=== PATIENT | male | born 1965 | race Caucasian/White ===

== ENCOUNTER 2023-04-21 20:45 | Inpatient (IN) ==
[2023-04-21] MEDS ORDERED: SODIUM CHLORIDE 0.9% 1,000 ML IV ONE (21:07)
[2023-04-21] MEDS ORDERED: ACETAMINOPHEN 1,000 MG/100 ML VIAL IV STA (21:07)
[2023-04-21 21:40] LABS: Alanine Aminotransferase 39 U/L (7-52); Albumin Globulin Ratio 1.1 (0.9-2); Albumin Level 4.4 gm/dl (3.4-5.0); Alkaline Phosphatase 62 U/L (34-104); Anion Gap 8 (3-11); Aspartate Aminotransferase 40 U/L (13-39); BUN Creatinine Ratio 10.7 (10-20); Bilirubin,Total 0.5 mg/dl (0.2-1.0); Blood Urea Nitrogen 16 mg/dl (6-23); Calcium 9.8 mg/dl (8.6-10.3); Carbon Dioxide 30 mmol/L (21-32); Chloride 95 mmol/L (98-107); Est GFR (African American) 59.5 ml/min; Est GFR (Non-African American) 51.4 ml/min; Globulin 3.9 gm/dl (2.5-4.0); Glucose 193 mg/dl (70-99(Fasting)); Magnesium 1.1 mg/dl (1.7-2.4); Potassium 4.2 mmol/L (3.5-5.1); Sodium 133 mmol/L (136-145); Total Protein 8.3 gm/dl (6.0-8.3)
[2023-04-21 21:41] LABS: Basophils # (auto) 0.07 K/uL (0.00-0.20); Basophils % (auto) 0.7 %; Eosinophils # (auto) 0.06 K/uL (0.00-0.50); Eosinophils % (auto) 0.6 %; Hematocrit (blood only) 42.5 % (42.0-52.0); Hemoglobin 14.5 g/dl (14.0-18.0); Immature Granulocytes # (auto) 0.05 K/uL (0.01-0.20); Immature Granulocytes % (auto) 0.5 %; Lymphocytes # (auto) 1.04 K/uL (1.20-3.40); Lymphocytes % (auto) 10.7 %; Mean Corpuscular Hemoglobin 30.1 pg (25.0-34.0); Mean Corpuscular Hgb Conc 34.1 g/dL (32.0-36.0); Mean Corpuscular Volume 88.2 fL (80.0-100.0); Mean Platelet Volume 9.4 fL (9.4-12.4); Monocytes # (auto) 0.92 K/uL (0.11-0.59); Monocytes % (auto) 9.4 %; Neutrophils # (auto) 7.61 K/uL (1.40-6.50); Neutrophils % (auto) 78.1 %; Platelet Count 148 K/uL (130-400); RDW Coefficient of Variation 12.7 % (11.5-14.5); RDW Standard Deviation 41.1 fL (36.4-46.3); Red Blood Count 4.82 M/uL (4.70-6.10); White Blood Count 9.75 K/ul (4.8-10.8)
[2023-04-21 21:46] LABS: Troponin I High Sensitivity 11.1 pg/ml (0-20)
--- NOTE | 2023-04-21 21:48 | Emergency Department Note ---
History of Present Illness General Chief complaint: Fever Stated complaint: Fever Time Seen by Provider: 04/21/23 21:04 History of Present Illness Provider complaint: Fever Onset (ago): day(s) 1 Associated symptoms: + fever/chills 57-year-old male presents emergency department for fever. Patient is here with his . states she is very concerned because patient has a high fever and she thinks he is shaking. Patient states he feels fine with the exception of fever and some mild body aches. He reports no cough. No headache. No chest pain. No difficulty breathing. No neck pain. No nausea vomiting or diarrhea. No hematuria or dysuria. states that she thinks that the patient's fever started because he started taking a statin medication that was recently prescribed to him. Home Medications Medication Instructions Recorded Confirmed Type metformin 1,000 mg tablet 1,000 mg PO BID 10/01/20 04/21/23 History fexofenadine 60 mg tablet 60 mg PO QAM PRN seasonal allergies 12/28/20 04/21/23 History montelukast 10 mg tablet 10 mg PO QAM 04/21/23 04/21/23 History rosuvastatin 20 mg tablet 20 mg PO DAILY 04/21/23 04/21/23 History Allergies Allergy/AdvReac Type Severity Reaction Status Date / Time No Known Allergies Allergy Unverified 04/21/23 21:41 Past Med/Surg History Medical History No pertinent family history HLD (hyperlipidemia) Surgical History No pertinent past surgical history Social History Smoking Status: Never smoker Feels Safe at Home: Yes Physical Exam Vital Signs Vital Signs - 24 hr 04/21/23 20:49 04/21/23 21:06 04/21/23 21:11 Temperature 40.3 C H Temperature Source Temporal Artery Scan Pulse Rate 123 H 105 H Pulse Rate [Apical] 103 H Respiratory Rate 18 20 Respiratory Effort / Characteristics Non-Labored Spontaneous Respiratory Depth Normal Blood Pressure 157/94 H Blood Pressure [Right Arm] 154/91 H Blood Pressure Mean 115 Blood Pressure Mean [Right Arm] 112 Blood Pressure Position Sitting Blood Pressure Position [Right Arm] Lying Pulse Oximetry 95 94 Oxygen Delivery Method Room Air Room Air Sepsis Recent Fever Within 48 Hours Yes Sepsis New/Unexplained Change in Mental Status N/A Sepsis Action Taken by Nursing Physician Notified 04/21/23 21:11 04/21/23 21:11 04/21/23 22:00 Temperature 39.4 C H Temperature Source Oral Pulse Rate Pulse Rate [Apical] 90 Respiratory Rate 20 Respiratory Effort / Characteristics Respiratory Depth Blood Pressure Blood Pressure [Right Arm] 154/91 H Blood Pressure Mean Blood Pressure Mean [Right Arm] 112 Blood Pressure Position Blood Pressure Position [Right Arm] Lying Pulse Oximetry 94 95 Oxygen Delivery Method Room Air Room Air Sepsis Recent Fever Within 48 Hours Sepsis New/Unexplained Change in Mental Status Sepsis Action Taken by Nursing 04/21/23 23:22 04/22/23 01:00 Temperature Temperature Source Pulse Rate 119 H Pulse Rate [Apical] 116 H Respiratory Rate 22 Respiratory Effort / Characteristics Respiratory Depth Blood Pressure Blood Pressure [Right Arm] 144/99 H Blood Pressure Mean Blood Pressure Mean [Right Arm] 114 Blood Pressure Position Blood Pressure Position [Right Arm] Pulse Oximetry 94 Oxygen Delivery Method Room Air Sepsis Recent Fever Within 48 Hours Sepsis New/Unexplained Change in Mental Status Sepsis Action Taken by Nursing Physical Exam GENERAL: He is oriented to person, place, and time. He appears well-developed and well-nourished. He does not appear distressed. HENT: Exam performed. - Head: Normocephalic and atraumatic. - Right Ear: External ear normal. No mastoid erythema - Left Ear: External ear normal. No mastoid erythema - Mouth/Throat: The oropharynx is clear and moist. No trismus in the jaw. No dental abscesses or uvula swelling. No oropharyngeal exudate or tonsillar abscesses. EYES: Conjunctivae and EOM are normal. Pupils are equal, round, and reactive to light. Right eye exhibits no discharge. Left eye exhibits no discharge. No scleral icterus. NECK: Normal range of motion. Neck supple. No JVD present. No spinous process tenderness present. No carotid bruit present. No rigidity. No tracheal deviation and normal range of motion present. No Brudzinski's sign and no Kernig's sign noted. CV: Tachycardic rate, regular rhythm, normal heart sounds and intact distal pulses. There is no peripheral edema. Palpable radial pulses bue. PULM/CHEST: Effort normal and breath sounds normal. No respiratory distress. No stridor. He has no wheezes. He has no rales. - Chest Wall: He exhibits no tenderness. ABD: The abdomen is soft. Bowel sounds are normal. He has no distension. No mass is present. There is no tenderness. There is no rebound, no guarding, no Hoffman's sign and no tenderness at McBurney's point. Rovsig negative. MUSC/SKEL: Normal range of motion. There is no peripheral edema, tenderness or deformity. LYMPH: No cervical adenopathy. NEURO: He is alert and oriented to person, place, and time. He has normal strength. No cranial nerve deficit or sensory deficit. Coordination and gait normal. GCS eye subscore is 4. GCS verbal subscore is 5. GCS motor subscore is 6. Cerebellar tests wnl. SKIN: Skin is warm and dry. He is not diaphoretic. PSYCH: He has a normal mood and affect. Behavior is normal. Judgment and thought content normal. Procedures Lumbar Puncture Time Out Performed: Yes Patient Position: upright Skin Prep: Povidone-Iodine 1% Local Anesthetic: lidocaine 1% Amount of anesthesia used (mL): 7 Spinal Needle Gauge: 22G Interspace Used: L3-L4 Complications: unable to obtain CSF Course Course 2104: The patient was evaluated in room A12. A complete history and physical exam was performed Cardiac monitoring: An order was placed for continuous cardiac monitoring. The monitor shows a rate of 100 with sinus rhythm interpreted by tx 2245: Vital signs stable. Patient alert and oriented x3. On reassessment patient has no nuchal rigidity. No meningeal signs. No pain on palpation of the abdomen. Patient states he feels a little bit cold but otherwise having no pain. No headache neck pain chest pain abdominal pain difficulty breathing. Labs show normal white blood cell count. Normal lactic acid level. Magnesium 1.1. Procalcitonin minimally elevated 0.51. BioFire negative. Given the patient's low magnesium, patient be admitted for magnesium repletion. Rocephin will be ordered for the patient empirically until blood cultures come back given the fever and elevated procalcitonin level. 2335: Patient was evaluated by the hospitalist Dr. Musa. When Dr. Musa evaluated the patient he was more confused. Patient be sent for stat CT scan of the head. 0020: CT scan of the head negative. Urinalysis does not appear infected based off of urine dip. Discussed the case with Dr. Musa and there is concern for MEDICATION AIDE infection encephalitis versus meningitis. Dr. Musa ordered additional acyclovir and vancomycin for the patient. Discussed with the who is at bedside the risks and benefits of treating and evaluating for meningitis versus encephalitis. We did discuss the possibility of having IR connect the LP tomorrow morning versus doing it down here. After discussion with the risks and benefits were discussed and we decided we would attempt LP down here. Written consent was signed by . 0111: Vital signs stable. Unfortunately LP was unsuccessful at obtaining CSF sample. Patient tolerated procedure well. See procedure note. [facility] will continue with plan to treat empirically for encephalitis/meningitis with ceftriaxone vancomycin and acyclovir until LP can be performed tomorrow morning by radiology. Dr. Musa updated and made aware and thanked me for attempting LP in ED. Administered Medications Discontinued Medications Acetaminophen (Ofirmev) 1,000 mg in 100 mls @ 400 mls/hr IV NOW STA Stop: 04/21/23 21:21 Last Infusion: 04/21/23 21:38 Dose: Infused Documented By: Admin: 04/21/23 21:12 Dose: 400 mls/hr Documented By: QGV Sodium Chloride (Nss) 1,000 mls @ 999 mls/hr IV .Q1H1M ONE Stop: 04/21/23 22:07 Last Infusion: 04/21/23 22:51 Dose: Infused Documented By: Admin: 04/21/23 21:12 Dose: 999 mls/hr Documented By: QGV Ceftriaxone Sodium (Rocephin) 1,000 mg in 50 mls @ 100 mls/hr IV NOW STA Stop: 04/21/23 23:13 Last Infusion: 04/21/23 23:25 Dose: Infused Documented By: Admin: 04/21/23 22:57 Dose: 100 mls/hr Documented By: QGV Magnesium Sulfate/Dextrose (Magnesium Sulfate / D5w) 1 gm in 100 mls @ 100 mls/hr IV Q1H MARK Stop: 04/22/23 00:44 Last Infusion: 04/22/23 00:19 Dose: Infused Documented By: Admin: 04/21/23 22:57 Dose: 100 mls/hr Documented By: QGV Lorazepam (Lorazepam 1 Mg/1 Ml Syr Ed Inj Use) 1 mg IV ONE STA Stop: 04/22/23 00:13 Last Admin: 04/22/23 00:28 Dose: 1 mg Documented By: ASW Morphine Sulfate (Morphine Sulfate 2 Mg/Ml Carp) 2 mg IV NOW STA Stop: 04/22/23 00:13 Last Admin: 04/22/23 00:28 Dose: 2 mg Documented By: KITW Medical Decision Making Laboratory Data Attestation: I reviewed the patient's lab results. 04/21/23 21:00 04/21/23 21:00 Lab Results 04/21/23 04/21/23 04/21/23 Range/Units 20:52 21:00 21:00 WBC 9.75 (4.8-10.8) K/ul RBC 4.82 (4.70-6.10) M/uL Hgb 14.5 (14.0-18.0) g/dl Hct 42.5 (42.0-52.0) % MCV 88.2 (80.0-100.0) fL MCH 30.1 (25.0-34.0) pg MCHC 34.1 (32.0-36.0) g/dL RDW Std Deviation 41.1 (36.4-46.3) fL RDW Coeff of Pranay 12.7 (11.5-14.5) % Plt Count 148 (130-400) K/uL MPV 9.4 (9.4-12.4) fL Immature Gran % (Auto) 0.5 % Neut % (Auto) 78.1 % Lymph % (Auto) 10.7 % [place] % (Auto) 9.4 % Eos % (Auto) 0.6 % Baso % (Auto) 0.7 % Neut # (Auto) 7.61 H (1.40-6.50) K/uL Lymph # (Auto) 1.04 L (1.20-3.40) K/uL [place] # (Auto) 0.92 H (0.11-0.59) K/uL Eos # (Auto) 0.06 (0.00-0.50) K/uL Baso # (Auto) 0.07 (0.00-0.20) K/uL Immature Gran # (Auto) 0.05 (0.01-0.20) K/uL PT 12.4 H (9.0-12.0) Seconds INR 1.1 (0.9-1.1) APTT 25.7 (21.0-31.0) Seconds PTT Ratio 0.9 Sodium 133 L (136-145) mmol/L Potassium 4.2 (3.5-5.1) mmol/L Chloride 95 L (98-107) mmol/L Carbon Dioxide 30 (21-32) mmol/L Anion Gap 8 (3-11) BUN 16 (6-23) mg/dl Creatinine 1.49 H (0.6-1.4) mg/dl Est Cr Clr Drug Dosing Not Reportable Est GFR ( Amer) 59.5 ml/min Est GFR (Non-Af Amer) 51.4 ml/min BUN/Creatinine Ratio 10.7 (10-20) Glucose 193 H (70-99(Fasting)) mg/dl POC Glucose 211 H (70-99) mg/dl Lactate 1.8 (0.4-2.0) mmol/L Calcium 9.8 (8.6-10.3) mg/dl Magnesium 1.1 L (1.7-2.4) mg/dl Total Bilirubin 0.5 (0.2-1.0) mg/dl AST 40 H (13-39) U/L ALT 39 (7-52) U/L Alkaline Phosphatase 62 (34-104) U/L Troponin I High Sens 11.1 (0-20) pg/ml Total Protein 8.3 (6.0-8.3) gm/dl Albumin 4.4 (3.4-5.0) gm/dl Globulin 3.9 (2.5-4.0) gm/dl Albumin/Globulin Ratio 1.1 (0.9-2) Procalcitonin 0.51 H (0-0.5) ng/ml Urine Color Urine Appearance (Clear) Urine pH (4.5-7.5) Ur Specific [place] (1.000-1.030) Urine Protein (Negative) Urine Glucose (UA) (Negative) Urine Ketones (Negative) Urine Blood (Negative) Urine Nitrite (Negative) Urine Bilirubin (Negative) Urine Urobilinogen (Negative) Ur Leukocyte Esterase (Negative) Urine WBC (Auto) (0-5) /hpf Urine RBC (Auto) (0-4) /hpf U Hyaline Cast (Auto) (0-5) /lpf U Epithel Cells (Auto) (0-5) /lpf Urine Bacteria (Auto) (Negative) Urine Opiates Screen (Neg) Ur Methadone, Qual (Neg) Urine Barbiturates (Neg) Ur Phencyclidine (PCP) (Neg) U Amphetamin/Meth Scrn (Neg) MDMA (Ecstasy) Screen (Neg) U Benzodiazepines Scrn (Neg) Ur Cocaine Metabolite (Neg) U Marijuana (THC) Screen (Neg) Adenovirus (PCR) Not Detected (NotDetected) Anaplasma Smear See Comment Babesia Smear See Comment B. pertussis DNA (PCR) Not Detected (NotDetected) B.parapertussis DNA PCR Not Detected (NotDetected) Lyme Disease IgG Ab Negative (Negative) Lyme Disease IgM Ab Negative (Negative) C. pneumoniae DNA (PCR) Not Detected (NotDetected) Coronavirus OC43 (PCR) Not Detected (NotDetected) Coronavirus HKU1 (PCR) Not Detected (NotDetected) Coronavirus 229E (PCR) Not Detected (NotDetected) SARS-CoV-2 (PCR) Cancelled Not Detected Coronavirus NL63 (PCR) Not Detected (NotDetected) Human Metapneumovir PCR Not Detected (NotDetected) Influenza Type A (PCR) Cancelled Influenza Type B (PCR) M. pneumoniae (PCR) (NotDetected) Parainfluenza 1 (PCR) (NotDetected) Parainfluenza 2 (PCR) (NotDetected) Parainfluenza 3 (PCR) (NotDetected) Parainfluenza 4 (PCR) (NotDetected) RSV (RT-PCR) RSV (PCR) (NotDetected) Entero/Rhino (PCR) (NotDetected) 04/21/23 04/21/23 04/21/23 Range/Units 21:00 21:00 23:58 WBC (4.8-10.8) K/ul RBC (4.70-6.10) M/uL Hgb (14.0-18.0) g/dl Hct (42.0-52.0) % MCV (80.0-100.0) fL MCH (25.0-34.0) pg MCHC (32.0-36.0) g/dL RDW Std Deviation (36.4-46.3) fL RDW Coeff of Pranay (11.5-14.5) % Plt Count (130-400) K/uL MPV (9.4-12.4) fL Immature Gran % (Auto) % Neut % (Auto) % Lymph % (Auto) % [place] % (Auto) % Eos % (Auto) % Baso % (Auto) % Neut # (Auto) (1.40-6.50) K/uL Lymph # (Auto) (1.20-3.40) K/uL [place] # (Auto) (0.11-0.59) K/uL Eos # (Auto) (0.00-0.50) K/uL Baso # (Auto) (0.00-0.20) K/uL Immature Gran # (Auto) (0.01-0.20) K/uL PT (9.0-12.0) Seconds INR (0.9-1.1) APTT (21.0-31.0) Seconds PTT Ratio Sodium (136-145) mmol/L Potassium (3.5-5.1) mmol/L Chloride (98-107) mmol/L Carbon Dioxide (21-32) mmol/L Anion Gap (3-11) BUN (6-23) mg/dl Creatinine (0.6-1.4) mg/dl Est Cr Clr Drug Dosing Est GFR ( Amer) ml/min Est GFR (Non-Af Amer) ml/min BUN/Creatinine Ratio (10-20) Glucose (70-99(Fasting)) mg/dl POC Glucose (70-99) mg/dl Lactate (0.4-2.0) mmol/L Calcium (8.6-10.3) mg/dl Magnesium (1.7-2.4) mg/dl Total Bilirubin (0.2-1.0) mg/dl AST (13-39) U/L ALT (7-52) U/L Alkaline Phosphatase (34-104) U/L Troponin I High Sens (0-20) pg/ml Total Protein (6.0-8.3) gm/dl Albumin (3.4-5.0) gm/dl Globulin (2.5-4.0) gm/dl Albumin/Globulin Ratio (0.9-2) Procalcitonin (0-0.5) ng/ml Urine Color Yellow Urine Appearance Clear (Clear) Urine pH 7.0 (4.5-7.5) Ur Specific [place] 1.016 (1.000-1.030) Urine Protein 2+ H (Negative) Urine Glucose (UA) Negative (Negative) Urine Ketones Trace H (Negative) Urine Blood 2+ H (Negative) Urine Nitrite Negative (Negative) Urine Bilirubin Negative (Negative) Urine Urobilinogen Negative (Negative) Ur Leukocyte Esterase Negative (Negative) Urine WBC (Auto) 1-5 (0-5) /hpf Urine RBC (Auto) 10-30 H (0-4) /hpf U Hyaline Cast (Auto) 1-5 (0-5) /lpf U Epithel Cells (Auto) 5-10 H (0-5) /lpf Urine Bacteria (Auto) Negative (Negative) Urine Opiates Screen Neg (Neg) Ur Methadone, Qual Neg (Neg) Urine Barbiturates Neg (Neg) Ur Phencyclidine (PCP) Neg (Neg) U Amphetamin/Meth Scrn Neg (Neg) MDMA (Ecstasy) Screen Neg (Neg) U Benzodiazepines Scrn Neg (Neg) Ur Cocaine Metabolite Neg (Neg) U Marijuana (THC) Screen Neg (Neg) Adenovirus (PCR) (NotDetected) Anaplasma Smear Babesia Smear B. pertussis DNA (PCR) (NotDetected) B.parapertussis DNA PCR (NotDetected) Lyme Disease IgG Ab (Negative) Lyme Disease IgM Ab (Negative) C. pneumoniae DNA (PCR) (NotDetected) Coronavirus OC43 (PCR) (NotDetected) Coronavirus HKU1 (PCR) (NotDetected) Coronavirus 229E (PCR) (NotDetected) SARS-CoV-2 (PCR) Coronavirus NL63 (PCR) (NotDetected) Human Metapneumovir PCR (NotDetected) Influenza Type A (PCR) Not Detected Influenza Type B (PCR) Cancelled Not Detected M. pneumoniae (PCR) Not Detected (NotDetected) Parainfluenza 1 (PCR) Not Detected (NotDetected) Parainfluenza 2 (PCR) Not Detected (NotDetected) Parainfluenza 3 (PCR) Not Detected (NotDetected) Parainfluenza 4 (PCR) Not Detected (NotDetected) RSV (RT-PCR) Cancelled RSV (PCR) Not Detected (NotDetected) Entero/Rhino (PCR) Not Detected (NotDetected) Imaging Data Attestation: I personally reviewed and interpreted this imaging study as follows: My Impression: Chest x-ray negative. Airway clear. No pneumothorax. No consolidation. No cardiomegaly or cephalization.. No free air under the diaphragm. No fractures of the skeletal structures. Radiologist's Impression: Head CT 04/21/23 23:35 Exam(s): CT HEAD Without Contrast EXAM: CT Head Without Intravenous Contrast CLINICAL HISTORY: ams. TECHNIQUE: Axial computed tomography images of the head/brain without intravenous contrast. CTDI is 75.02 mGy and DLP is 1406.31 mGy-cm. Automated exposure control was utilized for the study. A dose lowering technique was utilized adhering to the principles of ALARA. COMPARISON: No relevant prior studies available. FINDINGS: Brain: No intracranial hemorrhage. No significant mass effect. No evidence for cortical infarct. Minimal periventricular deep white matter hypodense changes. Ventricles: Unremarkable. No ventriculomegaly. Bones/joints: Unremarkable. No acute fracture. Soft tissues: Unremarkable. Sinuses: Unremarkable as visualized. No acute sinusitis. Mastoid air cells: Unremarkable as visualized. No mastoid effusion. IMPRESSION: No acute intracranial process identified. Electronically signed by: Den Gray MD 04/22/23 00:13 AM ECG Data Attestation: I personally reviewed and interpreted this ECG as follows: Rate (beats per minute): 122 Rhythm: + sinus tachycardia ECG Intervals/blocks: + Normal QRS, + Normal CO and + Normal QT-c ECG ST segments: + Normal ST segments [facility] Narrative 2104: The patient was evaluated in room A12. A complete history and physical exam was performed Cardiac monitoring: An order was placed for continuous cardiac monitoring. The monitor shows a rate of 100 with sinus rhythm interpreted by me 2245: Vital signs stable. Patient alert and oriented x3. On reassessment patient has no nuchal rigidity. No meningeal signs. No pain on palpation of the abdomen. Patient states he feels a little bit cold but otherwise having no pain. No headache neck pain chest pain abdominal pain difficulty breathing. Labs show normal white blood cell count. Normal lactic acid level. Magnesium 1.1. Procalcitonin minimally elevated 0.51. BioFire negative. Given the patient's low magnesium, patient be admitted for magnesium repletion. Rocephin will be ordered for the patient empirically until blood cultures come back given the fever and elevated procalcitonin level. 2335: Patient was evaluated by the hospitalist Dr. Musa. When Dr. Musa evaluated the patient he was more confused. Patient be sent for stat CT scan of the head. 0020: CT scan of the head negative. Urinalysis does not appear infected based off of urine dip. Discussed the case with Dr. Musa and there is concern for MEDICATION AIDE infection encephalitis versus meningitis. Dr. Musa ordered additional acyclovir and vancomycin for the patient. Discussed with the who is at bedside the risks and benefits of treating and evaluating for meningitis versus encephalitis. We did discuss the possibility of having IR connect the LP tomorrow morning versus doing it down here. After discussion with the risks and benefits were discussed and we decided we would attempt LP down here. Written consent was signed by . 0111: Vital signs stable. Unfortunately LP was unsuccessful at obtaining CSF sample. Patient tolerated procedure well. See procedure note. Patient will still be admitted to the [facility] hospitalist team and will continue with plan to treat empirically for encephalitis/meningitis with ceftriaxone vancomycin and acyclovir until LP can be performed tomorrow morning by radiology. Dr. Musa updated and made aware and thanked me for attempting LP in ED. Impression & Plan Hypomagnesemia, Fever Discharge Plan Visit Data Chief Complaint: Fever Stated Complaint: Fever ED Provider: Brice Ham Discharge Problem: Hypomagnesemia, Fever Patient Disposition: Being Evaluated by Hospitalist Forms Stand Alone Forms: My [facility] Prescriptions Prescriptions: No Action metformin 1,000 mg tablet 1,000 mg PO BID montelukast 10 mg tablet 10 mg PO QAM rosuvastatin 20 mg tablet 20 mg PO DAILY Rx Instructions: Patient staes is not giung to take anymore fexofenadine 60 mg Tablet 60 mg PO QAM PRN (Reason: seasonal allergies) Referrals Referrals: PCP,NO [Physician] -
[2023-04-21 21:53] LABS: INR 1.1 (0.9-1.1); Partial Thromboplastin Ratio 0.9; Partial Thromboplastin Time 25.7 Seconds (21.0-31.0); Prothrombin Time 12.4 Seconds (9.0-12.0)
[2023-04-21 22:03] LABS: Procalcitonin 0.51 ng/ml (0-0.5)
[2023-04-21 22:09] LABS: Lyme Ab IgG w/WB Rflx Negative (Negative); Lyme Ab IgM w/WB Rflx Negative (Negative)
[2023-04-21 22:19] LABS: Adenovirus PCR Not Detected (NotDetected); Bordetella parapertussis PCR Not Detected (NotDetected); Bordetella pertussis PCR Not Detected (NotDetected); Chlamydia pneumoniae PCR Not Detected (NotDetected); Coronavirus 229E PCR Not Detected (NotDetected); Coronavirus CoV-2 (COVID19)PCR Not Detected (NotDetected); Coronavirus HKU1 PCR Not Detected (NotDetected); Coronavirus NL63 PCR Not Detected (NotDetected); Coronavirus OC43PCR Not Detected (NotDetected); Human Metapneumovirus PCR Not Detected (NotDetected); Influenza A PCR Not Detected (NotDetected); Influenza B PCR Not Detected (NotDetected); Mycoplasma pneumoniae PCR Not Detected (NotDetected); Parainfluenza Virus 1 PCR Not Detected (NotDetected); Parainfluenza Virus 2 PCR Not Detected (NotDetected); Parainfluenza Virus 3 PCR Not Detected (NotDetected); Parainfluenza Virus 4 PCR Not Detected (NotDetected); Respiratory Syncytial VirusPCR Not Detected (NotDetected); Rhinovirus/Enterovirus PCR Not Detected (NotDetected)
[2023-04-21] MEDS ORDERED: cefTRIAXone SODIUM 1,000 MG/50 ML BAG IV STA (22:44)
[2023-04-21] MEDS: MAGNESIUM SULFATE / D5W 1 GM/100 ML BAG IV SCH (22:57)
[2023-04-21] MEDS ORDERED: VANCOMYCIN CONSULT ACTIVE PRN (23:47)
[2023-04-21] MEDS ORDERED: Patient's HEIGHT &/or WEIGHT Needed STA (23:50)
[2023-04-22] MEDS ORDERED: LORazepam 1 MG/1 ML SYR ED Inj Use IV STA (00:12)
[2023-04-22] MEDS ORDERED: MoRPHine SULFATE 2 MG/ML CARP IV STA (00:12)
[2023-04-22] MEDS ORDERED: LIDOCAINE 2%/EPINEPHRINE 1:100,000 20ML INFIL ONE (00:14)
--- NOTE | 2023-04-22 00:14 | CT Scan Report ---
Exam(s): CT HEAD Without Contrast EXAM: CT Head Without Intravenous Contrast CLINICAL HISTORY: ams. TECHNIQUE: Axial computed tomography images of the head/brain without intravenous contrast. CTDI is 75.02 mGy and DLP is 1406.31 mGy-cm. Automated exposure control was utilized for the study. A dose lowering technique was utilized adhering to the principles of ALARA. COMPARISON: No relevant prior studies available. FINDINGS: Brain: No intracranial hemorrhage. No significant mass effect. No evidence for cortical infarct. Minimal periventricular deep white matter hypodense changes. Ventricles: Unremarkable. No ventriculomegaly. Bones/joints: Unremarkable. No acute fracture. Soft tissues: Unremarkable. Sinuses: Unremarkable as visualized. No acute sinusitis. Mastoid air cells: Unremarkable as visualized. No mastoid effusion. IMPRESSION: No acute intracranial process identified. Electronically signed by: Den Gray MD 04/22/23 00:13 AM
[2023-04-22 00:15] LABS: Appearance Urine Clear (Clear); Bacteria Urine Automated Negative (Negative); Bilirubin Urine Negative (Negative); Blood Urine 2+ (Negative); Color Urine Yellow; Glucose Urine UA Negative (Negative); Ketones Urine Trace (Negative); Leukocyte Esterase Urine Negative (Negative); Nitrite Urine Negative (Negative); Protein Urine 2+ (Negative); Specific Gravity Urine 1.016 (1.000-1.030); Urobilinogen Urine Negative (Negative)
[2023-04-22] MEDS ORDERED: cefTRIAXone SODIUM 1,000 MG in DEXTROSE 5 % MINI-B 50 ML IV STA (00:17)
[2023-04-22] MEDS ORDERED: LIDOCAINE 1%/EPINEPHRINE 1:100,000 20 ML VIAL ONE (00:18)
[2023-04-22] MEDS ORDERED: VANCOMYCIN HCL 2,500 MG in SODIUM CHLORIDE 0.9% 500 ML IV ONE (00:30)
[2023-04-22] MEDS ORDERED: ACYCLOVIR SOD 950 MG in DEXTROSE 5% 250 ML IV ONE (00:30)
[2023-04-22 00:48] LABS: Amphetamines+Metham, Urine Neg (Neg); Barbiturates, Urine Neg (Neg); Benzodiazepine, Urine Neg (Neg); Cocaine, Urine Neg (Neg); MDMA (Ecstacy), Urine Neg (Neg); Methadone, Urine Neg (Neg); Opiate, Urine Neg (Neg); Phencyclidine, Urine Neg (Neg)
[2023-04-22] MEDS: SODIUM CHLORIDE 0.9% 1,000 ML IV SCH ×5 (01:18→20:41)
[2023-04-22] MEDS: MAGNESIUM SULFATE / D5W 1 GM/100 ML BAG IV SCH (01:50)
[2023-04-22] MEDS ORDERED: CARBOHYDRATES FOR HYPOGLYCEMIA PO PRN (02:17)
[2023-04-22] MEDS ORDERED: DEXTROSE 50% 50 ML SYRINGE IV PRN (02:17)
[2023-04-22] MEDS ORDERED: MAGNESIUM SULFATE / D5W 1 GM/100 ML BAG IV ONE (02:17)
[2023-04-22] MEDS ORDERED: GLUCAGON FOR INJ 1 MG VIAL SQ PRN (02:17)
[2023-04-22] MEDS ORDERED: GLUCOSE 10 TAB/TUBE PO PRN (02:17)
[2023-04-22] MEDS ORDERED: GLUCOSE 40% GEL 15 GM TUBE PO PRN (02:17)
[2023-04-22] MEDS ORDERED: NITROGLYCERIN SL 0.4 MG/TAB TAB SL PRN (02:17)
--- NOTE | 2023-04-22 02:24 | History & Physical Report ---
Date of Service April 21, 2023 Assessment & Plan (1) Fever: Plan: 57-year-old male with past med significant for type 2 diabetes, history of history of diabetic foot ulcer hyperlipidemia, obstructive sleep apnea on CPAP, chronic rhinitis ,history of herniated nucleus pulposus C6-C7 right side, history of herpes zoster recently quit chewing tobacco per was brought in because of fever and confusion. Fever Confusion Lethargic CT head is okay No leukocytosis UA is okay Chest x-ray is okay Able to flex his neck Drug screen is unremarkable Respiratory bio fire is unremarkable Lyme screen and Anaplasma screen negative Rickettsia, Q fever and typhus fever pending ER try to attempt LP but was unsuccessful Empirically start IV antibiotics Rocephin, Vanco, acyclovir IR LP ordered ID consulted IV fluids NS at the rate of 200 mL per hour IV Tylenol as needed Close monitor Diabetes Hold metformin Insulin sliding scale We will monitor blood sugars Hyperlipidemia Started on statin couple of days ago as per we will hold for now. -Sleep apnea CPAP nightly We will follow ABG-is ok Hypomagnesia replaced follow labs. Alcoholism Today morning 04/22/23 patient was feeling better and told he drinks 10-15 beers daily. Ordered banana bag, iv thiamine, folic acid and mvi gabapentin alcohol withdrawal protocol with iv ativan prn close monitor. DVT prophylaxis SCDs for now Disposition Telemetry floor Full code History of Present Illness Chief Complaint: Fever and confusion Primary Care Provider: Erickson Yoon MD 57-year-old male with past med significant for type 2 diabetes, history of history of diabetic foot ulcer, hyperlipidemia, obstructive sleep apnea on CPAP chronic rhinitis ,history of herniated nucleus pulposus C6-C7 right side history of herpes zoster recently quit chewing tobacco as per was brought in because of fever and confusion. Patient was having high fever at his workplace coming home he was sleeping mostly, seems imbalance while walking and confused so brought him here. For the ER physician patient able to tell his name and "seemed oriented but later seems to be confused. Could only tell his name but could not any answer any other questions appropriately. But again later for the ER physician he answered simple questions. Denies any headache. Able to flex his neck. Could not get any history from the patient. As per his he was doing fine until this happened. No complaints of chest pain or shortness of breath or back pain or headache. No nausea vomiting. No diarrhea. He did not eat today. Past medical history. As mentioned above Past surgical history. Colonoscopy. Vasectomy Social history. . Used to chew tobacco. Alcohol use 8 to 10/day as per epic but states does not drink regularly. No drug use as per Family history. Mother had breast cancer. Sister has skin cancer. Allergies Allergy/AdvReac Type Severity Reaction Status Date / Time No Known Allergies Allergy Unverified 04/21/23 21:41 Home Medications Medication Instructions Recorded Confirmed Type metformin 1,000 mg tablet 1,000 mg PO BID 10/01/20 04/21/23 History fexofenadine 60 mg tablet 60 mg PO QAM PRN seasonal allergies 12/28/20 04/21/23 History montelukast 10 mg tablet 10 mg PO QAM 04/21/23 04/21/23 History rosuvastatin 20 mg tablet 20 mg PO DAILY 04/21/23 04/21/23 History Past Med/Surg History Medical History No pertinent family history HLD (hyperlipidemia) Surgical History No pertinent past surgical history Social History Smoking Status: Unknown if ever smoked Hx Alcohol Use: No Hx Substance Use: No Preferred Language: [place] Communication Ability: Effective Weblogic Developer Required: No Beliefs That Will Affect Care: None Current Living Situation: Spouse Feels Safe at Home: Yes Safety Concerns: Feels Safe At This Time Assistive Devices: CPAP Review of Systems Review of Systems: Unobtainable due to reduced consciousness Physical Exam Physical Exam: General- alert and awake and oriented to name only. Somewhat lethargic. Head- atraumatic Eyes- PERRL. ENT- oropharynx clear Neck- supple, no JVD. Lungs- clear to auscultation No wheezing or crackles. Heart- regular rate and rhythm; no murmur, no gallop. Abdomen- normal bowel sounds, soft, nontender, no distension. Extremities- no pretibial edema, no erythema seen. Neuro- alert, oriented x 1;somewhat lethargic. PERRL, no facial palsy; no dysarthria;moves extremities. Skin- warm & dry Results & Data Results & Data Vital Signs (Past 12 Hours) Vital Signs Temp Pulse Pulse Resp BP BP Pulse Ox 04/21/23 23:22 116 H 22 144/99 H 94 04/21/23 22:00 39.4 C H 90 20 154/91 H 95 04/21/23 21:11 94 04/21/23 21:11 04/21/23 21:11 103 H 20 154/91 H 94 04/21/23 21:06 105 H 04/21/23 20:49 40.3 C H 123 H 18 157/94 H 95 O2 Del Method 04/21/23 23:22 Room Air 04/21/23 22:00 04/21/23 21:11 Room Air 04/21/23 21:11 Room Air 04/21/23 21:11 Room Air 04/21/23 21:06 04/21/23 20:49 Room Air Diagnostic Findings Laboratory Results WBC 9.75 K/ul (4.8-10.8) 04/21/23 21:00 RBC 4.82 M/uL (4.70-6.10) 04/21/23 21:00 Hgb 14.5 g/dl (14.0-18.0) 04/21/23 21:00 Hct 42.5 % (42.0-52.0) 04/21/23 21:00 MCV 88.2 fL (80.0-100.0) 04/21/23 21:00 MCH 30.1 pg (25.0-34.0) 04/21/23 21:00 MCHC 34.1 g/dL (32.0-36.0) 04/21/23 21:00 RDW Std Deviation 41.1 fL (36.4-46.3) 04/21/23 21:00 RDW Coeff of Pranay 12.7 % (11.5-14.5) 04/21/23 21:00 Plt Count 148 K/uL (130-400) 04/21/23 21:00 MPV 9.4 fL (9.4-12.4) 04/21/23 21:00 Immature Gran % (Auto) 0.5 % 04/21/23 21:00 Neut % (Auto) 78.1 % 04/21/23 21:00 Lymph % (Auto) 10.7 % 04/21/23 21:00 Power % (Auto) 9.4 % 04/21/23 21:00 Eos % (Auto) 0.6 % 04/21/23 21:00 Baso % (Auto) 0.7 % 04/21/23 21:00 Neut # (Auto) 7.61 K/uL (1.40-6.50) H 04/21/23 21:00 Lymph # (Auto) 1.04 K/uL (1.20-3.40) L 04/21/23 21:00 Power # (Auto) 0.92 K/uL (0.11-0.59) H 04/21/23 21:00 Eos # (Auto) 0.06 K/uL (0.00-0.50) 04/21/23 21:00 Baso # (Auto) 0.07 K/uL (0.00-0.20) 04/21/23 21:00 Immature Gran # (Auto) 0.05 K/uL (0.01-0.20) 04/21/23 21:00 PT 12.4 Seconds (9.0-12.0) H 04/21/23 21:00 INR 1.1 (0.9-1.1) 04/21/23 21:00 APTT 25.7 Seconds (21.0-31.0) 04/21/23 21:00 PTT Ratio 0.9 04/21/23 21:00 Sodium 133 mmol/L (136-145) L 04/21/23 21:00 Potassium 4.2 mmol/L (3.5-5.1) 04/21/23 21:00 Chloride 95 mmol/L (98-107) L 04/21/23 21:00 Carbon Dioxide 30 mmol/L (21-32) 04/21/23 21:00 Anion Gap 8 (3-11) 04/21/23 21:00 BUN 16 mg/dl (6-23) 04/21/23 21:00 Creatinine 1.49 mg/dl (0.6-1.4) H 04/21/23 21:00 Est Cr Clr Drug Dosing Not Reportable 04/21/23 21:00 Est GFR ( Amer) 59.5 ml/min 04/21/23 21:00 Est GFR (Non-Af Amer) 51.4 ml/min 04/21/23 21:00 BUN/Creatinine Ratio 10.7 (10-20) 04/21/23 21:00 Glucose 193 mg/dl (70-99(Fasting)) H 04/21/23 21:00 POC Glucose 211 mg/dl (70-99) H 04/21/23 20:52 Lactate 1.8 mmol/L (0.4-2.0) 04/21/23 21:00 Calcium 9.8 mg/dl (8.6-10.3) 04/21/23 21:00 Magnesium 1.1 mg/dl (1.7-2.4) L 04/21/23 21:00 Total Bilirubin 0.5 mg/dl (0.2-1.0) 04/21/23 21:00 AST 40 U/L (13-39) H 04/21/23 21:00 ALT 39 U/L (7-52) 04/21/23 21:00 Alkaline Phosphatase 62 U/L (34-104) 04/21/23 21:00 Troponin I High Sens 11.1 pg/ml (0-20) 04/21/23 21:00 Total Protein 8.3 gm/dl (6.0-8.3) 04/21/23 21:00 Albumin 4.4 gm/dl (3.4-5.0) 04/21/23 21:00 Globulin 3.9 gm/dl (2.5-4.0) 04/21/23 21:00 Albumin/Globulin Ratio 1.1 (0.9-2) 04/21/23 21:00 Procalcitonin 0.51 ng/ml (0-0.5) H 04/21/23 21:00 Urine Color Yellow 04/21/23 23:58 Urine Appearance Clear (Clear) 04/21/23 23:58 Urine pH 7.0 (4.5-7.5) 04/21/23 23:58 Ur Specific [place] 1.016 (1.000-1.030) 04/21/23 23:58 Urine Protein 2+ (Negative) H 04/21/23 23:58 Urine Glucose (UA) Negative (Negative) 04/21/23 23:58 Urine Ketones Trace (Negative) H 04/21/23 23:58 Urine Blood 2+ (Negative) H 04/21/23 23:58 Urine Nitrite Negative (Negative) 04/21/23 23:58 Urine Bilirubin Negative (Negative) 04/21/23 23:58 Urine Urobilinogen Negative (Negative) 04/21/23 23:58 Ur Leukocyte Esterase Negative (Negative) 04/21/23 23:58 Urine WBC (Auto) 1-5 /hpf (0-5) 04/21/23 23:58 Urine RBC (Auto) 10-30 /hpf (0-4) H 04/21/23 23:58 U Hyaline Cast (Auto) 1-5 /lpf (0-5) 04/21/23 23:58 U Epithel Cells (Auto) 5-10 /lpf (0-5) H 04/21/23 23:58 Urine Bacteria (Auto) Negative (Negative) 04/21/23 23:58 Urine Opiates Screen Neg (Neg) 04/21/23 23:58 Ur Methadone, Qual Neg (Neg) 04/21/23 23:58 Urine Barbiturates Neg (Neg) 04/21/23 23:58 Ur Phencyclidine (PCP) Neg (Neg) 04/21/23 23:58 U Amphetamin/Meth Scrn Neg (Neg) 04/21/23 23:58 MDMA (Ecstasy) Screen Neg (Neg) 04/21/23 23:58 U Benzodiazepines Scrn Neg (Neg) 04/21/23 23:58 Ur Cocaine Metabolite Neg (Neg) 04/21/23 23:58 U Marijuana (THC) Screen Neg (Neg) 04/21/23 23:58 Adenovirus (PCR) Not Detected (NotDetected) 04/21/23 21:00 Anaplasma Smear See Comment 04/21/23 21:00 Babesia Smear See Comment 04/21/23 21:00 B. pertussis DNA (PCR) Not Detected (NotDetected) 04/21/23 21:00 B.parapertussis DNA PCR Not Detected (NotDetected) 04/21/23 21:00 Lyme Disease IgG Ab Negative (Negative) 04/21/23 21:00 Lyme Disease IgM Ab Negative (Negative) 04/21/23 21:00 C. pneumoniae DNA (PCR) Not Detected (NotDetected) 04/21/23 21:00 Coronavirus OC43 (PCR) Not Detected (NotDetected) 04/21/23 21:00 Coronavirus HKU1 (PCR) Not Detected (NotDetected) 04/21/23 21:00 Coronavirus 229E (PCR) Not Detected (NotDetected) 04/21/23 21:00 SARS-CoV-2 (PCR) Cancelled 04/21/23 21:00 SARS-CoV-2 (PCR) Not Detected (NotDetected) 04/21/23 21:00 Coronavirus NL63 (PCR) Not Detected (NotDetected) 04/21/23 21:00 Human Metapneumovir PCR Not Detected (NotDetected) 04/21/23 21:00 Influenza Type A (PCR) Cancelled 04/21/23 21:00 Influenza Type A (PCR) Not Detected (NotDetected) 04/21/23 21:00 Influenza Type B (PCR) Cancelled 04/21/23 21:00 Influenza Type B (PCR) Not Detected (NotDetected) 04/21/23 21:00 M. pneumoniae (PCR) Not Detected (NotDetected) 04/21/23 21:00 Parainfluenza 1 (PCR) Not Detected (NotDetected) 04/21/23 21:00 Parainfluenza 2 (PCR) Not Detected (NotDetected) 04/21/23 21:00 Parainfluenza 3 (PCR) Not Detected (NotDetected) 04/21/23 21:00 Parainfluenza 4 (PCR) Not Detected (NotDetected) 04/21/23 21:00 RSV (RT-PCR) Cancelled 04/21/23 21:00 RSV (PCR) Not Detected (NotDetected) 04/21/23 21:00 Entero/Rhino (PCR) Not Detected (NotDetected) 04/21/23 21:[address] 04/21/23 23:35 Exam(s): CT HEAD Without Contrast EXAM: CT Head Without Intravenous Contrast CLINICAL HISTORY: ams. TECHNIQUE: Axial computed tomography images of the head/brain without intravenous contrast. CTDI is 75.02 mGy and DLP is 1406.31 mGy-cm. Automated exposure control was utilized for the study. A dose lowering technique was utilized adhering to the principles of ALARA. COMPARISON: No relevant prior studies available. FINDINGS: Brain: No intracranial hemorrhage. No significant mass effect. No evidence for cortical infarct. Minimal periventricular deep white matter hypodense changes. Ventricles: Unremarkable. No ventriculomegaly. Bones/joints: Unremarkable. No acute fracture. Soft tissues: Unremarkable. Sinuses: Unremarkable as visualized. No acute sinusitis. Mastoid air cells: Unremarkable as visualized. No mastoid effusion. IMPRESSION: No acute intracranial process identified. Electronically signed by: Den Gray MD 04/22/23 00:13 AM ECG Additional Comments: ECG. Sinus tachycardia rate of 122. No acute ST changes seen. Code Status & VTE Plan VTE Prophylaxis Plan VTE Prophylaxis will be ordered: Yes
[2023-04-22] MEDS: INSULIN ASPART PER UNIT CHARGE SC SCH ×5 (02:49→20:42)
[2023-04-22 05:21] LABS: Basophils % (auto) 0.7 %; Eosinophils # (auto) 0.06 K/uL (0.00-0.50); Eosinophils % (auto) 0.4 %; Hematocrit (blood only) 39.1 % (42.0-52.0); Hemoglobin 13.7 g/dl (14.0-18.0); Immature Granulocytes # (auto) 0.11 K/uL (0.01-0.20); Immature Granulocytes % (auto) 0.8 %; Mean Corpuscular Hemoglobin 30.4 pg (25.0-34.0); Mean Corpuscular Volume 86.7 fL (80.0-100.0); Mean Platelet Volume 9.2 fL (9.4-12.4); Monocytes # (auto) 0.83 K/uL (0.11-0.59); Monocytes % (auto) 5.7 %; Neutrophils # (auto) 12.08 K/uL (1.40-6.50); Neutrophils % (auto) 83.4 %; Platelet Count 133 K/uL (130-400); Red Blood Count 4.51 M/uL (4.70-6.10); White Blood Count 14.48 K/ul (4.8-10.8)
[2023-04-22] MEDS: ACETAMINOPHEN 1,000 MG/100 ML VIAL IV PRN ×2 (05:33→14:41)
[2023-04-22 05:36] LABS: Albumin Level 3.9 gm/dl (3.4-5.0); BUN Creatinine Ratio 11.1 (10-20); Bilirubin Direct 0.1 mg/dl (0-0.2); Bilirubin,Total 0.5 mg/dl (0.2-1.0); Calcium 8.6 mg/dl (8.6-10.3); Creatinine Clr Calc Pharmacy 81.3 ml/min; Est GFR (African American) 67.1 ml/min; Est GFR (Non-African American) 57.9 ml/min; Magnesium 1.7 mg/dl (1.7-2.4); Phosphorus 3.7 mg/dl (2.5-4.9); Total Protein 7.3 gm/dl (6.0-8.3)
[2023-04-22] MEDS ORDERED: THIAMINE HCL 100 MG in SYRINGE 9 ML IV STA (06:15)
[2023-04-22] MEDS ORDERED: LORazepam 1 MG in SYRINGE 0.5 ML IV PRN (06:23)
[2023-04-22] MEDS ORDERED: Ativan IV Alcohol Withdrawal--Active Protocol IV PRN (06:23)
[2023-04-22] MEDS ORDERED: LORazepam 2 MG in SYRINGE 1 ML IV PRN (06:23)
[2023-04-22] MEDS ORDERED: GABAPENTIN 1200MG ALCOHOL WITHDRAWAL LOAD PO STA (06:23)
[2023-04-22] MEDS ORDERED: LORazepam 3 MG in SYRINGE 1.5 ML IV PRN (06:23)
[2023-04-22] MEDS ORDERED: GABAPENTIN 600 MG TAB PO ONE (06:30)
[2023-04-22] MEDS ORDERED: MULTI-VITAMIN INFUSION 10 ML, THIAMINE HCL 100 MG, FOLIC ACID 1 MG in SODIUM CHLORIDE 0... IV ONE (06:45)
--- NOTE | 2023-04-22 07:15 | XRay Report ---
XR chest 1V not portable HISTORY: 57 years-old Male Sepsis acute sepsis COMPARISON: 12/28/2020 TECHNIQUE: AP view of the chest FINDINGS: Cardiomediastinal and hilar silhouettes are within normal limits. No pneumothorax, pleural effusion o r airspace consolidation. Spondylotic spurring of the spine. IMPRESSION: No acute process. ACT 112: Negative or not required by law. The above report was generated using voice recognition software. It may contain grammatical, syntax o r spelling errors. Electronically signed by: Roberto Wright M.D. 04/22/2023 7:14 AM
[2023-04-22 07:36] LABS: A calco-baum cmplx NotReported Not Detected (NotDetected); Bact fragilis Not Reported Not Detected (NotDetected); C auris Not Reported Not Detected (NotDetected); Calbicans Not Reported Not Detected (NotDetected); Candida glabrata Not Reported Not Detected (NotDetected); Candida krusei Not Reported Not Detected (NotDetected); Cneoformans/gatti Not Reported Not Detected (NotDetected); Cparapsilosis Not Reported Not Detected (NotDetected); E cloacae compx Not Reported Not Detected (NotDetected); Efaecalis Not Reported Not Detected (NotDetected); Efaecium Not Reported Not Detected (NotDetected); Enterobacterales Not Reported Not Detected (NotDetected); Escherichia coli Not Reported Not Detected (NotDetected); H influenzae Not Reported Not Detected (NotDetected); K aerogenes Not Reported Not Detected (NotDetected); Koxytoca Not Reported Not Detected (NotDetected); Kpneumoniae grp Not Reported Not Detected (NotDetected); Lmonocyt Not Reported Not Detected (NotDetected); N meningitidis Not Reported Not Detected (NotDetected); P aeruginosa Not Reported Not Detected (NotDetected); Proteus spp Not Reported Not Detected (NotDetected); Salmonella spp Not Reported Not Detected (NotDetected); Smarcescens Not Reported Not Detected (NotDetected); Staph lugdunensis Not Reported Not Detected (NotDetected); Staph spp. Not Reported Not Detected (NotDetected); Staphaureus Not Reported Not Detected (NotDetected); Staphepi Not Reported Not Detected (NotDetected); Stenmaltophilia Not Reported Not Detected (NotDetected); Strep agal(GrpB) Not Reported DETECTED (NotDetected); Strep pneum Not Reported Not Detected (NotDetected); Strep pyog (GrpA) Not Reported Not Detected (NotDetected); Strep spp Not Reported DETECTED (NotDetected); Streptococcus spp DETECTED (NotDetected)
[2023-04-22 07:52] LABS: Streptococcus agalactiae(GrpB) DETECTED (NotDetected)
[2023-04-22] MEDS ORDERED: ACYCLOVIR SOD 950 MG in DEXTROSE 5% 250 ML IV SCH (09:00)
[2023-04-22] MEDS: FOLIC ACID 1 MG in SYRINGE 9.8 ML IV SCH (09:18)
[2023-04-22] MEDS: THIAMINE HCL 100 MG in SYRINGE 9 ML IV SCH (09:18)
[2023-04-22] MEDS: MONTELUKAST SODIUM 10 MG TABLET PO SCH (09:18)
[2023-04-22 09:31] LABS: Estimated Average Glucose 186 mg/dl; Hemoglobin A1C 8.1 % (4.5-5.6)
[2023-04-22 09:34] LABS: iSTAT Arterial Blood Gas HCO3 27 meg/L (19-24); iSTAT Arterial Blood Gas pCO2 39 mmHg (35-46); iSTAT Arterial Blood Gas pH 7.46 (7.35-7.45); iSTAT Arterial Blood Gas pO2 88 mmHg (80-95); iSTAT Carbon Dioxide 28 mmol/L (24-31); iSTAT Hematocrit 37 % (42-52); iSTAT Hemoglobin 12.6 g/dl (14.0-18.0); iSTAT Potassium 3.7 mmol/L (3.3-5.0); iSTAT Sodium 137 mmol/L (135-144)
[2023-04-22] MEDS: cefTRIAXone SODIUM 2,000 MG in DEXTROSE 5 % MINI-B 50 ML IV SCH (11:59)
[2023-04-22 12:18] LABS: CSF Count Tube # 1
--- NOTE | 2023-04-22 12:34 | Electrocardiogram Report ---
Test Reason : Blood Pressure : / mmHG Vent. Rate : 122 BPM Atrial Rate : 122 BPM P-R Int : 154 ms QRS Dur : 078 ms QT Int : 298 ms P-R-T Axes : 029 051 023 degrees QTc Int : 424 ms Sinus tachycardia Poor R wave progression, consider anterior SD vs. lead placement vs. LVH Abnormal ECG No previous ECGs available Confirmed by James Berg ([id number]) on 04/22/2023 12:34:11 PM Referred By: REFERRED SELF Confirmed By:James Berg
[2023-04-22 13:01] LABS: Appearance CSF Bloody; CSF Xanthrochromic No xanthochromia; Color CSF Red; Red Blood Cell CSF Auto 6000 /uL (0-); White Blood Cell CSF Auto 31 /uL (0-5)
[2023-04-22 13:02] LABS: Total Protein CSF 120.8 mg/dl (15-45)
[2023-04-22] MEDS: GABAPENTIN 600 MG TAB PO SCH ×3 (13:06→18:44)
[2023-04-22] MEDS: CEROVITE ADV FORMULA TAB PO SCH (13:13)
--- NOTE | 2023-04-22 13:19 | Fluoroscopy Report ---
Lumbar puncture under fluoroscopy INDICATION: Evaluate for meningitis; confusion/fever PROCEDURE: Procedure and risks were explained. Informed consent was obtained. A final timeout was com pleted. The patient was placed prone on the fluoroscopic exam table. The lower lumbar region was prep ped and draped in sterile fashion. 1% lidocaine was utilized for skin anesthesia. Utilizing fluoroscopic guidance, a 22-gauge spinal needle was advanced into the intrathecal space at the L 3-4 disc space level. 3 spot images were obtained. Approximately 4.5 mL of blood-tinged CSF flu id was removed and sent to lab for analysis. The needle became dislodged and additional attempts at g aining access were unsuccessful secondary to the patient's rigors. The needle was removed and Band- d applied. The patient tolerated the procedure well. Vital signs will be monitored postprocedure. Total fluoroscopy time 53 seconds. DAP is 26.9 mcGy/m2. IMPRESSION: Lumbar puncture as detailed above. Performed, dictated, and signed by Den Yost PA-C; to be co-signed by Dr. Roberto Wright. Electronically signed by: Roberto Wright M.D. 04/22/2023 1:43 PM
[2023-04-22 13:43] LABS: Cryptococcus neoformans/ga PCR Not Detected (NotDetected); Cytomegalovirus PCR Not Detected (NotDetected); Enterovirus PCR Not Detected (NotDetected); Escherichia coli K1 PCR Not Detected (NotDetected); Haemophilius influenzae PCR Not Detected (NotDetected); Herpes Simplex Virus 1 PCR Not Detected (NotDetected); Herpes Simplex Virus 2 PCR Not Detected (NotDetected); Human Herpes Virus 6 PCR Not Detected (NotDetected); Human Parechovirus PCR Not Detected (NotDetected); Listeria monocytogenes PCR Not Detected (NotDetected); Neisseria meningitidis PCR Not Detected (NotDetected); Streptococcus agalactiae PCR Not Detected (NotDetected); Streptococcus pneumoniae PCR Not Detected (NotDetected); Varicella Zoster Virus PCR Not Detected (NotDetected)
[2023-04-22] MEDS ORDERED: VANCOMYCIN HCL 1,000 MG in SODIUM CHLORIDE 0.9% 250 ML IV SCH (14:00)
--- NOTE | 2023-04-22 15:11 | Pharmacy Report ---
Pharmacy PK ABX Note - Date of Service April 22, 2023 - Assessment and Plan Assessment 57 year old M receiving vanomcyin/ceftriaxone/acyclovir for treatment of Strep. agalactiae bacteremia/possible meningitis. Pertinent microbiologic data includes: 4/4 blood cultures with gram positive cocci in chains, Strep. agalactiae per culture. LP was performed this morning (post antibiotics) with negative biofire. ID is consulted and has seen the patient awaiting recommendations for possible de-escalation. Patient continues to be febrile with leukocytosis. Plan Vancomycin- ordered empirically * Loading dose: 2500 mg IV x 1 * Maintenance dose: 1000 mg IV every 12 hours * Regimen is predicted to achieve target AUC/RASHEED of 400-600 mg/L.hr (494) * Random level if continues > 48 hours Pharmacy will continue to follow and will adjust dose/frequency as necessary. Thank you. Pharmacy has transitioned to AUC monitoring for vancomycin. AUC/RASHEED is the preferred PK/PD target and is associated with decreased risk of nephrotoxicity compared to traditional trough targets.
[2023-04-22] MEDS ORDERED: Nursing to Pharmacy Communication SCH (16:30)
--- NOTE | 2023-04-22 16:39 | Hospitalist Progress Note ---
Date of Service April 22, 2023 Assessment & Plan (1) Acute confusion: Plan: 57-year-old male with past med significant for type 2 diabetes, history of history of diabetic foot ulcer hyperlipidemia, obstructive sleep apnea on CPAP, chronic rhinitis ,history of herniated nucleus pulposus C6-C7 right side, history of herpes zoster recently quit chewing tobacco per was brought in because of fever and confusion. Associated with headache, aches and pains all over the body, so waiting but denies any nausea vomiting, photophobia or any neck stiffness Suspected to be acute meningitis and is status post LP which remains unremarkable He was started with intravenous acyclovir, vancomycin and ceftriaxone Appreciate ID input and recommendation-we will stop intravenous vancomycin and acyclovir and get an echocardiogram We will continue intravenous ceftriaxone for now and await blood cultures and serology back He has been feeling better but is still having fever and chills (2) Fever: Plan: As above Denies any problem with urine or bowel habit. No cough and no phlegm and shortness of breath CT of the head, chest x-ray and UA are unremarkable IV fluids NS at the rate of 200 mL per hour IV Tylenol as needed Close monitor Diabetes Hold metformin Insulin sliding scale We will monitor blood sugars Hyperlipidemia Started on statin couple of days ago as per we will hold for now. -Sleep apnea CPAP nightly We will follow ABG-is ok Has been saturating normally on room air Hypomagnesia replaced follow labs. Alcoholism Today morning 04/22/23 patient was feeling better and told he drinks 10-15 beers daily. Ordered banana bag, iv thiamine, folic acid and mvi gabapentin alcohol withdrawal protocol with iv ativan prn close monitor. No signs and or symptoms of withdrawal DVT prophylaxis SCDs for now Disposition Telemetry floor Full code Admission and Anticipated Discharge Date Admission Date: April 21, 2023 Subjective 05/02/2023 The patient was seen and examined in telemetry unit He has been feeling better and the confusion is almost gone Still has fever and chills-minimal headache but no neck is stiffness and/or visual symptoms/photophobia no nausea no vomiting Review of Systems Review of Systems: All systems reviewed and are unremarkable except as noted below Physical Exam Physical Exam: Lying in bed comfortably Constitutional: well developed, well nourished, + ill appearing and + obese Eyes: PERRL, conjunctivae normal, anicteric sclerae ENMT: external ear and nose normal, oropharynx normal Neck: trachea midline, no thyromegaly No neck stiffness Respiratory: no respiratory distress Auscultation: lungs clear to auscultation bilaterally Cardiovascular: Rate/Rhythm: regular rate and regular rhythm; not tachycardic Heart Sounds: normal S1 and normal S2; no murmur Extremities: + edema (Trace edema bilaterally) Gastrointestinal (Abdomen): Inspection/Auscultation: + abdomen distended (Soft) and normal bowel sounds Percussion/Palpation: abdomen soft; abdomen nontender Musculoskeletal: No acute arthritis involving any joint Neurologic: normal touch/pain/proprioception and moves all extremities; no focal motor deficits and not confused Psychiatric: A+Ox3, euthymic affect Lymphatic: no cervical or axillary lymphadenopathy Results & Data Results & Data Vital Signs (Past 12 Hours) Vital Signs Temp Pulse Pulse Resp BP BP Pulse Ox 04/22/23 14:00 38.5 C H 106 H 16 128/77 98 04/22/23 13:12 04/22/23 11:58 39.5 C H 04/22/23 07:19 92 H 15 114/69 96 04/22/23 06:17 112 H 26 H 97 04/22/23 06:00 115 H 35 H 113/70 93 04/22/23 05:33 38.3 C H 04/22/23 05:30 119 H 36 H 165/107 H 04/22/23 05:00 112 H 32 H 153/96 H 93 04/22/23 04:30 98 H 18 135/85 O2 Del Method O2 Flow Rate FiO2 04/22/23 14:00 Room Air 04/22/23 13:12 Nasal Cannula 4 04/22/23 11:58 04/22/23 07:19 Nasal Cannula 4 04/22/23 06:17 40 04/22/23 06:00 Nasal Cannula 3 04/22/23 05:33 04/22/23 05:30 04/22/23 05:00 04/22/23 04:30 Laboratory Results Short CBC 04/21/23 04/22/23 Range/Units 21:00 05:03 WBC 9.75 14.48 H (4.8-10.8) K/ul Hgb 14.5 13.7 L (14.0-18.0) g/dl Hct 42.5 39.1 L (42.0-52.0) % Plt Count 148 133 (130-400) K/uL BMP 04/21/23 04/22/23 21:00 05:03 Sodium 133 L 135 L Potassium 4.2 4.0 Chloride 95 L 100 Carbon Dioxide 30 26 BUN 16 15 Creatinine 1.49 H 1.35 Glucose 193 H 167 H Calcium 9.8 8.6 Cardiac Enzymes 04/22/23 Range/Units 05:03 Total Creatine Kinase 603 H (30-223) U/L Liver Function 04/21/23 04/22/23 Range/Units 21:00 05:03 Total Bilirubin 0.5 0.5 (0.2-1.0) mg/dl Direct Bilirubin 0.1 (0-0.2) mg/dl AST 40 H 52 H (13-39) U/L ALT 39 39 (7-52) U/L Alkaline Phosphatase 62 50 (34-104) U/L Albumin 4.4 3.9 (3.4-5.0) gm/dl Urine 04/21/23 Range/Units 23:58 Urine Color Yellow Urine Appearance Clear (Clear) Urine pH 7.0 (4.5-7.5) Ur Specific [place] 1.016 (1.000-1.030) Urine Protein 2+ H (Negative) Urine Glucose (UA) Negative (Negative) Medications Administered Current Inpatient Medications Dextrose (Dextrose 50% 50 Ml Syringe) 25 - 50 ml IV UD PRN; Protocol PRN Reason: Hypoglycemia Protocol Stop: 05/22/23 02:16 Gabapentin (Gabapentin 600 Mg Tab) 600 mg PO Q24H MARK Stop: 04/25/23 18:31 Last Admin: 04/22/23 13:06 Dose: 600 mg Gabapentin (Gabapentin 600 Mg Tab) 600 mg PO Q12H MARK Stop: 04/24/23 18:31 Gabapentin (Gabapentin 600 Mg Tab) 600 mg PO Q8H MARK Stop: 04/23/23 18:31 Gabapentin (Gabapentin 600 Mg Tab) 600 mg PO Q6H MARK Stop: 04/22/23 18:31 Last Admin: 04/22/23 14:41 Dose: 600 mg Glucagon (Glucagon For Inj 1 Mg Vial) 1 mg SQ UD PRN; Protocol PRN Reason: Hypoglycemia Protocol Stop: 05/22/23 02:16 Glucose (Glucose 10 Tab/Tube) 4 - 8 tab PO UD PRN; Protocol PRN Reason: Hypoglycemia Treatment Stop: 05/22/23 02:16 Glucose (Glucose 40% Gel 15 Gm Tube) 15 - 30 gm PO UD PRN; Protocol PRN Reason: Hypoglycemia Protocol Stop: 05/22/23 02:16 Sodium Chloride (Nss) 1,000 mls @ 200 mls/hr IV .Q5H [facility] Stop: 05/21/23 23:44 Last Admin: 04/22/23 11:59 Dose: 200 mls/hr Acetaminophen (Ofirmev) 1,000 mg in 100 mls @ 400 mls/hr IV Q8H PRN PRN Reason: Pain or Fever Stop: 04/25/23 02:16 Last Infusion: 04/22/23 14:59 Dose: Infused Ceftriaxone Sodium 2,000 mg/ (Dextrose) 50 mls @ 100 mls/hr IV Q12H [facility]; Protocol Stop: 05/02/23 11:59 Last Infusion: 04/22/23 13:13 Dose: Infused Thiamine HCl 100 mg/ Syringe 10 mls @ 2 mls/min IV QAM [facility] Stop: 05/22/23 08:59 Last Admin: 04/22/23 09:18 Dose: 2 mls/min Folic Acid 1 mg/ Syringe 10 mls @ 5 mls/min IV QAM [facility] Stop: 05/22/23 08:59 Last Admin: 04/22/23 09:18 Dose: 5 mls/min Lorazepam 1 mg/ Syringe 1 mls @ 2 mls/min IV UD PRN; Protocol PRN Reason: EtOH Withdrawal AWSS Score 6,7 Stop: 05/22/23 06:22 Lorazepam 2 mg/ Syringe 2 mls @ 2 mls/min IV UD PRN; Protocol PRN Reason: EtOH Withdrawal AWSS Score 8,9 Stop: 05/22/23 06:22 Lorazepam 3 mg/ Syringe 3 mls @ 2 mls/min IV ONCE PRN; Protocol PRN Reason: EtOH Withdrawal AWSS Score 10+ Insulin Aspart (Insulin Aspart Per Unit Charge) 0 units SC ACHS [facility] Stop: 05/22/23 16:29 Miscellaneous (Carbohydrates For Hypoglycemia ) 15 - 30 gm PO UD PRN PRN Reason: Hypoglycemia Protocol Stop: 05/22/23 02:16 Montelukast Sodium (Montelukast Sodium 10 Mg Tablet) 10 mg PO QAM [facility] Stop: 05/22/23 08:59 Last Admin: 04/22/23 09:18 Dose: 10 mg Multivitamins/Minerals (Cerovite Adv Formula Tab) 1 tab PO QAM [facility] Stop: 05/22/23 08:59 Last Admin: 04/22/23 13:13 Dose: Not Given Nitroglycerin (Nitroglycerin Sl 0.4 Mg/Tab Tab) 0.4 mg SL Q5M PRN PRN Reason: Chest Pain Stop: 05/22/23 02:16
--- NOTE | 2023-04-22 16:50 | Infectious Disease Consult ---
Date of Service April 22, 2023 Telehealth Information I performed this visit using a real-time telehealth connection between my location and the patients location ([facility]). After connecting through interactive tele-video, patient was identified by name and date of and/or wristband check.Patient (or authorized healthcare veterans service representative) was informed that this was a telemedicine visit and it was being conducted confidentially over secure lines. My office door was closed and no one else was present in the room with me.Patient (or authorized healthcare veterans service representative) provided consent to proceed with the visit, expressed an understanding of privacy and security of the telemedicine visit, and gave permission to have a hospital veterans service representative in the room in order to assist with the visit and to conduct portions of the visit, as needed. I informed the patient (or authorized healthcare veterans service representative) that I reviewed their record and presented the opportunity for them to ask any questions regarding the visit today. The patient agreed to participate. Assessment & Plan (1) Bacteremia due to group B Streptococcus: (2) Aseptic meningitis: (3) Fever: Plan - At this point, there is no well identified source of the group B strep bacteremia. The CSF analysis is suggestive of aseptic meningitis rather than bacterial meningitis. Also, the meningitis encephalitis panel was negative for strep agalactiae. I do not have a clear explanation of having aseptic meningitis in the context of group B strep bacteremia; however, the possibility of having to concomitant diseases should be taken into consideration. - Given that the meningitis encephalitis panel is negative, please discontinue acyclovir and vancomycin and keep only on ceftriaxone 2 g IV twice daily (meningitis panel) until the CSF culture is back. - Please obtain a transthoracic echo to investigate for endocarditis especially with no well identified etiology of the group B strep bacteremia set thus far. - Please keep sending blood cultures every 48 hours. - Thank you for consulting ID. We will continue to follow. History of Present Illness History of Present Illness Mr. Fernandez is a 57-year-old man with medical history of type 2 diabetes who was admitted to [facility] on 04/21 because of fever and chills. According to the patient's report, he mentioned that on Wednesday morning (04/19), he started having fevers and chills out of the sudden. The illness was associated with significant generalized fatigue and rigors which prompted him to come to the emergency department. He did not mentioned any flu-like illness prior to the fever. He also did not have any UTI, abdominal symptoms, headache, photophobia or neck pain. On presentation, he was febrile at 40.3, tachycardic at 123 and hypertensive at 157/94. Initial blood workup showed hyponatremia with acute kidney injury as well as low magnesium and mildly elevated AST. He did not have any leukocytosis on admission; however, today his WBC was 14 (ANC 12). Shortly after admission 4/4 bottles of blood culture came back positive for g positive cocci in chains (identified as strep agalactiae by [email or web address]). He also had an LP performed this morning which showed 31 nucleated cells (50% PMNs and 50% mononuclear cells) with a glucose of 92 and elevated protein of 120.8. The meningitis encephalitis panel was negative. Id team was consulted for further recommendations and to help with the management of antibiotics. Allergies Allergy/AdvReac Type Severity Reaction Status Date / Time No Known Allergies Allergy Unverified 04/21/23 21:41 Home Medications Medication Instructions Recorded Confirmed Type metformin 1,000 mg tablet 1,000 mg PO BID 10/01/20 04/21/23 History fexofenadine 60 mg tablet 60 mg PO QAM PRN seasonal allergies 12/28/20 04/21/23 History montelukast 10 mg tablet 10 mg PO QAM 04/21/23 04/21/23 History rosuvastatin 20 mg tablet 20 mg PO DAILY 04/21/23 04/21/23 History Patient History Medical History No pertinent family history HLD (hyperlipidemia) Surgical History No pertinent past surgical history Social History Smoking Status: Unknown if ever smoked Hx Alcohol Use: No Hx Substance Use: No Preferred Language: Estonian Communication Ability: Effective Tin Can Feeder Required: No Beliefs That Will Affect Care: Spiritual Current Living Situation: Spouse Feels Safe at Home: Yes Safety Concerns: Feels Safe At This Time Assistive Devices: CPAP Review of Systems Constitutional: Fatigue, fever & chills HEENT: no sore throat, no nasal discharge Cardiovascular: no chest pain, or palpitations Respiratory: no shortness of breath, no cough Gastrointestinal: No abdominal pain or diarrhea : No dysuria or frequency Musculoskeletal/Skin: No muscle ache or rash. Neurologic: no dizziness or headache, or photophobia or neck stiffness Physical Exam Couldn't be performed as the consult was conducted via telemed. Results & Data Vital Signs (Past 12 Hours) Vital Signs Temp Pulse Pulse Resp BP BP Pulse Ox 04/22/23 16:17 37.5 C 91 H 16 143/78 H 92 04/22/23 14:00 38.5 C H 106 H 16 128/77 98 04/22/23 13:12 04/22/23 11:58 39.5 C H 04/22/23 07:19 92 H 15 114/69 96 04/22/23 06:17 112 H 26 H 97 04/22/23 06:00 115 H 35 H 113/70 93 04/22/23 05:33 38.3 C H 04/22/23 05:30 119 H 36 H 165/107 H 04/22/23 05:00 112 H 32 H 153/96 H 93 O2 Del Method O2 Flow Rate FiO2 04/22/23 16:17 Room Air 04/22/23 14:00 Room Air 04/22/23 13:12 Nasal Cannula 4 04/22/23 11:58 04/22/23 07:19 Nasal Cannula 4 04/22/23 06:17 40 04/22/23 06:00 Nasal Cannula 3 04/22/23 05:33 04/22/23 05:30 04/22/23 05:00 Laboratory Results MICROBIOLOGY: 04/21: 4 4 bottles of blood cultures growing Gram-positive cocci in chains 04/22: CSF analysis with 31 nucleated cells (50% mononuclear cells and 50% PMNs), glucose 92, total protein 120.8 04/22: CSF meningitis encephalitis panel negative 04/22: CSF culture pending Diagnostic Findings CT head on 04/22: no acute intracranial abnormalities. (3) Fever Fever type: due to other condition Qualified Code(s): R50.81 - Fever presenting with conditions classified elsewhere
[2023-04-23] MEDS: cefTRIAXone SODIUM 2,000 MG in DEXTROSE 5 % MINI-B 50 ML IV SCH ×2 (00:49→12:22)
[2023-04-23] MEDS: GABAPENTIN 600 MG TAB PO SCH ×3 (02:23→18:26)
[2023-04-23] MEDS: SODIUM CHLORIDE 0.9% 1,000 ML IV SCH ×2 (02:23→08:39)
[2023-04-23 07:47] LABS: BUN Creatinine Ratio 12.3 (10-20); Calcium 7.7 mg/dl (8.6-10.3); Creatinine Clr Calc Pharmacy 96.3 ml/min; Est GFR (African American) 82.3 ml/min; Potassium 3.8 mmol/L (3.5-5.1)
[2023-04-23 07:48] LABS: Hematocrit (blood only) 35.5 % (42.0-52.0); Mean Corpuscular Hemoglobin 30.5 pg (25.0-34.0); Mean Corpuscular Hgb Conc 33.8 g/dL (32.0-36.0); Mean Corpuscular Volume 90.1 fL (80.0-100.0); Mean Platelet Volume 10.3 fL (9.4-12.4); Platelet Count 98 K/uL (130-400); RDW Coefficient of Variation 12.9 % (11.5-14.5); RDW Standard Deviation 42.9 fL (36.4-46.3); Red Blood Count 3.94 M/uL (4.70-6.10); White Blood Count 8.34 K/ul (4.8-10.8)
[2023-04-23 07:55] LABS: Basophils # (auto) 0.06 K/uL (0.00-0.20); Basophils % (auto) 0.7 %; Eosinophils # (auto) 0.01 K/uL (0.00-0.50); Eosinophils % (auto) 0.1 %; Immature Granulocytes # (auto) 0.03 K/uL (0.01-0.20); Immature Granulocytes % (auto) 0.4 %; Lymphocytes # (auto) 1.44 K/uL (1.20-3.40); Lymphocytes % (auto) 17.3 %; Monocytes # (auto) 1.08 K/uL (0.11-0.59); Monocytes % (auto) 12.9 %; Neutrophils # (auto) 5.72 K/uL (1.40-6.50); Neutrophils % (auto) 68.6 %; Platelet Estimate Decreased (Normal)
[2023-04-23] MEDS: ACETAMINOPHEN 1,000 MG/100 ML VIAL IV PRN ×2 (08:38→20:18)
[2023-04-23] MEDS: INSULIN ASPART PER UNIT CHARGE SC SCH ×4 (08:39→20:30)
[2023-04-23] MEDS: THIAMINE HCL 100 MG in SYRINGE 9 ML IV SCH (08:39)
[2023-04-23] MEDS: CEROVITE ADV FORMULA TAB PO SCH (08:39)
[2023-04-23] MEDS: FOLIC ACID 1 MG in SYRINGE 9.8 ML IV SCH (08:39)
[2023-04-23] MEDS: MONTELUKAST SODIUM 10 MG TABLET PO SCH (08:39)
[2023-04-23] MEDS ORDERED: GENTAMICIN CONSULT ACTIVE PRN (11:23)
--- NOTE | 2023-04-23 11:37 | Anesthesiology Consultation ---
Date of Service April 23, 2023 Assessment & Plan (1) Encounter for pre-operative examination: Chart Review Chart Review: Acceptable Risk for Surgery History Height/Weight Height: 6 ft Weight: 121.7 kg Allergies Allergy/AdvReac Type Severity Reaction Status Date / Time No Known Allergies Allergy Unverified 04/21/23 21:41 Medications Home Medications Medication Instructions Recorded Confirmed Last Taken metformin 1,000 mg tablet 1,000 mg PO BID 10/01/20 04/21/23 12/27/20 fexofenadine 60 mg tablet 60 mg PO QAM PRN seasonal allergies 12/28/20 04/21/23 12/28/20 montelukast 10 mg tablet 10 mg PO QAM 04/21/23 04/21/23 Unknown rosuvastatin 20 mg tablet 20 mg PO DAILY 04/21/23 04/21/23 Unknown Active Medications Generic Name Dose Route Start Last Admin Trade Name Freq PRN Reason Stop Dose Admin Gabapentin 600 mg 04/25/23 18:30 04/22/23 13:06 Gabapentin 600 Mg Tab PO 04/25/23 18:31 600 mg Q24H MARK Administration Gabapentin 600 mg 04/23/23 02:30 04/23/23 02:23 Gabapentin 600 Mg Tab PO 04/23/23 18:31 600 mg Q8H MARK Administration Acetaminophen 1,000 mg in 100 mls @ 400 mls/hr 04/22/23 02:17 04/23/23 09:15 Ofirmev IV 04/25/23 02:16 Infused Q8H PRN Infusion Pain or Fever Ceftriaxone Sodium 2,000 mg/ 50 mls @ 100 mls/hr 04/22/23 12:00 04/23/23 01:19 Dextrose IV 05/02/23 11:59 Infused Q12H MARK Infusion Protocol Thiamine HCl 100 mg/ Syringe 10 mls @ 2 mls/min 04/22/23 09:00 04/23/23 08:39 IV 05/22/23 08:59 2 mls/min QAM MARK Administration Folic Acid 1 mg/ Syringe 10 mls @ 5 mls/min 04/22/23 09:00 04/23/23 08:39 IV 05/22/23 08:59 5 mls/min QAM MARK Administration Insulin Aspart 0 units 04/22/23 16:30 04/23/23 08:39 Insulin Aspart Per Unit Charge SC 05/22/23 16:29 Not Given ACHS MARK Montelukast Sodium 10 mg 04/22/23 09:00 04/23/23 08:39 Montelukast Sodium 10 Mg Tablet PO 05/22/23 08:59 10 mg QAM MARK Administration Multivitamins/Minerals 1 tab 04/22/23 09:00 04/23/23 08:39 Cerovite Adv Formula Tab PO 05/22/23 08:59 1 tab QAM MARK Administration Past Medical History Medical History (Updated 04/23/23 @ 11:50 by Dillon Bowie MD) EtOH dependence DORETHA (obstructive sleep apnea) CPAP Non-insulin treated type 2 diabetes mellitus Aseptic meningitis Bacteremia due to group B Streptococcus HLD (hyperlipidemia) Past Surgical History Surgical History No pertinent past surgical history Social History Smoking Status: Unknown if ever smoked Hx Alcohol Use: No Hx Substance Use: No Physical Exam Vital Signs Last Vital Signs Temp 36.6 C 04/23/23 11:16 Pulse 88 04/23/23 11:16 Resp 18 04/23/23 11:16 BP 128/75 04/23/23 11:16 Pulse Ox 95 04/23/23 11:28 O2 Del Method Nasal Cannula 04/23/23 11:28 O2 Flow Rate 2 04/23/23 11:28 FiO2 40 04/22/23 06:17 Testing Laboratory Results 04/23/23 06:29 04/23/23 06:29 PT 12.4 Seconds (9.0-12.0) H 04/21/23 21:00 INR 1.1 (0.9-1.1) 04/21/23 21:00 APTT 25.7 Seconds (21.0-31.0) 04/21/23 21:00 Hemoglobin A1c 8.1 % (4.5-5.6) H 04/22/23 05:03 Urine Color Yellow 04/21/23 23:58 Urine Appearance Clear (Clear) 04/21/23 23:58 Urine pH 7.0 (4.5-7.5) 04/21/23 23:58 Ur Specific [place] 1.016 (1.000-1.030) 04/21/23 23:58 Urine Protein 2+ (Negative) H 04/21/23 23:58 Urine Glucose (UA) Negative (Negative) 04/21/23 23:58 Urine Ketones Trace (Negative) H 04/21/23 23:58 Urine Nitrite Negative (Negative) 04/21/23 23:58 Ur Leukocyte Esterase Negative (Negative) 04/21/23 23:58 Urine WBC (Auto) 1-5 /hpf (0-5) 04/21/23 23:58 Urine RBC (Auto) 10-30 /hpf (0-4) H 04/21/23 23:58 U Hyaline Cast (Auto) 1-5 /lpf (0-5) 04/21/23 23:58 U Epithel Cells (Auto) 5-10 /lpf (0-5) H 04/21/23 23:58 Urine Bacteria (Auto) Negative (Negative) 04/21/23 23:58 04/22/23 11:45 Gram Stain - Final Cerebral Spinal Fluid CSF Culture - Preliminary No growth to date. 04/21/23 21:14 Aerobic Blood Culture - Preliminary Blood Group B Beta Strep Anaerobic Blood Culture - Preliminary Group B Beta Strep 04/21/23 21:00 Aerobic Blood Culture - Preliminary Blood Group B Beta Strep Anaerobic Blood Culture - Preliminary Group B Beta Strep 04/23/23 04/23/23 11:13 07:14 POC Glucose 216 H 107 H Electrocardiogram Date: 04/21/23 Findings: + poor R wave progression (consider ischemia) and + ST @ (122) Echocardiogram Date: 04/23/23 EF: 55-60% LV Function: normal Other Findings: + LVH (mild) Valvular Disease: + no significant valvular disease
[2023-04-23] MEDS: GENTAMICIN SULFATE 100 MG in DEXTROSE 5% 100 ML IV SCH ×2 (12:23→20:18)
--- NOTE | 2023-04-23 12:40 | Pharmacy Report ---
Pharmacy PK ABX Note - Date of Service April 23, 2023 - Assessment and Plan Assessment 04/23: Vancomycin and acyclovir discontinued by ID 04/22. Repeat blood cultures pending. Echocardiogram "There is focal thickening at the base of the posterior mitral valve leaflet. There is a 4mm mobile lesion attached to the base suggestive of vegetation". Transesophageal echocardiogram pending. Gentamicin started for gram positive synergy with ceftriaxone. 04/22: 57 year old M receiving vanomcyin/ceftriaxone/acyclovir for treatment of Strep. agalactiae bacteremia/possible meningitis. Pertinent microbiologic data includes: / blood cultures with gram positive cocci in chains, Strep. agalactiae per culture. LP was performed this morning (post antibiotics) with negative biofire. ID is consulted and has seen the patient awaiting recommendations for possible de-escalation. Patient continues to be febrile with leukocytosis. Plan Gentamicin- gram positive synergy (1mg/kg) * Dosing Weight: adjBW of 95kg used due actual BW >120% ideal BW (77 kg) * Gentamicin 100mg every 8 hours ordered * Goal trough <1mcg/mL * Gentamicin trough ordered for 04/24/23 @ 1130. * Daily serum creatinine ordered Ceftriaxone- continue 2gm Q12H Pharmacy will continue to follow and will adjust dose/frequency as necessary. Thank you. Pharmacy has transitioned to AUC monitoring for vancomycin. AUC/RASHEED is the preferred PK/PD target and is associated with decreased risk of nephrotoxicity compared to traditional trough targets.
--- NOTE | 2023-04-23 12:44 | XRay Report ---
XR chest 1V portable HISTORY: 57 years-old Male Increased O2 requirements acute hypoxia COMPARISON: 04/21/2023 TECHNIQUE: AP view of the chest FINDINGS: Cardiac silhouette is enlarged. Pulmonary vascular congestion with interstitial coarsening. Small ple ural effusions with mild bibasilar densities. Degenerative changes of the shoulders and spine. IMPRESSION: 1. Cardiomegaly with pulmonary edema. 2. Small pleural effusions with mild bibasilar densities favoring atelectasis. ACT 112: Negative or not required by law. The above report was generated using voice recognition software. It may contain grammatical, syntax o r spelling errors. Electronically signed by: Roberto Wright M.D. 04/23/2023 12:43 PM
[2023-04-23] MEDS ORDERED: FUROSEMIDE 40 MG/4 ML VIAL IV ONE ×2 (13:08→15:36)
--- NOTE | 2023-04-23 14:12 | Hospitalist Progress Note ---
Date of Service April 23, 2023 Assessment & Plan (1) Acute confusion: Plan: 57-year-old male with past med significant for type 2 diabetes, history of history of diabetic foot ulcer hyperlipidemia, obstructive sleep apnea on CPAP, chronic rhinitis ,history of herniated nucleus pulposus C6-C7 right side, history of herpes zoster recently quit chewing tobacco per was brought in because of fever and confusion. Associated with headache, aches and pains all over the body, so waiting but denies any nausea vomiting, photophobia or any neck stiffness Suspected to be acute meningitis and is status post LP which remains unremarkable He was started with intravenous acyclovir, vancomycin and ceftriaxone Appreciate ID input and recommendation-we will stop intravenous vancomycin and acyclovir and get an echocardiogram We will continue intravenous ceftriaxone for now and await blood cultures and serology back He has been feeling better but is still having fever and chills No more acute confusion 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 There is for a 4 mm mobile lesion at rest to the base suggestive of vegetation. There is mild mitral regurgitation The case was discussed with ID specialist Gentamicin was added on top of ceftriaxone from today Repeat blood cultures taken GORDON has been ordered to rule out any further vegetations and complication of endocarditis Noted to have desaturation earlier this morning Received intravenous fluid since admission with a positive balance of 8000 mL Chest x-ray did show pulmonary edema IV fluid was stopped and he was given 60 of Lasix intravenously We will monitor (2) Fever: Plan: As above Denies any problem with urine or bowel habit. No cough and no phlegm and shortness of breath CT of the head, chest x-ray and UA are unremarkable IV fluids NS at the rate of 200 mL per hour IV Tylenol as needed Close monitor-as above Diabetes Hold metformin Insulin sliding scale We will monitor blood sugars Hyperlipidemia Started on statin couple of days ago as per we will hold for now. -Sleep apnea CPAP nightly We will follow ABG-is ok Has been saturating normally on room air Hypomagnesia replaced follow labs. Alcoholism Today morning 04/22/23 patient was feeling better and told he drinks 10-15 beers daily. Ordered banana bag, iv thiamine, folic acid and mvi gabapentin alcohol withdrawal protocol with iv ativan prn close monitor. No signs and or symptoms of withdrawal DVT prophylaxis SCDs for now Disposition Telemetry floor Full code Admission and Anticipated Discharge Date Admission Date: April 21, 2023 Subjective 05/02/2023 The patient was seen and examined in telemetry unit He has been feeling better and the confusion is almost gone Still has fever and chills-minimal headache but no neck is stiffness and/or visual symptoms/photophobia no nausea no vomiting 04/23/2023 The patient was seen and examined in telemetry unit He has been feeling much better today but is still having fever and sweating No more confusion Denies any chest pain and/or palpitation Review of Systems Review of Systems: All systems reviewed and are unremarkable except as noted below Physical Exam Physical Exam: Lying in bed comfortably Constitutional: well developed, well nourished, + ill appearing and + obese Eyes: PERRL, conjunctivae normal, anicteric sclerae ENMT: external ear and nose normal, oropharynx normal Neck: trachea midline, no thyromegaly Respiratory: + respiratory distress (Minimal distress at rest) Auscultation: + diminished lung sounds and + crackles (Crackles bibasally) Cardiovascular: Rate/Rhythm: regular rate and regular rhythm; not tachycardic Heart Sounds: normal S1 and normal S2; no murmur Extremities: + edema (Trace edema bilaterally) Gastrointestinal (Abdomen): Inspection/Auscultation: + abdomen distended (Soft) and normal bowel sounds Percussion/Palpation: abdomen soft; abdomen nontender Musculoskeletal: No acute arthritis involving any joint Neurologic: normal touch/pain/proprioception and moves all extremities; no focal motor deficits and not confused Psychiatric: A+Ox3, euthymic affect Lymphatic: no cervical or axillary lymphadenopathy Results & Data Results & Data Vital Signs (Past 12 Hours) Vital Signs Temp Pulse Pulse Resp BP Pulse Ox Pulse Ox 04/23/23 11:28 95 04/23/23 11:16 36.6 C 88 18 128/75 90 04/23/23 08:00 88 04/23/23 08:00 38.5 C H 88 20 131/69 97 O2 Del Method O2 Del Method O2 Flow Rate 04/23/23 11:28 Nasal Cannula 2 04/23/23 11:16 Room Air 04/23/23 08:00 04/23/23 08:00 Room Air Laboratory Results Short CBC 04/23/23 Range/Units 06:29 WBC 8.34 (4.8-10.8) K/ul Hgb 12.0 L (14.0-18.0) g/dl Hct 35.5 L (42.0-52.0) % Plt Count 98 L (130-400) K/uL BMP 04/23/23 06:29 Sodium 136 Potassium 3.8 Chloride 104 Carbon Dioxide 25 BUN 14 Creatinine 1.14 Glucose 107 H Calcium 7.7 L Medications Administered Current Inpatient Medications Dextrose (Dextrose 50% 50 Ml Syringe) 25 - 50 ml IV UD PRN; Protocol PRN Reason: Hypoglycemia Protocol Stop: 05/22/23 02:16 Gabapentin (Gabapentin 600 Mg Tab) 600 mg PO Q24H MARK Stop: 04/25/23 18:31 Last Admin: 04/22/23 13:06 Dose: 600 mg Gabapentin (Gabapentin 600 Mg Tab) 600 mg PO Q12H MARK Stop: 04/24/23 18:31 Gabapentin (Gabapentin 600 Mg Tab) 600 mg PO Q8H MARK Stop: 04/23/23 18:31 Last Admin: 04/23/23 12:22 Dose: 600 mg Glucagon (Glucagon For Inj 1 Mg Vial) 1 mg SQ UD PRN; Protocol PRN Reason: Hypoglycemia Protocol Stop: 05/22/23 02:16 Glucose (Glucose 10 Tab/Tube) 4 - 8 tab PO UD PRN; Protocol PRN Reason: Hypoglycemia Treatment Stop: 05/22/23 02:16 Glucose (Glucose 40% Gel 15 Gm Tube) 15 - 30 gm PO UD PRN; Protocol PRN Reason: Hypoglycemia Protocol Stop: 05/22/23 02:16 Acetaminophen (Ofirmev) 1,000 mg in 100 mls @ 400 mls/hr IV Q8H PRN PRN Reason: Pain or Fever Stop: 04/25/23 02:16 Last Infusion: 04/23/23 09:15 Dose: Infused Ceftriaxone Sodium 2,000 mg/ (Dextrose) 50 mls @ 100 mls/hr IV Q12H MARK; Protocol Stop: 05/02/23 11:59 Last Infusion: 04/23/23 12:55 Dose: Infused Thiamine HCl 100 mg/ Syringe 10 mls @ 2 mls/min IV QAM MARK Stop: 05/22/23 08:59 Last Admin: 04/23/23 08:39 Dose: 2 mls/min Folic Acid 1 mg/ Syringe 10 mls @ 5 mls/min IV QAM [facility] Stop: 05/22/23 08:59 Last Admin: 04/23/23 08:39 Dose: 5 mls/min Lorazepam 1 mg/ Syringe 1 mls @ 2 mls/min IV UD PRN; Protocol PRN Reason: EtOH Withdrawal AWSS Score 6,7 Stop: 05/22/23 06:22 Lorazepam 2 mg/ Syringe 2 mls @ 2 mls/min IV UD PRN; Protocol PRN Reason: EtOH Withdrawal AWSS Score 8,9 Stop: 05/22/23 06:22 Lorazepam 3 mg/ Syringe 3 mls @ 2 mls/min IV ONCE PRN; Protocol PRN Reason: EtOH Withdrawal AWSS Score 10+ Gentamicin Sulfate 100 mg/ (Dextrose) 102.5 mls @ 100 mls/hr IV Q8H [facility]; Protocol Stop: 06/04/23 11:59 Last Infusion: 04/23/23 13:29 Dose: Infused Insulin Aspart (Insulin Aspart Per Unit Charge) 0 units SC ACHS [facility] Stop: 05/22/23 16:29 Last Admin: 04/23/23 12:22 Dose: Not Given Miscellaneous (Carbohydrates For Hypoglycemia ) 15 - 30 gm PO UD PRN PRN Reason: Hypoglycemia Protocol Stop: 05/22/23 02:16 Miscellaneous (Gentamicin Trough) 1 each N/A TODAY@1100 [facility] Stop: 04/24/23 11:01 Miscellaneous Information (Gentamicin Consult Active) 1 each N/A UD PRN PRN Reason: Consult Stop: 05/23/23 11:22 Montelukast Sodium (Montelukast Sodium 10 Mg Tablet) 10 mg PO QAM [facility] Stop: 05/22/23 08:59 Last Admin: 04/23/23 08:39 Dose: 10 mg Multivitamins/Minerals (Cerovite Adv Formula Tab) 1 tab PO QAM [facility] Stop: 05/22/23 08:59 Last Admin: 04/23/23 08:39 Dose: 1 tab Nitroglycerin (Nitroglycerin Sl 0.4 Mg/Tab Tab) 0.4 mg SL Q5M PRN PRN Reason: Chest Pain Stop: 05/22/23 02:16 (2) Fever Fever type: due to other condition Qualified Code(s): R50.81 - Fever presenting with conditions classified elsewhere
[2023-04-23] MEDS ORDERED: ACETAMINOPHEN 1,000 MG/100 ML VIAL IV STA (16:52)
[2023-04-24] MEDS: cefTRIAXone SODIUM 2,000 MG in DEXTROSE 5 % MINI-B 50 ML IV SCH ×2 (00:25→12:19)
[2023-04-24] MEDS: GENTAMICIN SULFATE 100 MG in DEXTROSE 5% 100 ML IV SCH ×3 (04:15→20:26)
[2023-04-24] MEDS: GABAPENTIN 600 MG TAB PO SCH ×2 (06:15→17:51)
[2023-04-24 08:47] LABS: Basophils # (auto) 0.04 K/uL (0.00-0.20); Basophils % (auto) 0.5 %; Eosinophils % (auto) 1.3 %; Hematocrit (blood only) 34.9 % (42.0-52.0); Hemoglobin 11.8 g/dl (14.0-18.0); Immature Granulocytes # (auto) 0.05 K/uL (0.01-0.20); Immature Granulocytes % (auto) 0.7 %; Lymphocytes # (auto) 1.22 K/uL (1.20-3.40); Lymphocytes % (auto) 16.4 %; Mean Corpuscular Hgb Conc 33.8 g/dL (32.0-36.0); Mean Corpuscular Volume 88.8 fL (80.0-100.0); Mean Platelet Volume 10.2 fL (9.4-12.4); Monocytes # (auto) 0.83 K/uL (0.11-0.59); Monocytes % (auto) 11.2 %; Neutrophils # (auto) 5.18 K/uL (1.40-6.50); Neutrophils % (auto) 69.9 %; Platelet Count 104 K/uL (130-400); RDW Coefficient of Variation 12.8 % (11.5-14.5); RDW Standard Deviation 41.9 fL (36.4-46.3); Red Blood Count 3.93 M/uL (4.70-6.10); White Blood Count 7.42 K/ul (4.8-10.8)
[2023-04-24 09:01] LABS: Albumin Level 3.4 gm/dl (3.4-5.0); BUN Creatinine Ratio 13.4 (10-20); Bilirubin,Total 0.8 mg/dl (0.2-1.0); Calcium 8.6 mg/dl (8.6-10.3); Creatinine Clr Calc Pharmacy 113.1 ml/min; Est GFR (Non-African American) 86.3 ml/min; Globulin 3.3 gm/dl (2.5-4.0); Magnesium 1.8 mg/dl (1.7-2.4); Phosphorus 2.6 mg/dl (2.5-4.9); Potassium 3.6 mmol/L (3.5-5.1); Total Protein 6.7 gm/dl (6.0-8.3)
[2023-04-24] MEDS: CEROVITE ADV FORMULA TAB PO SCH (09:16)
[2023-04-24] MEDS: THIAMINE HCL 100 MG in SYRINGE 9 ML IV SCH (09:16)
[2023-04-24] MEDS: FOLIC ACID 1 MG in SYRINGE 9.8 ML IV SCH (09:16)
[2023-04-24] MEDS: MONTELUKAST SODIUM 10 MG TABLET PO SCH (09:16)
[2023-04-24] MEDS: INSULIN ASPART PER UNIT CHARGE SC SCH ×4 (09:17→20:37)
[2023-04-24] MEDS ORDERED: GENTAMICIN TROUGH SCH (11:00)
--- NOTE | 2023-04-24 11:01 | Communication Note ---
Date of Service: April 24, 2023 Patient seen and examined. Informed consent for transesophageal echocardiogram was obtained. Patient's mental status is appropriate. Per review of his chart, discussion with the patient, and discussion with his nurse, his mental status has improved significantly over the last 24 hours. I discussed his case with Dr. Kapadia of the anesthesia service by phone. We will tentatively make him n.p.o. after midnight with plans to perform a transesophageal echocardiogram at 7:30 AM on 04/25/2023 in the postanesthesia care unit.
--- NOTE | 2023-04-24 12:03 | Hospitalist Progress Note ---
Date of Service April 24, 2023 Assessment & Plan (1) Acute confusion: Plan: 57-year-old male with past med significant for type 2 diabetes, history of history of diabetic foot ulcer hyperlipidemia, obstructive sleep apnea on CPAP, chronic rhinitis ,history of herniated nucleus pulposus C6-C7 right side, history of herpes zoster recently quit chewing tobacco per was brought in because of fever and confusion. Associated with headache, aches and pains all over the body, so waiting but denies any nausea vomiting, photophobia or any neck stiffness Suspected to be acute meningitis and is status post LP which remains unremarkable He was started with intravenous acyclovir, vancomycin and ceftriaxone Appreciate ID input and recommendation-we will stop intravenous vancomycin and acyclovir and get an echocardiogram We will continue intravenous ceftriaxone for now and await blood cultures and serology back He has been feeling better but is still having fever and chills No more acute confusion Clinically much better today without any more fever and no chills and the confusion is cleared 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 There is for a 4 mm mobile lesion at rest to the base suggestive of vegetation. There is mild mitral regurgitation The case was discussed with ID specialist Gentamicin was added on top of ceftriaxone from today Repeat blood cultures taken GORDON has been ordered to rule out any further vegetations and complication of endocarditis Repeat blood cultures have been negative so far Clinically much better and will continue current antibiotics Noted to have desaturation earlier this morning Received intravenous fluid since admission with a positive balance of 8000 mL Chest x-ray did show pulmonary edema IV fluid was stopped and he was given 60 of Lasix intravenously We will monitor Again clinically much better and has been saturating normally on room air Chest remains clear on examination (2) Fever: Plan: As above- Denies any problem with urine or bowel habit. No cough and no phlegm and shortness of breath CT of the head, chest x-ray and UA are unremarkable IV fluids NS at the rate of 200 mL per hour IV Tylenol as needed Close monitor-as above Diabetes Hold metformin Insulin sliding scale We will monitor blood sugars Hyperlipidemia Started on statin couple of days ago as per we will hold for now. -Sleep apnea CPAP nightly We will follow ABG-is ok Has been saturating normally on room air Hypomagnesia replaced follow labs. Alcoholism Today morning 04/22/23 patient was feeling better and told he drinks 10-15 beers daily. Ordered banana bag, iv thiamine, folic acid and mvi gabapentin alcohol withdrawal protocol with iv ativan prn close monitor. No signs and or symptoms of withdrawal DVT prophylaxis SCDs for now Disposition Telemetry floor Full code Admission and Anticipated Discharge Date Admission Date: April 21, 2023 Subjective 05/02/2023 The patient was seen and examined in telemetry unit He has been feeling better and the confusion is almost gone Still has fever and chills-minimal headache but no neck is stiffness and/or visual symptoms/photophobia no nausea no vomiting 04/23/2023 The patient was seen and examined in telemetry unit He has been feeling much better today but is still having fever and sweating No more confusion Denies any chest pain and/or palpitation 04/24/2023 The patient was seen and examined in telemetry unit He has been feeling much better today Did not have any more fever and or chills and he has been saturating normally on room air Clinically much better Review of Systems Review of Systems: All systems reviewed and are unremarkable except as noted below Physical Exam Physical Exam: Lying in bed comfortably Constitutional: well developed, well nourished and + obese; not ill appearing Eyes: PERRL, conjunctivae normal, anicteric sclerae ENMT: external ear and nose normal, oropharynx normal Neck: trachea midline, no thyromegaly Respiratory: no respiratory distress (Minimal distress at rest) Auscultation: lungs clear to auscultation bilaterally, + diminished lung sounds and + crackles (Crackles bibasally) Cardiovascular: Rate/Rhythm: regular rate and regular rhythm; not tachycardic Heart Sounds: normal S1 and normal S2; no murmur Extremities: + edema (Trace edema bilaterally) Gastrointestinal (Abdomen): Inspection/Auscultation: + abdomen distended (Soft) and normal bowel sounds Percussion/Palpation: abdomen soft; abdomen nontender Neurologic: normal touch/pain/proprioception and moves all extremities; no focal motor deficits and not confused Psychiatric: A+Ox3, euthymic affect Lymphatic: no cervical or axillary lymphadenopathy Results & Data Results & Data Vital Signs (Past 12 Hours) Vital Signs Temp Pulse Pulse Resp BP Pulse Ox Pulse Ox 04/24/23 11:34 36.9 C 78 18 156/80 H 94 04/24/23 11:00 95 04/24/23 07:43 36.7 C 87 20 165/90 H 90 04/24/23 07:00 67 04/24/23 02:26 36.9 C 68 20 128/73 98 O2 Del Method O2 Del Method O2 Flow Rate 04/24/23 11:34 Room Air 04/24/23 11:00 Room Air 04/24/23 07:43 Nasal Cannula 2 04/24/23 07:00 04/24/23 02:26 CPAP Laboratory Results Short CBC 04/24/23 Range/Units 08:16 WBC 7.42 (4.8-10.8) K/ul Hgb 11.8 L (14.0-18.0) g/dl Hct 34.9 L (42.0-52.0) % Plt Count 104 L (130-400) K/uL BMP 04/24/23 08:16 Sodium 136 Potassium 3.6 Chloride 102 Carbon Dioxide 29 BUN 13 Creatinine 0.97 Glucose 171 H Calcium 8.6 Liver Function 04/24/23 Range/Units 08:16 Total Bilirubin 0.8 (0.2-1.0) mg/dl AST 62 H (13-39) U/L ALT 47 (7-52) U/L Alkaline Phosphatase 45 (34-104) U/L Albumin 3.4 (3.4-5.0) gm/dl Medications Administered Current Inpatient Medications Dextrose (Dextrose 50% 50 Ml Syringe) 25 - 50 ml IV UD PRN; Protocol PRN Reason: Hypoglycemia Protocol Stop: 05/22/23 02:16 Gabapentin (Gabapentin 600 Mg Tab) 600 mg PO Q24H MARK Stop: 04/25/23 18:31 Last Admin: 04/22/23 13:06 Dose: 600 mg Gabapentin (Gabapentin 600 Mg Tab) 600 mg PO Q12H MARK Stop: 04/24/23 18:31 Last Admin: 04/24/23 06:15 Dose: 600 mg Glucagon (Glucagon For Inj 1 Mg Vial) 1 mg SQ UD PRN; Protocol PRN Reason: Hypoglycemia Protocol Stop: 05/22/23 02:16 Glucose (Glucose 10 Tab/Tube) 4 - 8 tab PO UD PRN; Protocol PRN Reason: Hypoglycemia Treatment Stop: 05/22/23 02:16 Glucose (Glucose 40% Gel 15 Gm Tube) 15 - 30 gm PO UD PRN; Protocol PRN Reason: Hypoglycemia Protocol Stop: 05/22/23 02:16 Acetaminophen (Ofirmev) 1,000 mg in 100 mls @ 400 mls/hr IV Q8H PRN PRN Reason: Pain or Fever Stop: 04/25/23 02:16 Last Infusion: 04/23/23 20:33 Dose: Infused Ceftriaxone Sodium 2,000 mg/ (Dextrose) 50 mls @ 100 mls/hr IV Q12H MARK; Protocol Stop: 05/02/23 11:59 Last Infusion: 04/24/23 00:55 Dose: Infused Thiamine HCl 100 mg/ Syringe 10 mls @ 2 mls/min IV QAM [facility] Stop: 05/22/23 08:59 Last Admin: 04/24/23 09:16 Dose: 2 mls/min Folic Acid 1 mg/ Syringe 10 mls @ 5 mls/min IV QAM [facility] Stop: 05/22/23 08:59 Last Admin: 04/24/23 09:16 Dose: 5 mls/min Lorazepam 1 mg/ Syringe 1 mls @ 2 mls/min IV UD PRN; Protocol PRN Reason: EtOH Withdrawal AWSS Score 6,7 Stop: 05/22/23 06:22 Lorazepam 2 mg/ Syringe 2 mls @ 2 mls/min IV UD PRN; Protocol PRN Reason: EtOH Withdrawal AWSS Score 8,9 Stop: 05/22/23 06:22 Lorazepam 3 mg/ Syringe 3 mls @ 2 mls/min IV ONCE PRN; Protocol PRN Reason: EtOH Withdrawal AWSS Score 10+ Gentamicin Sulfate 100 mg/ (Dextrose) 102.5 mls @ 100 mls/hr IV Q8H MARK; Pro tocol Stop: 06/04/23 11:59 Last Infusion: 04/24/23 05:17 Dose: Infused Insulin Aspart (Insulin Aspart Per Unit Charge) 0 units SC ACHS [facility] Stop: 05/22/23 16:29 Last Admin: 04/24/23 09:17 Dose: Not Given Miscellaneous (Carbohydrates For Hypoglycemia ) 15 - 30 gm PO UD PRN PRN Reason: Hypoglycemia Protocol Stop: 05/22/23 02:16 Miscellaneous Information (Gentamicin Consult Active) 1 each N/A UD PRN PRN Reason: Consult Stop: 05/23/23 11:22 Montelukast Sodium (Montelukast Sodium 10 Mg Tablet) 10 mg PO QAM [facility] Stop: 05/22/23 08:59 Last Admin: 04/24/23 09:16 Dose: 10 mg Multivitamins/Minerals (Cerovite Adv Formula Tab) 1 tab PO QAM [facility] Stop: 05/22/23 08:59 Last Admin: 04/24/23 09:16 Dose: 1 tab Nitroglycerin (Nitroglycerin Sl 0.4 Mg/Tab Tab) 0.4 mg SL Q5M PRN PRN Reason: Chest Pain Stop: 05/22/23 02:16 (2) Fever Fever type: due to other condition Qualified Code(s): R50.81 - Fever presenting with conditions classified elsewhere
--- NOTE | 2023-04-24 12:48 | Pharmacy Report ---
Pharmacy PK ABX Note - Date of Service April 24, 2023 - Assessment and Plan Assessment 04/24: Gentamicin trough slightly elevated at 1.29, compared to goal of less than 1 for synergy, but was a 7 hour level instead of an 8 hour level. No change to gentamicin dose for now. Will repeat trough tomorrow. 04/23: Vancomycin and acyclovir discontinued by ID 04/22. Repeat blood cultures pending. Echocardiogram "There is focal thickening at the base of the posterior mitral valve leaflet. There is a 4mm mobile lesion attached to the base suggestive of vegetation". Transesophageal echocardiogram pending. Gentamicin started for gram positive synergy with ceftriaxone. 04/22: 57 year old M receiving vanomcyin/ceftriaxone/acyclovir for treatment of Strep. agalactiae bacteremia/possible meningitis. Pertinent microbiologic data includes: / blood cultures with gram positive cocci in chains, Strep. agalactiae per culture. LP was performed this morning (post antibiotics) with negative biofire. ID is consulted and has seen the patient awaiting recommendations for possible de-escalation. Patient continues to be febrile with leukocytosis. Plan Gentamicin- gram positive synergy (1mg/kg) * Dosing Weight: adjBW of 95kg used due actual BW >120% ideal BW (77 kg) * Gentamicin 100mg every 8 hours ordered * Goal trough <1mcg/mL * Gentamicin trough ordered for 04/25/23 @ 0345. * Daily serum creatinine ordered Ceftriaxone- continue 2gm Q12H Pharmacy will continue to follow and will adjust dose/frequency as necessary. Thank you. Pharmacy has transitioned to AUC monitoring for vancomycin. AUC/RASHEED is the preferred PK/PD target and is associated with decreased risk of nephrotoxicity compared to traditional trough targets.
[2023-04-24 21:22] LABS: Cryptococcal Antigen Not Detected (Not Detected); Source CSF
[2023-04-25] MEDS: cefTRIAXone SODIUM 2,000 MG in DEXTROSE 5 % MINI-B 50 ML IV SCH ×2 (00:35→11:26)
[2023-04-25] MEDS ORDERED: GENTAMICIN TROUGH ONE (03:30)
[2023-04-25 04:27] LABS: Basophils # (auto) 0.07 K/uL (0.00-0.20); Eosinophils # (auto) 0.21 K/uL (0.00-0.50); Eosinophils % (auto) 2.9 %; Hematocrit (blood only) 32.8 % (42.0-52.0); Hemoglobin 11.1 g/dl (14.0-18.0); Immature Granulocytes % (auto) 1.4 %; Lymphocytes # (auto) 1.47 K/uL (1.20-3.40); Lymphocytes % (auto) 20.3 %; Mean Corpuscular Hgb Conc 33.8 g/dL (32.0-36.0); Mean Corpuscular Volume 88.6 fL (80.0-100.0); Mean Platelet Volume 10.7 fL (9.4-12.4); Monocytes # (auto) 0.95 K/uL (0.11-0.59); Monocytes % (auto) 13.1 %; Neutrophils # (auto) 4.43 K/uL (1.40-6.50); Neutrophils % (auto) 61.3 %; Platelet Count 116 K/uL (130-400); RDW Standard Deviation 42.4 fL (36.4-46.3); White Blood Count 7.23 K/ul (4.8-10.8)
[2023-04-25 04:39] LABS: BUN Creatinine Ratio 13.7 (10-20); Calcium 8.7 mg/dl (8.6-10.3); Creatinine Clr Calc Pharmacy 115.5 ml/min; Est GFR (African American) 102.6 ml/min; Est GFR (Non-African American) 88.5 ml/min; Magnesium 1.6 mg/dl (1.7-2.4); Phosphorus 3.9 mg/dl (2.5-4.9); Potassium 3.8 mmol/L (3.5-5.1)
[2023-04-25] MEDS: GENTAMICIN SULFATE 100 MG in DEXTROSE 5% 100 ML IV SCH (05:01)
[2023-04-25] MEDS ORDERED: MAGNESIUM SULFATE / D5W 1 GM/100 ML BAG IV ONE (07:12)
--- NOTE | 2023-04-25 07:13 | History & Physical Bridge Note ---
Date of Service April 25, 2023 History & Physical Bridge Note I have examined the patient, reviewed the History & Physical and in the interval since the performance of the History & Physical I have noted the following changes of clinical significance: no changes noted
[2023-04-25] MEDS ORDERED: BENZOCAINE/TETRACAIN/BUTAM 50 APPLN/5 GM CAN EXT ONE (07:18)
[2023-04-25] MEDS ORDERED: PROPOFOL IV EMULSION 10 MG/ML 20 ML VIAL IV ONE ×2 (07:36→08:39)
--- NOTE | 2023-04-25 08:16 | Post Operative Brief Note ---
Cardiology Brief Post Op Date of Surgery April 25, 2023 Pre & Post Diagnosis Preprocedure diagnosis: Group B beta-hemolytic Streptococcus, evaluate for vegetation Postprocedure diagnosis: No definite vegetation Procedure After informed consent was obtained and a timeout was performed the patient underwent transesophageal echocardiogram. Mild posterior mitral annular calcification was observed without findings of the superimposed vegetation. There is focal calcification of the noncoronary cusp of the aortic valve, without definite vegetation. Bench Molder Chapito Nick DO Commercial Roofing Estimator ALFREDO Summers Estimated Blood Loss 0 Findings Consistent with Post-Op Diagnosis as noted above Anesthesia Type MAC Complications none
--- NOTE | 2023-04-25 08:23 | Cardiology Consultation ---
Date of Consultation April 25, 2023 Assessment & Plan (1) Bacteremia due to group B Streptococcus: -The patient underwent transesophageal echocardiogram this morning performed by the undersigned on 04/25/2023. Findings were notable for mild focal posterior mitral annular calcification without superimposed vegetation. The aortic valve was trileaflet in morphology with focal calcification of the noncoronary cusp of the aortic valve. No definite vegetation was observed. The patient had 2/2 blood cultures that were initially positive on 04/21/2023. Repeat blood cultures on 04/23/2023 while on antibiotic therapy revealed no growth thus far and he has been improving clinically from a fever and mental status standpoint. There is still yet to be a definite source of his streptococcal bacteremia. The transesophageal echocardiogram certainly excludes the presence of underlying surgical valve disease. The presence of a small vegetation cannot be excluded in this clinical picture. Would consider long-term antibiotic therapy appropriate for endocarditis given the clinical presentation. 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 Meadows for the evaluation of sepsis due to group B beta Streptococcus with clinical concerns of endocarditis. The patient had initially presented through the emergency department on 04/21/2023 due to illness with fevers and chills and change in mental status. The patient underwent lumbar puncture. He was found to have bacteremia and has been on appropriate antibiotic care. His mental status has subsequently improved. He had undergone a transthoracic echocardiogram 2 days ago with concerns for abnormality on both the mitral and aortic valves. He was therefore referred for transesophageal echocardiogram which was performed this morning. History is notable for type 2 diabetes mellitus, alcohol dependence, and obstructive sleep apnea. Allergies Allergy/AdvReac Type Severity Reaction Status Date / Time No Known Allergies Allergy Unverified 04/21/23 21:41 Home Medications Medication Instructions Recorded Confirmed Type metformin 1,000 mg tablet 1,000 mg PO BID 10/01/20 04/21/23 History fexofenadine 60 mg tablet 60 mg PO QAM PRN seasonal allergies 12/28/20 04/21/23 History montelukast 10 mg tablet 10 mg PO QAM 04/21/23 04/21/23 History rosuvastatin 20 mg tablet 20 mg PO DAILY 04/21/23 04/21/23 History Patient History Medical History EtOH dependence DORETHA (obstructive sleep apnea) CPAP Non-insulin treated type 2 diabetes mellitus Aseptic meningitis Bacteremia due to group B Streptococcus HLD (hyperlipidemia) Surgical History No pertinent past surgical history Social History Smoking Status: Unknown if ever smoked Hx Alcohol Use: No Hx Substance Use: No Preferred Language: Irish Communication Ability: Effective Trim Attacher Required: No Beliefs That Will Affect Care: Spiritual Current Living Situation: Spouse Feels Safe at Home: Yes Safety Concerns: Feels Safe At This Time Assistive Devices: CPAP Review of Systems Review of Systems: All systems reviewed & are unremarkable except as noted in HPI & below Physical Exam Constitutional: well developed Eyes: PERRL, conjunctivae normal, anicteric sclerae Respiratory: normal respiratory effort, lungs clear to auscultation Cardiovascular: RRR, no murmur, no edema Gastrointestinal (Abdomen): normal bowel sounds, soft, nontender, no hepatosplenomegaly Neurologic: PERRL, EOMI, accommodation nl, no face palsy, no dysarthria Results & Data Vital Signs (Past 12 Hours) Vital Signs Temp Pulse Pulse Resp BP Pulse Ox O2 Del Method 04/25/23 08:11 58 L 14 126/66 97 Nasal Cannula 04/25/23 08:06 63 16 128/69 93 Nasal Cannula 04/25/23 08:06 63 16 93 Nasal Cannula 04/25/23 08:01 64 18 123/66 91 Nasal Cannula 04/25/23 07:57 66 16 132/73 92 Nasal Cannula 04/25/23 07:52 63 18 139/74 94 Nasal Cannula 04/25/23 07:47 66 16 154/79 H 92 Nasal Cannula 04/25/23 07:47 66 16 154/79 H 92 Room Air, Nasal Cannula 04/25/23 07:42 85 16 164/104 H 95 Nasal Cannula 04/25/23 07:42 85 16 164/104 H 95 Nasal Cannula 04/25/23 04:14 37.1 C 64 20 154/81 H 95 CPAP 04/24/23 23:08 36.8 C 71 16 143/83 H 94 Room Air 04/24/23 22:00 72 O2 Flow Rate 04/25/23 08:11 4 04/25/23 08:06 4 04/25/23 08:06 6 04/25/23 08:01 6 04/25/23 07:57 6 04/25/23 07:52 4 04/25/23 07:47 2 04/25/23 07:47 2 04/25/23 07:42 2 04/25/23 07:42 2 04/25/23 04:14 04/24/23 23:08 04/24/23 22:00 Laboratory Results EKG performed on presentation 04/21/2023 revealed sinus tachycardia 122 bpm. Normal MI interval. No significant repolarization changes. Telemetry has since yielded normal sinus rhythm.
--- NOTE | 2023-04-25 08:51 | Anesthesiology Progress Note ---
Date of Service April 25, 2023 Anesthesia Post Procedure Vital Signs Vital Signs: Temp Pulse Pulse Resp BP Pulse Ox Pulse Ox 04/25/23 08:41 36.4 C L 60 18 154/89 H 93 04/25/23 08:26 65 16 153/81 H 95 04/25/23 08:21 65 18 117/82 93 04/25/23 08:16 97 H 18 141/83 H 97 04/25/23 08:16 58 L 14 126/64 97 04/25/23 08:11 58 L 14 126/66 97 04/25/23 08:06 63 16 128/69 93 04/25/23 08:06 63 16 93 04/25/23 08:01 64 18 123/66 91 04/25/23 07:57 66 16 132/73 92 04/25/23 07:52 63 18 139/74 94 04/25/23 07:47 66 16 154/79 H 92 04/25/23 07:47 66 16 154/79 H 92 04/25/23 07:42 85 16 164/104 H 95 04/25/23 07:42 85 16 164/104 H 95 04/25/23 04:14 37.1 C 64 20 154/81 H 95 04/24/23 23:08 36.8 C 71 16 143/83 H 94 04/24/23 22:00 72 04/24/23 20:10 37.3 C 73 18 139/79 93 04/24/23 15:51 36.4 C L 78 20 145/92 H 95 04/24/23 11:34 36.9 C 78 18 156/80 H 94 04/24/23 11:00 95 O2 Del Method O2 Del Method O2 Flow Rate 04/25/23 08:41 Room Air 04/25/23 08:26 Room Air 04/25/23 08:21 Room Air 04/25/23 08:16 Nasal Cannula 2 04/25/23 08:16 Room Air, Nasal Cannula 4 04/25/23 08:11 Nasal Cannula 4 04/25/23 08:06 Nasal Cannula 4 04/25/23 08:06 Nasal Cannula 6 04/25/23 08:01 Nasal Cannula 6 04/25/23 07:57 Nasal Cannula 6 04/25/23 07:52 Nasal Cannula 4 04/25/23 07:47 Nasal Cannula 2 04/25/23 07:47 Room Air, Nasal Cannula 2 04/25/23 07:42 Nasal Cannula 2 04/25/23 07:42 Nasal Cannula 2 04/25/23 04:14 CPAP 04/24/23 23:08 Room Air 04/24/23 22:00 04/24/23 20:10 Room Air 04/24/23 15:51 Room Air 04/24/23 11:34 Room Air 04/24/23 11:00 Room Air Transfer of Care Handoff Completed per policy Notes Mental Status: alert / awake / arousable and participated in evaluation Patient Amnestic to Procedure: Yes Nausea / Vomiting: adequately controlled Pain: adequately controlled Airway Patency, RR, SpO2: stable & adequate BP & HR: stable & adequate Hydration State: stable & adequate Anesthetic Complications: no major complications apparent
[2023-04-25] MEDS: INSULIN ASPART PER UNIT CHARGE SC SCH ×4 (08:58→19:57)
[2023-04-25] MEDS: THIAMINE HCL 100 MG in SYRINGE 9 ML IV SCH (09:02)
[2023-04-25] MEDS: FOLIC ACID 1 MG in SYRINGE 9.8 ML IV SCH (09:02)
[2023-04-25] MEDS: MONTELUKAST SODIUM 10 MG TABLET PO SCH (09:39)
[2023-04-25] MEDS: CEROVITE ADV FORMULA TAB PO SCH (09:39)
--- NOTE | 2023-04-25 09:44 | Pharmacy Report ---
Pharmacy PK ABX Note - Date of Service April 25, 2023 - Assessment and Plan Assessment 04/25: Gentamicin trough remains persistently elevated at 1.21. Dose reduction indicated. Will maintain interval but reduce dose by 20%. However, to ensure that therapeutic effect is still persistent, will also obtain a peak level tomorrow. 04/24: Gentamicin trough slightly elevated at 1.29, compared to goal of less than 1 for synergy, but was a 7 hour level instead of an 8 hour level. No change to gentamicin dose for now. Will repeat trough tomorrow. 04/23: Vancomycin and acyclovir discontinued by ID 04/22. Repeat blood cultures pending. Echocardiogram "There is focal thickening at the base of the posterior mitral valve leaflet. There is a 4mm mobile lesion attached to the base suggestive of vegetation". Transesophageal echocardiogram pending. Gentamicin started for gram positive synergy with ceftriaxone. 04/22: 57 year old M receiving vanomcyin/ceftriaxone/acyclovir for treatment of Strep. agalactiae bacteremia/possible meningitis. Pertinent microbiologic data includes: / blood cultures with gram positive cocci in chains, Strep. agalactiae per culture. LP was performed this morning (post antibiotics) with negative biofire. ID is consulted and has seen the patient awaiting recommendations for possible de-escalation. Patient continues to be febrile with leukocytosis. Plan Gentamicin- gram positive synergy (1mg/kg) * Reduce gentamicin to 80mg every 8 hours * Goal trough <1mcg/mL * Goal peak 3-5 mcg/mL * Gentamicin trough ordered for 04/26 @ 0330 * Gentamicin peak ordered for 04/26 @ 0600 (1 hour after the *end* of the 1 hour infusion due at 0400) * Daily serum creatinine ordered Ceftriaxone- continue 2gm Q12H Pharmacy will continue to follow and will adjust dose/frequency as necessary. Thank you. Pharmacy has transitioned to AUC monitoring for vancomycin. AUC/RASHEED is the preferred PK/PD target and is associated with decreased risk of nephrotoxicity compared to traditional trough targets.
[2023-04-25] MEDS: GENTAMICIN SULFATE 80 MG in DEXTROSE 5% 100 ML IV SCH ×2 (12:48→19:49)
--- NOTE | 2023-04-25 13:57 | Hospitalist Progress Note ---
Date of Service April 25, 2023 Assessment & Plan (1) Acute confusion: Plan: 57-year-old male with past med significant for type 2 diabetes, history of history of diabetic foot ulcer hyperlipidemia, obstructive sleep apnea on CPAP, chronic rhinitis ,history of herniated nucleus pulposus C6-C7 right side, history of herpes zoster recently quit chewing tobacco per was brought in because of fever and confusion. Associated with headache, aches and pains all over the body, so waiting but denies any nausea vomiting, photophobia or any neck stiffness Suspected to be acute meningitis and is status post LP which remains unremarkable He was started with intravenous acyclovir, vancomycin and ceftriaxone Appreciate ID input and recommendation-we will stop intravenous vancomycin and acyclovir and get an echocardiogram We will continue intravenous ceftriaxone for now and await blood cultures and serology back He has been feeling better but is still having fever and chills No more acute confusion Clinically much better today without any more fever and no chills and the confusion is cleared No more fever and or chills Gram-positive bacteremia 2 out of 2 grew group B beta streptococci and 1 out of 2 grew Staph aureus Repeat 2 sets of blood culture are negative GORDON was negative for any endocarditis We will communicate with ID for further input regarding antibiotic 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 There is for a 4 mm mobile lesion at rest to the base suggestive of vegetation. There is mild mitral regurgitation The case was discussed with ID specialist Gentamicin was added on top of ceftriaxone from today Repeat blood cultures taken GORDON has been ordered to rule out any further vegetations and complication of e ndocarditis Repeat blood cultures have been negative so far Clinically much better and will continue current antibiotics Appreciate cardiology consult and finishing GORDON Noted to have desaturation earlier this morning Received intravenous fluid since admission with a positive balance of 8000 mL Chest x-ray did show pulmonary edema IV fluid was stopped and he was given 60 of Lasix intravenously We will monitor Again clinically much better and has been saturating normally on room air Chest remains clear on examination Saturating normally on room air- likely discharge tomorrow (2) Fever: Plan: As above- Denies any problem with urine or bowel habit. No cough and no phlegm and shortness of breath CT of the head, chest x-ray and UA are unremarkable IV fluids NS at the rate of 200 mL per hour IV Tylenol as needed Close monitor-as above Diabetes Hold metformin Insulin sliding scale We will monitor blood sugars Hyperlipidemia Started on statin couple of days ago as per we will hold for now. -Sleep apnea CPAP nightly We will follow ABG-is ok Has been saturating normally on room air Hypomagnesia replaced follow labs. Alcoholism Today morning 04/22/23 patient was feeling better and told he drinks 10-15 beers daily. Ordered banana bag, iv thiamine, folic acid and mvi gabapentin alcohol withdrawal protocol with iv ativan prn close monitor. No signs and or symptoms of withdrawal DVT prophylaxis SCDs for now Disposition Telemetry floor Full code Admission and Anticipated Discharge Date Admission Date: April 21, 2023 Subjective 05/02/2023 The patient was seen and examined in telemetry unit He has been feeling better and the confusion is almost gone Still has fever and chills-minimal headache but no neck is stiffness and/or visual symptoms/photophobia no nausea no vomiting 04/23/2023 The patient was seen and examined in telemetry unit He has been feeling much better today but is still having fever and sweating No more confusion Denies any chest pain and/or palpitation 04/24/2023 The patient was seen and examined in telemetry unit He has been feeling much better today Did not have any more fever and or chills and he has been saturating normally on room air Clinically much better 04/25/2023 The patient was seen and examined in telemetry unit He has been feeling much better today and denies any more fever and or chills Is status post GORDON and that did not show any evidence of endocarditis Review of Systems Review of Systems: All systems reviewed and are unremarkable except as noted below Physical Exam Physical Exam: Lying in bed comfortably Constitutional: well developed, well nourished and + obese; not ill appearing Eyes: PERRL, conjunctivae normal, anicteric sclerae ENMT: external ear and nose normal, oropharynx normal Neck: trachea midline, no thyromegaly Respiratory: no respiratory distress (Minimal distress at rest) Auscultation: lungs clear to auscultation bilaterally, + diminished lung sounds and + crackles (Crackles bibasally) Cardiovascular: Rate/Rhythm: regular rate and regular rhythm; not tachycardic Heart Sounds: normal S1 and normal S2; no murmur Extremities: + edema (Trace edema bilaterally) Gastrointestinal (Abdomen): Inspection/Auscultation: + abdomen distended (Soft) and normal bowel sounds Percussion/Palpation: abdomen soft; abdomen nontender Neurologic: normal touch/pain/proprioception and moves all extremities; no focal motor deficits and not confused Psychiatric: A+Ox3, euthymic affect Lymphatic: no cervical or axillary lymphadenopathy Results & Data Results & Data Vital Signs (Past 12 Hours) Vital Signs Temp Pulse Pulse Resp BP Pulse Ox O2 Del Method 04/25/23 11:59 36.6 C 59 L 18 163/75 H 95 Room Air 04/25/23 09:37 36.7 C 60 18 167/79 H 94 Room Air 04/25/23 09:08 36.9 C 63 18 153/90 H 93 Room Air 04/25/23 08:41 36.4 C L 60 18 154/89 H 93 Room Air 04/25/23 08:26 65 16 153/81 H 95 Room Air 04/25/23 08:21 65 18 117/82 93 Room Air 04/25/23 08:16 97 H 18 141/83 H 97 Nasal Cannula 04/25/23 08:16 58 L 14 126/64 97 Room Air, Nasal Cannula 04/25/23 08:11 58 L 14 126/66 97 Nasal Cannula 04/25/23 08:06 63 16 128/69 93 Nasal Cannula 04/25/23 08:06 63 16 93 Nasal Cannula 04/25/23 08:01 64 18 123/66 91 Nasal Cannula 04/25/23 08:00 62 04/25/23 07:57 66 16 132/73 92 Nasal Cannula 04/25/23 07:52 63 18 139/74 94 Nasal Cannula 04/25/23 07:47 66 16 154/79 H 92 Nasal Cannula 04/25/23 07:47 66 16 154/79 H 92 Room Air, Nasal Cannula 04/25/23 07:42 85 16 164/104 H 95 Nasal Cannula 04/25/23 07:42 85 16 164/104 H 95 Nasal Cannula 04/25/23 04:14 37.1 C 64 20 154/81 H 95 CPAP O2 Flow Rate 04/25/23 11:59 11/12/23 09:37 04/25/23 09:08 04/25/23 08:41 04/25/23 08:26 04/25/23 08:21 04/25/23 08:16 2 04/25/23 08:16 4 04/25/23 08:11 4 04/25/23 08:06 4 04/25/23 08:06 6 04/25/23 08:01 6 04/25/23 08:00 04/25/23 07:57 6 04/25/23 07:52 4 04/25/23 07:47 2 04/25/23 07:47 2 04/25/23 07:42 2 04/25/23 07:42 2 04/25/23 04:14 Laboratory Results Short CBC 04/25/23 Range/Units 04:04 WBC 7.23 (4.8-10.8) K/ul Hgb 11.1 L (14.0-18.0) g/dl Hct 32.8 L (42.0-52.0) % Plt Count 116 L (130-400) K/uL [facility] 04/25/23 04:04 Sodium 136 Potassium 3.8 Chloride 103 Carbon Dioxide 27 BUN 13 Creatinine 0.95 Glucose 167 H Calcium 8.7 Medications Administered Current Inpatient Medications Dextrose (Dextrose 50% 50 Ml Syringe) 25 - 50 ml IV UD PRN; Protocol PRN Reason: Hypoglycemia Protocol Stop: 05/22/23 02:16 Gabapentin (Gabapentin 600 Mg Tab) 600 mg PO Q24H MARK Stop: 04/25/23 18:31 Last Admin: 04/22/23 13:06 Dose: 600 mg Glucagon (Glucagon For Inj 1 Mg Vial) 1 mg SQ UD PRN; Protocol PRN Reason: Hypoglycemia Protocol Stop: 05/22/23 02:16 Glucose (Glucose 10 Tab/Tube) 4 - 8 tab PO UD PRN; Protocol PRN Reason: Hypoglycemia Treatment Stop: 05/22/23 02:16 Glucose (Glucose 40% Gel 15 Gm Tube) 15 - 30 gm PO UD PRN; Protocol PRN Reason: Hypoglycemia Protocol Stop: 05/22/23 02:16 Ceftriaxone Sodium 2,000 mg/ (Dextrose) 50 mls @ 100 mls/hr IV Q12H MARK; Protocol Stop: 05/02/23 11:59 Last Infusion: 04/25/23 12:08 Dose: Infused Thiamine HCl 100 mg/ Syringe 10 mls @ 2 mls/min IV QAM [facility] Stop: 05/22/23 08:59 Last Admin: 04/25/23 09:02 Dose: 2 mls/min Folic Acid 1 mg/ Syringe 10 mls @ 5 mls/min IV QAM [facility] Stop: 05/22/23 08:59 Last Admin: 04/25/23 09:02 Dose: 5 mls/min Lorazepam 1 mg/ Syringe 1 mls @ 2 mls/min IV UD PRN; Protocol PRN Reason: EtOH Withdrawal AWSS Score 6,7 Stop: 05/22/23 06:22 Lorazepam 2 mg/ Syringe 2 mls @ 2 mls/min IV UD PRN; Protocol PRN Reason: EtOH Withdrawal AWSS Score 8,9 Stop: 05/22/23 06:22 Lorazepam 3 mg/ Syringe 3 mls @ 2 mls/min IV ONCE PRN; Protocol PRN Reason: EtOH Withdrawal AWSS Score 10+ Gentamicin Sulfate 80 mg/ (Dextrose) 102 mls @ 100 mls/hr IV Q8H [facility] Stop: 06/06/23 11:59 Last Admin: 04/25/23 12:48 Dose: 100 mls/hr Insulin Aspart (Insulin Aspart Per Unit Charge) 0 units SC ACHS [facility] Stop: 05/22/23 16:29 Last Admin: 04/25/23 12:12 Dose: 3 units Miscellaneous (Carbohydrates For Hypoglycemia ) 15 - 30 gm PO UD PRN PRN Reason: Hypoglycemia Protocol Stop: 05/22/23 02:16 Miscellaneous (Gentamicin Peak) 1 each N/A TODAY@0400 ONE Stop: 04/26/23 04:01 Miscellaneous (Gentamicin Trough) 1 each N/A TODAY@0330 ONE Stop: 04/26/23 03:31 Miscellaneous Information (Gentamicin Consult Active) 1 each N/A UD PRN PRN Reason: Consult Stop: 05/23/23 11:22 Montelukast Sodium (Montelukast Sodium 10 Mg Tablet) 10 mg PO QAM [facility] Stop: 05/22/23 08:59 Last Admin: 04/25/23 09:39 Dose: 10 mg Multivitamins/Minerals (Cerovite Adv Formula Tab) [facility] Stop: 05/22/23 08:59 Last Admin: 04/25/23 09:39 Dose: 1 tab Nitroglycerin (Nitroglycerin Sl 0.4 Mg/Tab Tab) 0.4 mg SL Q5M PRN PRN Reason: Chest Pain Stop: 05/22/23 02:16 (2) Fever Fever type: due to other condition Qualified Code(s): R50.81 - Fever presenting with conditions classified elsewhere
[2023-04-25] MEDS: GABAPENTIN 600 MG TAB PO SCH (18:32)
[2023-04-26] MEDS: cefTRIAXone SODIUM 2,000 MG in DEXTROSE 5 % MINI-B 50 ML IV SCH ×2 (01:00→12:12)
--- OUTSIDE RECORDS SUMMARY | 2023-04-26 01:23 | External Medical Summary | Summary of Care ---
Author Name Unknown Organization [facility] Address [address] [place] [address] Phone [phone] Care Team Providers Care Fly Setter Name Role Phone Erickson Freeman MD Primary Care Provider [phone] Encounter Details Date Type Department Care Team Description 01/21/2023 Refill [facility] [address] [place] [address] Erickson Freeman MD [address] [place] [address] Chronic rhinitis Allergies Active Allergy Reactions Severity Noted Date Comments Empagliflozin 10/04/2018 Recurrent yeast documented as of this encounter (statuses as of 01/21/2023) Medications Medication Sig Dispensed Refills Start Date End Date Status ECOTRIN LOW STRENGTH 81 MG PO TBECIndications:R outine medical exam One pill by mouth once a day 0 03/16/2014 Active FEXOFENADINE HCL 180 MG PO TABSIndications:C hronic rhinitis One pill by mouth once a day as needed for allergies 30 Tab 11 03/16/2014 Active Blood Glucose Monitoring Suppl (ONETOUCH VERIO) W/DEVICE KITIndications:Ty pe 2 diabetes, HbA1c goal < 7% (HCC) Use as directed. DX:E11.9 Use to check blood sugars one to two times daily. 1 Kit 0 06/24/2016 Active ONETOUCH LANCETS MISCIndications:T ype 2 diabetes, HbA1c goal < 7% (HCC) DX: E11.9 Use to check blood sugars one to two times daily. 1 Box Dosing Unit 11 06/24/2016 Active FabricioToannmarie Verdamaris In Vitro Strip (Glucose Blood)Indications :Type 2 diabetes, HbA1c goal < 7% ([facility]) Use to check blood sugars one to two times daily. 300 Strip 3 05/23/2020 Active Tacrolimus 0.1 % External Ointment (Protopic) Apply topically to affected area 2 times a day. Apply to facial rash 2x daily when itchy/bothersom e until resolved, then when flaring 60 g 2 04/16/2021 Active Cephalexin 500 MG Oral Capsule (Keflex)Indicatio ns:Contact dermatitis, unspecified contact dermatitis type, unspecified trigger Take 1pill 3x daily for 10 days (with or without food) 30 Capsule 0 12/08/2021 Active metFORMIN HCl 1000 MG Oral Tablet (Glucophage)Indic ations:Type 2 diabetes, HbA1c goal < 7% ([facility]),Noncomplian ce with medication regimen TAKE 1 TABLET BY MOUTH TWICE A DAY WITH BREAKFAST AND DINNER 180 Tablet 3 07/21/2022 Active Montelukast Sodium 10 MG Oral Tablet (Singulair)Indica tions:Acute sinusitis, recurrence not specified, unspecified location TAKE 1 TABLET BY MOUTH EVERY DAY IN THE MORNING 90 Tablet 0 12/07/2022 Active Sildenafil Citrate 20 MG Oral Tablet (Revatio)Indicati ons:Erectile dysfunction, unspecified erectile dysfunction type TAKE 2 AND 1/2 TO 5 TABLETS BY MOUTH NEEDED FOR ERECTILE DYSFUNCTION. Strength: 20 mg 150 Tablet 0 01/01/2023 Active Fluticasone Propionate 50 MCG/ACT Nasal Suspension (Flonase)Indicati ons:Chronic rhinitis SPRAY 2 SPRAYS INTO EACH NOSTRIL EVERY DAY Strength: 50 MCG/ACT 48 mL 1 01/21/2023 Active Fluticasone Propionate 50 MCG/ACT Nasal Suspension (Flonase)Indicati ons:Chronic rhinitis SPRAY 2 SPRAYS INTO EACH NOSTRIL EVERY DAY Strength: 50 MCG/ACT 16 mL 5 09/04/2022 3 Discontinue d(Refill) documented as of this encounter (statuses as of 01/21/2023) Active Problems Problem Noted Date Erectile dysfunction 07/07/2017 Dyslipidemia, goal LDL below 70 03/26/20 17 Type 2 diabetes, HbA1c goal < 7% 017 Chews tobacco 10/12/2013 Obstructive sleep apnea on CPAP 03/24/20 12 Overview: 06/2014 -- [facility] CPAP 13 cwp 2006 PSG -- severe DORETHA with hypoxemia [facility] Chronic rhinitis 03/24/2012 Herpes zoster 04/04/2007 Herniated nucleus pulposus, C6-7 right 0 2003 documented as of this encounter (statuses as of 01/21/2023) Resolved Problems Problem Noted Date Resolved Date Severe obesity with body mas s index (BMI) of 35.0 to 39.9 with serious comorbidity 03/26/2017 09/03/2020 Overview: bmi= 35.29 03/26/17 ICD-10 update of inactive diagnosis Alcohol ingestion, 1-4 drinks per day 05/18/2016 06/23/2018 Body mass index 35.0-35.9, adult 10/01/2015 03/03/2017 Overview: bmi= 35.26 10/01/15 Viral URI with cough 08/12/2015 03/03/2017 Myalgia and myositis 08/12/2015 03/03/2017 Hyperglycemia 03/26/2014 03/03/2017 Obesity, Class II, BMI 35-39.9, isolated (see ac tual BMI) 10/12/2013 03/03/2017 Overview: bmi= 35.40 10/12/13 Screening for cardiovascular condition 4 03/03/2017 Screening for diabetes mellitus 10/12/2013 03/03/2017 Obesity, Class I, BMI 30.0-34.9 (see actual BMI) 03/24/2012 03/03/2017 Overview: bmi= 34.86 03/24/12 Dysfunction of eustachian tube 03/24/2012 0 03/03/2017 Chronic sinusitis 03/24/2012 03/03/2017 Cough 03/24/2012 03/16/2014 Obesity, Class I, BMI 30.0-34.9 (see actual BMI) 07/02/2011 03/03/2017 Overview: BMI= 34.99 07/02/11 ADVANCE DIRECTIVE INFORMATION 05/04/2011 Overview: No, Advance Directive brochure offered , patient declined. OBESITY, BMI= 34.94 02/21/10 02/21/201002/13 HISTORY OF TOBACCO USE-ORAL QUIT 11/2002/21/2010 03/16/2014 Elevated blood pressure, situational 01/28/2010 03/16/2014 Dermatitis due to plant 01/09/2010 03/16/20 14 Fertility testing 12/02/2009 03/16/2014 OVERWEIGHT, BMI= 30.68 06/27/08 06/27/2008 0 03/03/2017 High-risk sexual behavior 06/27/20082013 TOBACCO USE DISORDER-ORAL 10/15/20042009 OVERWEIGHT 10/15/2004 03/16/2014 Cervical root lesions, not elsewhere classified 2003 06/27/2008 ALCOHOL USE-CONTINUOUS 2003 4 ROUTINE MEDICAL EXAM 2003 03/16/2014 OBESITY, UNSPECIFIED 2003 10/15/2004 Dyslipidemia, goal to be determined 01/28/2010 Abnormal blood chemistry 010 Dyslipidemia, goal LDL below 100 03/16/2014 Allergic rhinitis 03/03/2017 documented as of this encounter (statuses as of 01/21/2023) Immunizations Name Administration Dates Next Due Seasonal Influenza, Quadriva lent, No Preserve, 6 Mons & Above, IM 04/03/2019,05/25/2018,03/26/2017 Seasonal Influenza, Quadriva lent, No Preserve, IM 05/18/2016 05/18/2017 Seasonal Influenza, Split, I IV3, With Preserve, Inj 03/16/2014 03/16/2015 TD, Preservative Free 03/26/2017 TDAP (age 11 and older)(Adacel) 09/16/2006 documented as of this encounter Social History Tobacco Use Types Packs/Day Years Used Date Smoking Tobacco: Never Smokeless Tobacco: Current Snuff Comments:3 cans per week Alcohol Use Standard Drinks/Week Comments Yes 0 (1 standard drink = 0.6 oz pur e alcohol) 8-10 per day Food Insecurity Answer Date Recorded Within the past 12 months, y ou worried that your food would run out before you got money to buy more. Never true 09/01/2020 Within the past 12 months, t he food you bought just didn't last and you didn't have money to get more. Never true 09/01/2020 Sex Assigned at Date Recorded Not on file Job Start Date Occupation Industry Not on file Not on file Not on file documented as of this encounter Miscellaneous Notes * Telephone Encounter - Erickson Freeman MD - 01/21/2023 4:22 PM EDTSigned Prescriptions: Disp Refills Fluticasone Propionate 50 MCG/ACT Nasal White*48 mL 1 Sig: SPRAY 2 SPRAYS INTO EACH NOSTRIL EVERY DAY Strength: 50 MCG/ACTAuthorizing Provider: ERICKSON FREEMAN----- documented in this encounter Plan of Treatment Scheduled Procedures Name Priority Associated Diagnoses Date/Ti me COLONOSCOPY FLEXIBLE PROXIMA L DIAGNOSTIC Recall History of colonic polyps Health Maintenance Due Date Last Done Comments Hepatitis B (1 of 3 - 3-dose series) 1965 COVID-19 Vaccine (#1) 1970 Pneumococcal Vaccine: Pediatrics (0 to 5 Years) and At-Risk Patients (6 to 64 Years) (1 - PCV) 1971 DIABETES-EYE EXAM 1983 Hepatitis C Screening 1983 Zoster Vaccines (1 of 2) 1984 Depression Screening, Annual for Pts 12 and Over 04/30/2021 04/30/2020, 03/26/2017 (Discussed) DIABETES-FOOT EXAM 01/08/2022 01/08/2021, 0 08/15/2018, 10/20/2017, Additional history exists B-12 06/25/2022 06/25/2021 HbA1c 10/28/2022 04/30/2022, 04/14, 06/25/2021, Additional history exists Influenza Vaccine (FLU shot) (#1) 2023 04/03/2019, 05/25/2018, 03/26/2017, Additional history exists Albumin/Creatinine Ratio 04/30/2023 022, 06/25/2021, 06/25/2021, Additional history exists GFR 04/30/2023 04/30/2022, 09/13, 05/13/2020, Additional history exists COLONOSCOPY-EVERY 3 YRS AGES 18-100 12/05/2024 12/05/2021, 12/05/2021, 07/09/2017, Additional history exists DTaP,Tdap,and Td Vaccines (3 - Td or Tdap) 03/26/2027 03/26/2017, 09/16/2006 Lipid Panel 04/30/2027 04/30/2022, 04/14, 06/25/2021, Additional history exists GARDASIL-HPV IMMUNIZATION SERIES Aged Out No longer eligible based on patient's age to complete this topic MENINGOCOCCAL (MENACTRA/MENVEO) Aged Out No longer eligible based on patient's age to complete this topic documented as of this encounter Medical Devices Not on filedocumented as of this encounter Visit Diagnoses Diagnosis Chronic rhinitis documented in this encounter Care Teams Fly Setter Relationship Specialty Start Date End Date Erickson Freeman MD [address], [place] [id number] PCP - General Family Medicine 10/04/18 documented as of this encounter
--- OUTSIDE RECORDS SUMMARY | 2023-04-26 01:23 | External Medical Summary | Summary of Care ---
Author Name Unknown Organization [facility] Address [address] [place] [address] Phone [phone] Care Team Providers Care Fire Patroller Name Role Phone Erickson Yoon MD Primary Care Provider [phone]- [phone] Reason for Visit * Reason Comments Acute Cut on the bottom of right great toe, not healing-approx 6 weeks ago Encounter Details Date Type Department Care Team Description 03/19/2023 Office Visit [facility] [address] [place] [address] OctoberVictor Manuel MD [address] [place] [address] Dyslipidemia, goal LDL below 70*; Type 2 diabetes, HbA1c goal < 7% (HCC); Diabetic ulcer of toe of right foot associated with type 2 diabetes mellitus, limited to breakdown of skin (HCC) Allergies Active Allergy Reactions Severity Noted Date Comments Empagliflozin 10/04/2018 Recurrent yeast documented as of this encounter (statuses as of 03/19/2023) Medications Medication Sig Dispensed Refills Start Date End Date Status ECOTRIN LOW STRENGTH 81 MG PO TBECIndications:R outine medical exam Take by mouth. 0 03/16/2014 Active FEXOFENADINE HCL 180 MG PO TABSIndications:C hronic rhinitis One pill by mouth once a day as needed for allergies 30 Tab 11 03/16/2014 Active Blood Glucose Monitoring Suppl ([employer] VERIO) W/DEVICE KITIndications:Ty pe 2 diabetes, HbA1c goal < 7% (HCC) Use as directed. DX:E11.9 Use to check blood sugars one to two times daily. 1 Kit 0 06/24/2016 Active ONETOUCH LANCETS MISCIndications:T ype 2 diabetes, HbA1c goal < 7% (HCC) DX: E11.9 Use to check blood sugars one to two times daily. 1 Box Dosing Unit 11 06/24/2016 Active OneTouch Verio In Vitro Strip (Glucose Blood)Indications :Type 2 diabetes, HbA1c goal < 7% (HCC) Use to check blood sugars one to two times daily. 300 Strip 3 05/23/2020 Active Tacrolimus 0.1 % External Ointment (Protopic) Apply topically to affected area 2 times a day. Apply to facial rash 2x daily when itchy/botherso me until resolved, then when flaring 60 g 2 04/16/2021 Active metFORMIN HCl 1000 MG Oral Tablet (Glucophage)Indic ations:Type 2 diabetes, HbA1c goal < 7% (HCC),Noncomplian ce with medication regimen TAKE 1 TABLET [...] 50 MCG/ACT 48 mL 1 01/21/2023 Active Cephalexin 500 MG Oral Capsule (Keflex)Indicatio ns:Contact dermatitis, unspecified contact dermatitis type, unspecified trigger Take 1pill 3x daily for 10 days (with or without food) 30 Capsule 0 12/08/2021 3 Discontinued documented as of this encounter (statuses as of 03/19/2023) Active Problems Problem Noted Date Diabetic ulcer of toe of rig ht foot associated with type 2 diabetes mellitus, limited to breakdown of skin 03/19/2023 Erectile dysfunction 07/07/2017 Dyslipidemia, goal LDL below 70 03/26/20 Type 2 diabetes, HbA1c goal < 7% 017 Chews tobacco 10/12/2013 Obstructive sleep apnea on CPAP 03/24/20 Overview: 06/2014 -- ResMed CPAP 13 cwp 2006 PSG -- severe DORETHA with hypoxemia [facility] Chronic rhinitis 03/24/2012 Herpes zoster 04/04/2007 Herniated nucleus pulposus, C6-7 right 0 2003 documented as of this encounter (statuses as of 03/19/2023) Resolved Problems Problem Noted Date Resolved Date [...] 03/16/2014 Dermatitis due to plant 01/09/2010 03/16/20 Fertility testing 12/02/2009 03/16/2014 OVERWEIGHT, BMI= 30.68 [...] as of this encounter (statuses as of 03/19/2023) Immunizations Name Administration Dates Next Due SEASONAL INFLUENZA, PF, 6 M & Above, IM , (FLULAVAL or FLUZONE) 04/03/2019,05/25/2018,03/26/2017 Seasonal Influenza, Quadriva lent, No Preserve, IM 05/18/2016 05/18/2017 Seasonal Influenza, Split, I IV3, With Preserve, Inj 03/16/2014 03/16/2015 TD, Preservative Free 03/26/2017 TDAP (age 11 and older)(Adacel) 09/16/2006 documented as of this encounter Social History Tobacco Use Types Packs/Day Years Used Date Smoking Tobacco: Never Smokeless Tobacco: Former Snuff Tobacco Cessation:Counseling Given: Not Answered Comments:3 cans per week Alcohol Use Standard Drinks/Week Comments Yes 0 (1 standard drink = 0.6 oz pur e alcohol) 8-10 per day Food Insecurity Answer Date Recorded Within the past 12 months, y ou worried that your food would run out before you got money to buy more. Never true 03/18/2023 Within the past 12 months, t he food you bought just didn't last and you didn't have money to get more. Never true 03/18/2023 Sex Assigned at Date Recorded Male 03/18/2023 1:07 PM EDT Job Start Date Occupation Industry Not on file Not on file Not on file documented as of this encounter Last Filed Vital Signs Vital Sign Reading Time Taken Comments Blood Pressure 122/80 03/19/2023 9:08 AM EDT Pulse 84 03/19/2023 9:08 AM EDT Temperature 36.5 C (97.7 F) 03/19/2023 9:08 AM ED T Respiratory Rate 16 03/19/2023 9:08 AM EDT Oxygen Saturation - - Inhaled Oxygen Concentration - - Weight 117 kg (258 lb) 03/19/2023 9:08 AM EDT Height 182.9 cm (6') 03/19/2023 9:08 AM EDT Body Mass Index 34.99 03/19/2023 9:08 AM EDT documented in this encounter Progress Notes * Victor Manuel Sharp MD - 03/19/2023 9:17 AM EDT Images from the original note were not included. Assessment and Plan Stage I diabetic foot ulcer on the right great toe. Hydrogel and proper footwear over the next 2-3 weeks. If not seeing improvement recommend patient notify the office and we refer to podiatry. Due for repeat lab work as below. Diabetic foot exam completed in office today. Continue metformin for type 2 diabetes. 1. Type 2 diabetes, HbA1c goal < 7% (HCC) - HEMOGLOBIN A1C; Future - LIPID PANEL WITH DIRECT LDL IF TG IS HIGH; Future - COMPREHENSIVE METABOLIC PANEL; Future - DIABETES FOOT EXAM 2. Diabetic ulcer of toe of right foot associated with type 2 diabetes mellitus, limited to breakdown of skin (HCC) 3. Dyslipidemia, goal LDL below 70 Wrap-Up Follow up in 6 months for physical with PCP. History of Present Illness The patient is a 57-year-old male with past medical history of type 2 diabetes with most recent A1c6.8, dyslipidemia, DORETHA on CPAP, ED who presents for sick visit. Patient presents for sick visit. He notes a cut on the plantar aspect of the right great toe present for a proximally 6 weeks. Unsure if there was a cause of this as he thinks it may have happened when he was on a camping trip and drinking alcohol. Notes this has not changed in appearance better orworse. He does have a history of type 2 diabetes currently taking metformin. Last A1c in 2021 was 6.8. No fevers, chills, other signs of systemic infection. There is no pain. There is no surrounding erythema or warmth. Physical Exam Vitals: 03/19/23 0908 Temp: 36.5 C (97.7 F) Pulse: 84 Resp: 16 BP: 122/80 BMI: 34.98 Physical Exam Physical Exam Vitals reviewed. Constitutional: General: He is not in acute distress. Pulmonary: Effort: Pulmonary effort is normal. No respiratory distress. Skin: Comments: Stage I diabetic ulcer on the plantar aspect of the right great toe. No surrounding erythema or warmth. Neurological: Mental Status: He is alert. Foot Exam: Pulses palpable Sensory intact Skin with evidence of ulcerations on plantar aspect of right great toe Toenails with evidence of onchomycosis documented in this encounter Nursing Notes * Corina Beltran LPN - 03/19/2023 9:11 AM EDT The patient has been properly identified by confirmation of name and date of . Chief Complaint Patient presents with Acute Cut on the bottom of right great toe, not healing-approx 6 weeks ago documented in this encounter Plan of Treatment Scheduled Orders Name Type Priority Associated Diagnoses Orde r Schedule HEMOGLOBIN A1C Lab Routine Type 2 diabetes, HbA1c goal < 7% (HCC) Expected: 03/19/2023 (Approximate), Expires: 03/18/2024 LIPID PANEL WITH DIRECT LDL IF TG IS HIGH Lab Routine Type 2 diabetes, HbA1c goal < 7% (HCC) Expected: 03/19/2023, Expires: 03/19/2024 COMPREHENSIVE METABOLIC PANEL Lab Routine Type 2 diabetes, HbA1c goal < 7% (HCC) Expected: 03/19/2023 (Approximate), Expires: 03/18/2024 Scheduled Procedures Name Priority Associated Diagnoses Date/Ti [...] Zoster Vaccines (1 of 2) 1984 Depression Screening 04/30/2021 04/30/2020, 03/26/2017 (Discussed) B-12 06/25/2022 06/25/2021 HbA1c 10/28/2022 04/30/2022, 04/14, 06/25/2021, Additional history exists Influenza Vaccine (FLU shot) (#1) 2023 04/03/2019, 05/25/2018, 03/26/2017, Additional history exists Albumin/Creatinine Ratio 04/30/2023 022, 06/25/2021, 06/25/2021, Additional history exists GFR 04/30/2023 04/30/2022, 04/2 07/2020, 05/13/2020, Additional history exists Diabetic Foot Exam 03/19/2024 03/19/2023, 0 01/08/2021, 08/15/2018, Additional history exists COLONOSCOPY-EVERY 3 YRS AGES [...] as of this encounter Visit Diagnoses Diagnosis Dyslipidemia, goal LDL below 70- Primary Other and unspecified hyperlipidemia Type 2 diabetes, HbA1c goal < 7% (HCC) Type II or unspecified type diabetes mellitus without mention of complication, not stated as uncontrolled Diabetic ulcer of toe of right foot associated with type 2 diabetes mellitus, limited to breakdown of skin (HCC) documented in this encounter Care Teams Fire Patroller Relationship Specialty Start Date End Date Erickson Yoon MD [address] [place] [address] PCP - General Family Medicine 10/04/18 documented as of this encounter
--- OUTSIDE RECORDS SUMMARY | 2023-04-26 01:23 | External Medical Summary | Summary of Care ---
Author Name Unknown Organization [facility] Address [address] [place] [address] Phone [phone] Care Team Providers Care Associate Director Data & Analytics Name Role Phone Erickson Yoon MD Primary Care Provider [phone]- [phone] Reason for Visit * Reason Comments Acute Medications for diab etes Encounter Details Date Type Department Care Team (Latest Contact Info) Description 04/13/2023 11:40 AM EDT Office Visit [facility] [address] [place] [address] OctoberVictor Manuel MD [address] [place] [address] Type 2 diabetes, HbA1c goal < 7% (HCC)*; Hyperlipidemia, unspecified hyperlipidemia type; Chews tobacco Allergies Active Allergy Reactions Criticality Noted Date Comments Empagliflozin 10/04/2018 Recurrent yeast documented as of this encounter (statuses as of 04/13/2023) Medications Medication Sig Dispensed Refills Start Date End Date Status ECOTRIN LOW STRENGTH 81 MG PO TBECIndications:Rout ine medical exam Take by mouth. 0 03/16/2014 Acti ve FEXOFENADINE HCL 180 MG PO TABSIndications:Skinning Machine Feeder siria rhinitis One pill by mouth once a day as needed for allergies 30 Tab 11 03/16/2014 Active Blood Glucose Monitoring Suppl ([employer] VERIO) W/DEVICE KITIndications:Type 2 diabetes, HbA1c goal < 7% (HCC) Use as directed. DX:E11.9 Use to check blood sugars one to two times daily. 1 Kit 0 06/24/2016 Active ONETOUCH LANCETS MISCIndications:Type 2 diabetes, HbA1c goal < 7% (HCC) DX: E11.9 Use to check blood sugars one to two times daily. 1 Box Dosing Unit 11 06/24/2016 Active OneTouch Verio In Vitro Strip (Glucose Blood)Indications:Ty pe 2 diabetes, HbA1c goal < 7% (HCC) Use to check blood sugars one to two times daily. 300 Strip 3 05/23/2020 Active Tacrolimus 0.1 % External Ointment (Protopic) Apply topically to affected area 2 times a day. Apply to facial rash 2x daily when itchy/bothersom e until resolved, then when flaring 60 g 2 04/16/2021 Active metFORMIN HCl 1000 MG Oral Tablet (Glucophage)Indicati ons:Type 2 diabetes, HbA1c goal < 7% (HCC),Noncompliance with medication regimen TAKE 1 TABLET BY MOUTH TWICE A DAY WITH BREAKFAST AND DINNER 180 Tablet 3 07/21/2022 Active Fluticasone Propionate 50 MCG/ACT Nasal Suspension (Flonase)Indications :Chronic rhinitis SPRAY 2 SPRAYS INTO EACH NOSTRIL EVERY DAY Strength: 50 MCG/ACT 48 mL 1 01/21/2023 Active Montelukast Sodium 10 MG Oral Tablet (Singulair)Indicatio ns:Acute sinusitis, recurrence not specified, unspecified location TAKE 1 TABLET BY MOUTH EVERY DAY IN THE MORNING 90 Tablet 1 03/19/2023 Active Sildenafil Citrate 20 MG Oral Tablet (Revatio)Indications :Erectile dysfunction, unspecified erectile dysfunction type TAKE 2 AND 1/2 TO 5 TABLETS BY MOUTH NEEDED FOR ERECTILE DYSFUNCTION. Strength: 20 mg 150 Tablet 0 03/25/2023 Active Rosuvastatin Calcium 20 MG Oral Tablet (Crestor)Indications :Type 2 diabetes, HbA1c goal < 7% (HCC),Hyperlipidemia , unspecified hyperlipidemia type Take 1 Tablet by mouth in the morning. 90 Tablet 3 04/13/2023 Active documented as of this encounter (statuses as of 04/13/2023) Active Problems Problem Noted Date Diagnosed Date Diabetic ulcer of toe of rig ht foot associated with type 2 diabetes mellitus, limited to breakdown of skin 03/19/2023 Erectile dysfunction 07/07/2017 Dyslipidemia, goal LDL below 70 03/26/2017 Type 2 diabetes, HbA1c goal < 7% 06/14/2016 Chews tobacco 10/12/2013 Obstructive sleep apnea on CPAP 03/24/2012 Overview: 06/2014 -- ResMed CPAP 13 cwp 2006 PSG -- severe DORETHA with hypoxemia [facility] Chronic rhinitis 03/24/2012 Herpes zoster 04/04/2007 Herniated nucleus pulposus, C6-7 right 4 documented as of this encounter (statuses as of 04/13/2023) Resolved Problems Problem Noted Date Diagnosed Date Resolved Date Severe obesity with body mas s index (BMI) of 35.0 to 39.9 with serious comorbidity 03/26/2017 Overview: bmi= 35.29 03/26/17 ICD-10 update of inactive diagnosis Alcohol ingestion, 1-4 drinks per day 05/18/2016 06/23/2018 Body mass index 35.0-35.9, adult 10/01/2015 03/03/2017 Overview: bmi= 35.26 10/01/15 Viral URI with cough 08/12/2015 017 Myalgia and myositis 08/12/2015 017 Hyperglycemia 03/26/2014 03/03/2017 Obesity, Class II, BMI 35-39 .9, isolated (see actual BMI) 10/12/2013 03/03/2017 Overview: bmi= 35.40 10/12/13 Screening for cardiovascular condition 10/12/2013 03/03/2017 Screening for diabetes mellitus 10/12/2013 03/03/2017 Obesity, Class I, BMI 30.0-3 4.9 (see actual BMI) 03/24/2012 03/03/2017 Overview: bmi= 34.86 03/24/12 Dysfunction of eustachian tube 03/24/2012 03/03/2017 Chronic sinusitis 03/24/2012 03/03/2017 Cough 03/24/2012 03/16/2014 Obesity, Class I, BMI 30.0-3 4.9 (see actual BMI) 07/02/2011 03/03/2017 Overview: BMI= 34.99 07/02/11 ADVANCE DIRECTIVE INFORMATION 05/04/2011 03/03/2017 Overview: No, Advance Directive brochure offered , patient declined. OBESITY, BMI= 34.94 02/21/10 02/21/2010 03/03/2017 HISTORY OF TOBACCO USE-ORAL QUIT 11/2002/21/2010 03/16/2014 Elevated blood pressure, situational 01/28/2010 03/16/2014 Dermatitis due to plant 01/09/201008/2013 Fertility testing 12/02/2009 03/16/2014 OVERWEIGHT, BMI= 30.68 06/27/08 06/27/2008 03/03/2017 High-risk sexual behavior 06/27/2008 TOBACCO USE DISORDER-ORAL 10/15/2004 OVERWEIGHT 10/15/2004 03/16/2014 Cervical root lesions, not e lsewhere classified 2003 06/27/2008 ALCOHOL USE-CONTINUOUS 07/06/200303/16 ROUTINE MEDICAL EXAM 2003 014 OBESITY, UNSPECIFIED 2003 005 Dyslipidemia, goal to be determined 01/28/2010 Abnormal blood chemistry 03/2010 Dyslipidemia, goal LDL below 100 03/16/2014 Allergic rhinitis 03/03/2017 documented as of this encounter (statuses as of 04/13/2023) Immunizations Name Administration Dates Next Due SEASONAL [...] oz pur e alcohol) 8-10 per day PHQ-2 Answer Date Recorded PHQ-2 Score 0 05/13/2020 Hunger Vital Sign Answer Date Recorded Within the past 12 months, y ou worried that your food would run out before you got the money to buy more. Never true 03/18/20 23 Within the past 12 months, t he food you bought just didn't last and you didn't have money to get more. Never true 03/18/2023 Sex and Gender Information Value Date Recorded Sex Assigned at Male 03/18/2023 1:07 PM EDT Gender Identity Male 03/18/2023 1:07 PM EDT Sexual Orientation Straight 03/18/2023 1: 07 PM EDT Job Start Date Occupation Industry Not on file Not on file Not on file documented as of this encounter Last Filed Vital Signs Vital Sign Reading Time Taken Comments Blood Pressure 142/76 04/13/2023 11:29 AM EDT Pulse 87 04/13/2023 11:29 AM EDT Temperature 36.7 C (98 F) 04/13/2023 11: 29 AM EDT Respiratory Rate 18 04/13/2023 11:2 9 AM EDT Oxygen Saturation 96% 04/13/2023 11: 29 AM EDT Inhaled Oxygen Concentration - - Weight 120.1 kg (264 lb 12.8 oz) 2022 11:29 AM EDT Height - - Body Mass Index 35.91 03/19/2023 9:08 AM EDT documented in this encounter Progress Notes * Victor Manuel Sharp MD - 04/13/2023 11:58 AM EDT Images from the original note were not included. Assessment and Plan 1. Type 2 diabetes, HbA1c goal < 7% (HCC) Uncontrolled with A1C 8.1. Repeat in 10 weeks. If remains above 7.5, start trulicity. Start statin given ASCVD risk score is 16%. - HEMOGLOBIN A1C; Future - Rosuvastatin Calcium 20 MG Oral Tablet (Crestor); Take 1 Tablet by mouth in the morning. Dispense: 90 Tablet; Refill: 3 2. Hyperlipidemia, unspecified hyperlipidemia type Start statin. - Rosuvastatin Calcium 20 MG Oral Tablet (Crestor); Take 1 Tablet by mouth in the morning. Dispense: 90 Tablet; Refill: 3 3. Chews tobacco Encourage cessation. Wrap-Up Follow up in 6 months. History of Present Illness The patient is a 57 year old male with past medical history of type II diabetes, dyslipidemia, DORETHA who presents for diabetes follow up. A1C increase to 8.1 from 6.8. Patient taking metformin 1000 mg twice daily. Has tried SGLT2 in the past and had yeast infections. Discussed potentially starting trulicity. Patient in agreement if A1Cnot improved in 10 weeks. Believes that chewing tobacco with a large amount of sugar that he recently changed to may be contributing. Since stopping this he has noted blood sugars in the 120s rather t schneider 160s -170s. Dyslipidemia not on statin. Agreeable to starting. Physical Exam Vitals: 04/13/23 1129 Temp: 36.7 C (98 F) Pulse: 87 Resp: 18 SpO2: 96% BP: 142/76 Physical Exam Physical Exam Vitals reviewed. Constitutional: General: He is not in acute distress. Pulmonary: Effort: Pulmonary effort is normal. No respiratory distress. Neurological: General: No focal deficit present. Mental Status: He is alert. Psychiatric: Mood and Affect: Mood normal. Behavior: Behavior normal. documented in this encounter Nursing Notes * Sadia Montgomery LPN - 04/13/2023 11:33 AM EDT The patient has been properly identified by confirmation of name and date of . Chief Complaint Patient presents with Acute Medications for diabetes documented in this encounter Plan of Treatment Upcoming Encounters Date Type Department Care Team (Late st Contact Info) Description 10/12/2023 3:20 PM EDT Office Visit [facility] [address] [place] [address] Victor Manuel Sharp MD [address] [facility] [place] [id number] Scheduled Orders Name Type Priority Associated Diagnoses Orde r Schedule HEMOGLOBIN A1C Lab Routine Type 2 diabetes, HbA1c goal < 7% ([facility]) Expected: 04/13/2023 (Approximate), Expires: 04/12/2024 Scheduled Procedures Name Priority Associated Diagnoses Date/Ti me COLONOSCOPY FLEXIBLE PROXIMA L DIAGNOSTIC Recall History of colonic polyps Health Maintenance Due Date Last Done Comments Hepatitis B (1 of 3 - 3-dose series) 1965 COVID-19 Vaccine (#1) 1970 Pneumococcal Vaccine: Pediatrics (0 to 5 Years) and At-Risk Patients (6 to 64 Years) (1 - PCV) 1971 Diabetic Eye Exam 1983 Hepatitis C Screening 1983 Zoster Vaccines (1 of 2) 1984 Depression Screening 04/30/2021 04/30/2020, 03/26/2017 (Discussed) B-12 06/25/2022 06/25/2021 Influenza Vaccine (FLU shot) (#1) 2023 04/03/2019, 05/25/2018, 03/26/2017, Additional history exists Albumin/Creatinine Ratio 04/30/20232 022, 06/25/2021, 06/25/2021, Additional history exists HbA1c 09/30/2023 03/31/2023, 04/14, 04/30/2022, Additional history exists Diabetic Foot Exam 03/19/2024 03/19/2023, 0 01/08/2021, 08/15/2018, Additional history exists GFR 03/31/2024 03/31/2023, 04/14, 10/03/2020, Additional history exists COLONOSCOPY-EVERY 3 YRS AGES 18-100 12/05/2024 12/05/2021, 12/05/2021, 07/09/2017, Additional history exists DTaP,Tdap,and Td Vaccines (3 - Td or Tdap) 03/26/2027 03/26/2017, 09/16/2006 Lipid Panel 03/31/2028 03/31/2023, 04/14, 04/30/2022, Additional history exists GARDASIL-HPV IMMUNIZATION SERIES Aged Out No longer eligible based on patient's age to complete this topic MENINGOCOCCAL (MENACTRA/MENVEO) Aged Out No longer eligible based on patient's age to complete this topic documented as of this encounter Medical Devices Not on filedocumented as of this encounter Visit Diagnoses Diagnosis Type 2 diabetes, HbA1c goal < 7% ([facility])- Primary Type II or unspecified type diabetes mellitus without mention of complication, not stated as uncontrolled Hyperlipidemia, unspecified hyperlipidemia type Chews tobacco Tobacco use disorder documented in this encounter Care Teams Associate Director Data & Analytics Relationship Specialty Start Date End Date Erickson Yoon MD [address] [place] [address] PCP - General Family Medicine 10/04/18 documented as of this encounter
--- OUTSIDE RECORDS SUMMARY | 2023-04-26 01:23 | External Medical Summary | Summary of Care ---
Author Name Unknown Organization [facility] Address [address] [place] [address] Phone [phone] Care Team Providers Care Corporate Recruiter Name Role Phone Erickson Freeman MD Primary Care Provider [phone]- [phone] Reason for Referral * Medication Prior Authorization - Closed Specialty Diagnoses / Procedures Referred By Contac t Referred To Contact Diagnoses Erectile dysfunction, unspecified erectile dysfunction type Erickson Freeman MD [address] [place] [address] Referral ID Status Reason Start Date Expiration Date Visits Re quested Visits Authorized [id number] Closed [phone] Encounter Details Date Type Department Care Team Description 01/01/2023 Refill [facility] [address] [place] [address] Erickson Freeman MD [address] [place] [address] Erectile dysfunction, unspecified erectile dysfunction type Allergies Active Allergy Reactions Severity Noted Date Comments Empagliflozin 10/04/2018 Recurrent yeast documented as of this encounter (statuses as of 01/07/2023) Medications Medication Sig Dispensed Refills Start Date [...] Strength: 50 MCG/ACT 16 mL 5 09/04/2022 Active Montelukast Sodium 10 MG Oral Tablet [...] 20 mg 150 Tablet 0 01/01/2023 Active Sildenafil Citrate 20 MG Oral Tablet (Revatio)Indicati ons:Erectile dysfunction, unspecified erectile dysfunction type TAKE 2 AND 1/2 TO 5 TABLETS BY MOUTH NEEDED FOR ERECTILE DYSFUNCTION. Strength: 20 mg 50 Tablet 1 11/12/2022 3 Discontinued documented as of this encounter (statuses as of 01/07/2023) Active Problems Problem Noted Date Erectile dysfunction [...] as of this encounter (statuses as of 01/07/2023) Resolved Problems Problem Noted Date Resolved Date [...] as of this encounter (statuses as of 01/07/2023) Immunizations Name Administration Dates Next Due Seasonal [...] encounter Miscellaneous Notes * Telephone Encounter - Laura Slaughter LPN - 01/04/2023 10:51 AM EDT Please assist pt with scheduling appt * Telephone Encounter - Erickson Freeman MD - 01/01/2023 4:16 PM EDTSigned Prescriptions: Disp Refills Sildenafil Citrate 20 MG Oral Tablet (Hayde*150 Ta*0 Sig: TAKE 2 AND 1/2 TO 5 TABLETS BY MOUTH NEEDED FOR ERECTILE DYSFUNCTION. Strength: 20 mg Authorizing Provider: ERICKSON FREEMAN * Telephone Encounter - Erickson Freeman MD - 01/01/2023 4:14 PM EDT I have not seen him for over 2 years and he has not been to our office for over a year. Please contact to set up follow up appt. documented in this encounter Plan of Treatment [...] 04/30/2022, 04/2 07/2020, 05/13/2020, Additional history exists COLONOSCOPY-EVERY 3 YRS [...] as of this encounter Visit Diagnoses Diagnosis Erectile dysfunction, unspecified erectile dysfunction type documented in this encounter Care Teams Corporate Recruiter Relationship Specialty Start Date End Date Erickson Freeman MD [address] [place] [address] PCP - General Family Medicine 10/04/18 documented as of this encounter
--- OUTSIDE RECORDS SUMMARY | 2023-04-26 01:23 | External Medical Summary | Summary of Care ---
Author Name Unknown Organization [facility] Address [address] [place] [address] Phone [phone] Care Team Providers Care Audiology Technician Name Role Phone Erickson Freeman MD Primary Care Provider +1- [phone] Reason for Visit * Reason Comments eRx-Medication Refill Encounter Details Date Type Department Care Team Description 03/19/2023 Refill [facility] [address] [place] [address] Erickson Freeman MD [address] [place] [address] Acute sinusitis, recurrence not specified, unspecified location Allergies Active Allergy Reactions Severity Noted Date [...] pe 2 diabetes, HbA1c goal < 7% ([facility]) Use as directed. DX:E11.9 Use to check [...] AND DINNER 180 Tablet 3 07/21/2022 Active Sildenafil Citrate 20 MG Oral Tablet [...] THE MORNING 90 Tablet 1 03/19/2023 Active Montelukast Sodium 10 MG Oral Tablet (Singulair)Indica tions:Acute sinusitis, recurrence not specified, unspecified location TAKE 1 TABLET BY MOUTH EVERY DAY IN THE MORNING 90 Tablet 0 12/07/2022 3 Discontinued documented as of this encounter [...] Smoking Tobacco: Never Smokeless Tobacco: Former Snuff Comments:3 cans per week Alcohol Use [...] at Date Recorded Male 03/18/2023 1:07 PM E DT Job Start Date Occupation Industry Not on file Not on file Not on file documented as of this encounter Miscellaneous Notes * Telephone Encounter - Massiel Kirk [facility] - 03/19/2023 2:44 PM EDTSigned Prescriptions: Disp Refills Montelukast Sodium 10 MG Oral Tablet (Sing*90 Tab*1 Sig: TAKE 1 TABLET BY MOUTH EVERY DAY IN THE MORNING Authorizing Provider: ERICKSON FREEMAN User: MASSIEL KIRK * Telephone Encounter - Chetna Ritter CPhT - 03/19/2023 10:46 AM EDTPending Prescriptions: Disp Refills Montelukast Sodium 10 MG Oral Tablet [Phar*90 Tab*0 Sig: TAKE 1 TABLET BY MOUTH EVERY DAY IN THE MORNING * Telephone Encounter - Chetna Ritter CPhT - 03/19/2023 10:44 AM EDT Did you pend patient's preferred pharmacy and medication before forwarding?yes Pharmacy: [id number] [address] [place] [address] Pending Prescriptions: Disp Refills Montelukast Sodium 10 MG Oral Tablet (Sin*90 Tab*0 Sig: TAKE 1 TABLET BY MOUTH EVERY DAY IN THE MORNING Last Visit: 03/19/2023 (in office), 05/13/2020 (telemedicine) Next Visit: Visit date not found If no future appointments scheduled, and last appointment is greater than a year ago, please schedule patient for a follow-up appointment Last date the medication was ordered: 12/07/22 Is this request for a controlled substance?No Urine Drug Screen:No results found for this or any previous visit. Patient Phone Numbers Labs: Lab Results Component Value Date/Time CREAT 0.94 04/30/2022 12:00 AM CREAT 1.0 03/17/2017 10:37 AM POTASSIUM 4.7 04/30/2022 12:00 AM POTASSIUM 4.1 03/17/2017 10:37 AM TSH 2.50 09/16/2006 08:44 AM LDLCALC 113 (A) 04/30/2022 12:00 AM LDLCALC 110 (A) 04/30/2022 12:00 AM LDLCALC 106 03/17/2017 10:37 AM LDLDIRECT NOT APPLICABLE 06/19/2016 08:18 AM ALT 19 10/03/2020 12:00 AM ALT 28 06/27/2008 09:47 AM HGBA1C 6.9 (A) 04/30/2022 12:00 AM HGBA1C 6.8 (A) 04/30/2022 12:00 AM HGBA1C 9.4 (H) 03/17/2017 10:37 AM documented in this encounter Plan of Treatment [...] as of this encounter Visit Diagnoses Diagnosis Acute sinusitis, recurrence not specified, unspecified location documented in this encounter Care Teams Audiology Technician Relationship Specialty Start Date End Date Erickson Freeman MD [address], [place] [id number] PCP - General Family Medicine 10/04/18 documented as of this encounter
--- OUTSIDE RECORDS SUMMARY | 2023-04-26 01:24 | External Medical Summary | Summary of Care ---
Author Name Unknown Organization [facility] Address [address] [place] [address] Phone [phone] Care Team Providers Care Coiled Tubing Operator Name Role Phone Erickson Yoon MD Primary Care Provider +1- [phone] Reason for Visit * Reason Onset Date Comments Medication Refill 12/07/2022 Encounter Details Date Type Department Care Team Description 12/07/2022 Refill [facility] [address] [place] [address] Erickson Yoon MD [address] [place] [address] Erectile dysfunction, unspecified erectile dysfunction type Allergies Active Allergy Reactions Severity Noted Date Comments Empagliflozin 10/04/2018 Recurrent yeast documented as of this encounter (statuses as of 12/08/2022) Medications Medication Sig Dispensed Refills Start Date End Date Status ECOTRIN LOW STRENGTH 81 MG PO TBECIndications:Ro utine medical exam One pill by mouth once a day 0 03/16/2014 Active FEXOFENADINE HCL 180 MG PO TABSIndications:Ch ronic rhinitis One pill by mouth once a day as needed for allergies 30 Tab 11 03/16/2014 Active Blood Glucose Monitoring Suppl (ONETOUCH VERIO) W/DEVICE KITIndications:Typ e 2 diabetes, HbA1c goal < 7% ([facility]) Use as directed. DX:E11.9 Use to check blood sugars one to two times daily. 1 Kit 0 06/24/2016 Active ONETOUCH LANCETS MISCIndications:Ty pe 2 diabetes, HbA1c goal < 7% (HCC) DX: E11.9 Use to check blood sugars one to two times daily. 1 Box Dosing Unit 11 06/24/2016 Active OneTouch Verio In Vitro Strip (Glucose Blood)Indications: Type 2 diabetes, HbA1c goal < 7% (HCC) Use to check blood sugars one to two times daily. 300 Strip 3 05/23/2020 Active Tacrolimus 0.1 % External Ointment (Protopic) Apply topically to affected area 2 times a day. Apply to facial rash 2x daily when itchy/bothersome until resolved, then when flaring 60 g 2 04/16/2021 Active Cephalexin 500 MG Oral Capsule (Keflex)Indication s:Contact dermatitis, unspecified contact dermatitis type, unspecified trigger Take 1pill 3x daily for 10 days (with or without food) 30 Capsule 0 12/08/2021 Active metFORMIN HCl 1000 MG Oral Tablet (Glucophage)Indica tions:Type 2 diabetes, HbA1c goal < 7% (HCC),Noncomplianc e with medication regimen TAKE 1 TABLET BY MOUTH TWICE A DAY WITH BREAKFAST AND DINNER 180 Tablet 3 07/21/2022 Active Fluticasone Propionate 50 MCG/ACT Nasal Suspension (Flonase)Indicatio ns:Chronic rhinitis SPRAY 2 SPRAYS INTO EACH NOSTRIL EVERY DAY Strength: 50 MCG/ACT 16 mL 5 09/04/2022 Active Sildenafil Citrate 20 MG Oral Tablet (Revatio)Indicatio ns:Erectile dysfunction, unspecified erectile dysfunction type TAKE 2 AND 1/2 TO 5 TABLETS BY MOUTH NEEDED FOR ERECTILE DYSFUNCTION. Strength: 20 mg 50 Tablet 1 11/12/2022 Active Montelukast Sodium 10 MG Oral Tablet (Singulair)Indicat ions:Acute sinusitis, recurrence not specified, unspecified location TAKE 1 TABLET BY MOUTH EVERY DAY IN THE MORNING 90 Tablet 0 12/07/2022 Active documented as of this encounter (statuses as of 12/08/2022) Active Problems Problem Noted Date Erectile dysfunction [...] as of this encounter (statuses as of 12/08/2022) Resolved Problems Problem Noted Date Resolved Date [...] as of this encounter (statuses as of 12/08/2022) Immunizations Name Administration Dates Next Due Seasonal [...] encounter Miscellaneous Notes * Telephone Encounter - Nata Osborn [facility] - 12/08/2022 10:01 AM EDTRefused Prescriptions: Disp Refills Sildenafil Citrate 20 MG Oral Tablet (Hayde*50 Tab*1 Sig: TAKE 2AND 1/2 TO 5 TABLETS BY MOUTH NEEDED FOR ERECTILE DYSFUNCTION. Strength: 20 mgRefused By: BATSHEVA OSBORNNReason for Refusal: Too soon documented in this encounter Plan of Treatment Scheduled Procedures Name Priority Associated Diagnoses Date/Ti me COLONOSCOPY FLEXIBLE PROXIMA L DIAGNOSTIC Recall History of colonic polyps Health Maintenance Due Date Last Done Comments Hepatitis B (1 of 3 - 3-dose series) 1965 COVID-19 Vaccine (#1) 01/03/1966 Pneumococcal Vaccine: Pediatrics (0 to 5 Years) and At-Risk Patients (6 to 64 Years) (1 - PCV) 1971 DIABETES-EYE EXAM 1983 Hepatitis C Screening 1983 Zoster Vaccines (1 of 2) 1984 Depression Screening, Annual for Pts 12 and Over 04/30/2021 04/30/2020, 03/26/2017 (Discussed) DIABETES-FOOT EXAM 01/08/2022 01/08/2021, 0 08/15/2018, 10/20/2017, Additional history exists Yearly B-12 06/25/2022 06/25/2021, 05/13/2020 HbA1c 10/28/2022 04/30/2022, 04/14, 06/25/2021, Additional history exists Influenza Vaccine (FLU shot) (Season Ended) 2023 04/03/2019, 05/25/2018, 03/26/2017, Additional history exists [...] type documented in this encounter Care Teams Coiled Tubing Operator Relationship Specialty Start Date End Date Erickson Yoon MD [address] [place] [address] PCP - General Family Medicine 10/04/18 documented as of this encounter
--- OUTSIDE RECORDS SUMMARY | 2023-04-26 01:24 | External Medical Summary | Summary of Care ---
Author Name Unknown Organization [facility] Address [address] [place] [address] Phone [phone] Care Team Providers Care Heel Nail Rasper Name Role Phone Erickson Yoon MD Primary Care Provider +1- [phone] Reason for Visit * Reason Onset Date Comments Medication Refill 11/11/2022 Encounter Details Date Type Department Care Team Description 11/11/2022 Refill [facility] [address] [place] [address] Erickson Yoon MD [address] [place] [address] Chronic rhinitis Allergies Active Allergy Reactions Severity Noted Date Comments Empagliflozin 10/04/2018 Recurrent yeast documented as of this encounter (statuses as of 11/12/2022) Medications Medication Sig Dispensed Refills Start Date [...] pe 2 diabetes, HbA1c goal < 7% ([facility]) Use as directed. DX:E11.9 Use to check [...] sinusitis, recurrence not specified, unspecified location TAKE BY MOUTH 1 TABLET IN THE MORNING. 90 Tablet 0 09/24/2022 Active Sildenafil Citrate 20 MG Oral Tablet (Revatio)Indicati ons:Erectile dysfunction, unspecified erectile dysfunction type TAKE 2 AND 1/2 TO 5 TABLETS BY MOUTH NEEDED FOR ERECTILE DYSFUNCTION. 50 Tablet 0 10/16/2022 3 Discontinue d(Refill) documented as of this encounter (statuses as of 11/12/2022) Active Problems Problem Noted Date Erectile dysfunction [...] as of this encounter (statuses as of 11/12/2022) Resolved Problems Problem Noted Date Resolved Date [...] as of this encounter (statuses as of 11/12/2022) Immunizations Name Administration Dates Next Due Seasonal [...] encounter Miscellaneous Notes * Telephone Encounter - Leticia Preciado RPh - 11/12/2022 10:10 AM EDTRefused Prescriptions: Disp Refills Fluticasone Propionate 50 MCG/ACT Nasal White*16 mL 5 Sig: SPRAY 2 SPRAYS INTO EACH NOSTRIL EVERY DAY Strength: 50 MCG/ACTRefused By: Jorge PRECIADO for Refusal:Too soon documented in this encounter Plan of [...] rhinitis documented in this encounter Care Teams Heel Nail Rasper Relationship Specialty Start Date End Date Erickson Yoon MD [address] [place] [address] PCP - General Family Medicine 10/04/18 documented as of this encounter
--- OUTSIDE RECORDS SUMMARY | 2023-04-26 01:24 | External Medical Summary | Summary of Care ---
Author Name Unknown Organization [facility] Address [address] [place] [address] Phone [phone] Care Team Providers Care Warehouse Assembly Worker Name Role Phone Erickson Yoon MD Primary Care Provider +1- [phone] Reason for Visit * Reason Comments eRx-Medication Refill Encounter Details Date Type Department Care Team Description 11/24/2022 Refill [facility] [address] [place] [address] Erickson Yoon MD [address] [place] [address] Erectile dysfunction, unspecified erectile dysfunction type Allergies Active Allergy Reactions Severity Noted Date Comments Empagliflozin 10/04/2018 Recurrent yeast documented as of this encounter (statuses as of 11/25/2022) Medications Medication Sig Dispensed Refills Start Date [...] e 2 diabetes, HbA1c goal < 7% ([facility]) Use as directed. DX:E11.9 Use to check [...] 20 mg 50 Tablet 1 11/12/2022 Active documented as of this encounter (statuses as of 11/25/2022) Active Problems Problem Noted Date Erectile dysfunction [...] as of this encounter (statuses as of 11/25/2022) Resolved Problems Problem Noted Date Resolved Date [...] as of this encounter (statuses as of 11/25/2022) Immunizations Name Administration Dates Next Due Seasonal [...] encounter Miscellaneous Notes * Telephone Encounter - Patricia Jeffries [facility] - 11/25/2022 10:30 AM EDTRefused Prescriptions: Disp Refills Sildenafil Citrate 20 MG Oral Tablet (Hayde*50 Tab*1 Sig: TAKE 2AND 1/2 TO 5 TABLETS BY MOUTH NEEDED FOR ERECTILE DYSFUNCTION.Refused By: PATRICIA JEFFRIESeason for Refusal: Duplicate Request documented in this encounter Plan of Treatment [...] type documented in this encounter Care Teams Warehouse Assembly Worker Relationship Specialty Start Date End Date Erickson Yoon MD [address] [place], [place] [phone] PCP - General Family Medicine 10/04/18 documented as of this encounter
--- OUTSIDE RECORDS SUMMARY | 2023-04-26 01:24 | External Medical Summary | Summary of Care ---
Author Name Unknown Organization [facility] Address [address] [place] [address] Phone [phone] Care Team Providers Care Front Desk Coordinator Name Role Phone Erickson Yoon MD Primary Care Provider +1- [phone] Reason for Visit * Reason Onset Date Comments Medication Refill 12/01/2022 Encounter Details Date Type Department Care Team Description 12/01/2022 Refill [facility] [address] [place] [address] Erickson Yoon MD [address] [place] [address] Erectile dysfunction, unspecified erectile dysfunction type Allergies Active Allergy Reactions Severity Noted Date Comments Empagliflozin 10/04/2018 Recurrent yeast documented as of this encounter (statuses as of 12/02/2022) Medications Medication Sig Dispensed Refills Start Date [...] e 2 diabetes, HbA1c goal < 7% ([facility]) Use as directed. DX:E11.9 Use to [...] as of this encounter (statuses as of 12/02/2022) Active Problems Problem Noted Date Erectile dysfunction [...] as of this encounter (statuses as of 12/02/2022) Resolved Problems Problem Noted Date Resolved Date [...] as of this encounter (statuses as of 12/02/2022) Immunizations Name Administration Dates Next Due Seasonal [...] encounter Miscellaneous Notes * Telephone Encounter - Lyndsey Michelle [facility] - 12/02/2022 2:22 PM EDTRefused Prescriptions: Disp Refills Sildenafil Citrate 20 MG Oral Tablet (Hayde*50 Tab*1 Sig: TAKE 2 AND 1/2 TO 5 TABLETS BY MOUTH NEEDED FOR ERECTILE DYSFUNCTION. Strength: 20 mgRefused By: LYNDSEY MICHELLE for Refusal: Duplicate Request Electronically signed by Lyndsey Michelle [facility] at 12/02/2022 2:22 PM EDT documented in this encounter Plan of Treatment [...] type documented in this encounter Care Teams Front Desk Coordinator Relationship Specialty Start Date End Date Erickson Yoon MD [address], [place] [id number] PCP - General Family Medicine 10/04/18 documented as of this encounter
--- OUTSIDE RECORDS SUMMARY | 2023-04-26 01:24 | External Medical Summary | Summary of Care ---
Author Name Unknown Organization [facility] Address [address] [place] [address] Phone [phone] Care Team Providers Care Diesel Lube Tech Name Role Phone Erickson Freeman MD Primary Care Provider +1- [phone] Reason for Visit * Reason Onset Date Comments Medication Refill 11/11/2022 Encounter Details Date Type Department Care Team Description 11/11/2022 Refill [facility] [address] [place] [address] Erickson Freeman MD [address] [place] [address] Erectile dysfunction, unspecified erectile dysfunction [...] pe 2 diabetes, HbA1c goal < 7% ([facility]) Use as directed. DX:E11.9 Use to [...] 20 mg 50 Tablet 1 11/12/2022 Active Sildenafil Citrate 20 MG Oral Tablet [...] encounter Miscellaneous Notes * Telephone Encounter - Valarie Huff [facility] - 11/12/2022 10:15 AM EDTSigned Prescriptions: Disp Refills Sildenafil Citrate 20 MG Oral Tablet (Hayde*50 Tab*1 Sig: TAKE 2 AND 1/2 TO 5 TABLETS BY MOUTH NEEDED FOR ERECTILE DYSFUNCTION. Strength: 20 mgAuthorizing Provider: ERICKSON FREEMAN User: VALARIE HUFF documented in this encounter Plan of Treatment [...] type documented in this encounter Care Teams Diesel Lube Tech Relationship Specialty Start Date End Date Erickson Freeman MD [address] [place] [address] PCP - General Family Medicine 10/04/18 documented as of this encounter
[2023-04-26] MEDS ORDERED: GENTAMICIN TROUGH ONE (03:30)
[2023-04-26] MEDS: GENTAMICIN SULFATE 80 MG in DEXTROSE 5% 100 ML IV SCH (03:59)
[2023-04-26] MEDS ORDERED: GENTAMICIN PEAK ONE (04:00)
[2023-04-26 04:06] LABS: BUN Creatinine Ratio 12.1 (10-20); Basophils # (auto) 0.07 K/uL (0.00-0.20); Basophils % (auto) 0.8 %; Calcium 8.4 mg/dl (8.6-10.3); Creatinine Clr Calc Pharmacy 108.9 ml/min; Eosinophils # (auto) 0.27 K/uL (0.00-0.50); Eosinophils % (auto) 3.2 %; Est GFR (African American) 97.6 ml/min; Est GFR (Non-African American) 84.2 ml/min; Hematocrit (blood only) 35.3 % (42.0-52.0); Hemoglobin 11.9 g/dl (14.0-18.0); Immature Granulocytes # (auto) 0.15 K/uL (0.01-0.20); Immature Granulocytes % (auto) 1.8 %; Lymphocytes # (auto) 1.76 K/uL (1.20-3.40); Lymphocytes % (auto) 20.6 %; Magnesium 1.7 mg/dl (1.7-2.4); Mean Corpuscular Hgb Conc 33.7 g/dL (32.0-36.0); Mean Corpuscular Volume 88.9 fL (80.0-100.0); Mean Platelet Volume 10.7 fL (9.4-12.4); Monocytes # (auto) 0.91 K/uL (0.11-0.59); Monocytes % (auto) 10.7 %; Neutrophils # (auto) 5.37 K/uL (1.40-6.50); Neutrophils % (auto) 62.9 %; Platelet Count 173 K/uL (130-400); Potassium 4.1 mmol/L (3.5-5.1); RDW Coefficient of Variation 13.1 % (11.5-14.5); RDW Standard Deviation 42.5 fL (36.4-46.3); Red Blood Count 3.97 M/uL (4.70-6.10); White Blood Count 8.53 K/ul (4.8-10.8)
[2023-04-26] MEDS: INSULIN ASPART PER UNIT CHARGE SC SCH ×2 (08:14→12:08)
[2023-04-26] MEDS: MONTELUKAST SODIUM 10 MG TABLET PO SCH (08:15)
[2023-04-26] MEDS: THIAMINE HCL 100 MG in SYRINGE 9 ML IV SCH (08:15)
[2023-04-26] MEDS: FOLIC ACID 1 MG in SYRINGE 9.8 ML IV SCH (08:15)
[2023-04-26] MEDS: CEROVITE ADV FORMULA TAB PO SCH (08:15)
[2023-04-26 10:47] LABS: Babesia microti DNA Not Detected (Not Detected)
--- NOTE | 2023-04-26 11:57 | Communication Note ---
Date of Service: April 26, 2023 MICROBIOLOGY: 04/21: 4/ 4 bottles of blood cultures growing GBS and 1 of 4 bottles of blood cultures grew MSSA 04/22: CSF analysis with 31 nucleated cells (50% mononuclear cells and 50% PMNs), glucose 92, total protein 120.8 04/22: CSF meningitis encephalitis panel negative including GBS 04/22: CSF culture negative TTE performed on 04/23 showed concerns for posterior mitral valve leaflet small vegetation; however, rodolfo performed on 04/25 did not show any vegetations. 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 I cannot fully explain the MSSA growing along GBS on 04/21 unless it's a polymicrobial endocarditis!!! So, I will treat as GBS/MSSA torres martinez valve endocarditis. - As for the other unusual finding of aseptic meningitis can only be explained by coexisting viral meningitis (though less likely, it could be reactive inflammation to endocarditis/bacetremia). - Since Meningitis and encephalitis panel as well as CSF cx are negative, please change Ceftriaxone to 2 g IV daily along with Gentamicin 3mg/kg/day. - Treatment with ceftriaxone for 6 weeks and with Gentamicin for 2 weeks. Counting to be started from 04/23 (first negative blood Cx). Anticipated end date for Gentamicin will be May 07, 2023 and end date for Ceftriaxone will be Jun 04, 2023. - I will set an appointment for him with us in 6 weeks.
--- NOTE | 2023-04-26 13:09 | Cardiology Progress Note ---
Date of Service April 26, 2023 Assessment & Plan (1) Bacteremia due to group B Streptococcus: Plan Agree with 6 weeks of IV antibiotic therapy for presumed endocarditis IV antibiotic therapy regimen as per infectious disease. Discharge pending PICC line placement Recommend follow-up cultures and repeat resting echocardiography following completion of antibiotics Please contact with any questions or concerns Admission and Anticipated Discharge Date Admission Date: April 21, 2023 Supervising Physician Co-Signing Physician Notes Attending Staff: Pt seen and evaluated with AP Staff Concur with observations and plans 57 yo man Staph Bacteremia - cleared PICC Line placed Plan for 6 weeks of ABX Plans for repeat Blood Cultures when ABX completed Plans for repeat ECHO when ABX completed Please arrange for follow up with [facility] at [facility] [place] Patient seen and examined. Chart, medications, and telemetry reviewed. at bedside. Patient with group B Streptococcus and MSSA bacteremia + Diabetic, wound on the right great toe TTE on April 23, 2023 was fair in technical quality, revealing focal thickening at the base of the noncoronary cusp leaflet of the aortic valve and focal thickening at the base of the posterior mitral valve leaflet, 4 mm mobile lesion attached to the base suggestive of vegetation GORDON on April 25, 2023 with no definite vegetation observed, revealing focal calcification of the noncoronary cusp of the aortic valve, and mild posterior mitral annular calcification without findings of superimposed vegetation ID has recommended 6 weeks of ceftriaxone, 2 weeks of gentamicin starting from April 23, 2023. Anticipated end date of gentamicin is May 07, 2023 and June 04, 2023 for ceftriaxone Patient feels better now than he has in months. No chest pain. No palpitation s. No shortness of breath. Telemetry: Sinus in the 70s Review of Systems Review of Systems: All systems reviewed & are unremarkable except as noted in HPI & below Complete review of systems is otherwise as stated above, negative, noncontributory. Physical Exam Physical Exam: Examined in the bedside chair General: A&Ox3. NAD. HENT: Normocephalic. Atraumatic. Eyes: PER. Conjunctiva pink, sclera clear. Neck: No carotid bruits. No JVD. Heart: RRR. Grade 2/6 systolic murmur heard best at the lower left sternal border. No diastolic murmur. No rub. Lungs: Clear to auscultation. Abdomen: +BS. Soft. Nontender. No masses or organomegaly. Extremities: No clubbing, cyanosis, or edema. Limited neurological examination is without focal deficits. Pulses: radial=2/4, posterior tibial=2/4. Results & Data Vital Signs (Past 12 Hours) Vital Signs Temp Pulse Pulse Resp BP Pulse Ox O2 Del Method 04/26/23 11:18 36.7 C 60 18 115/64 94 Room Air 04/26/23 07:45 63 04/26/23 07:30 36.5 C 67 18 136/82 95 Room Air 04/26/23 03:57 37.3 C 67 18 168/83 H 94 Room Air 04/26/23 01:16 37.1 C 65 17 169/93 H 94 CPAP FiO2 04/26/23 11:18 04/26/23 07:45 04/26/23 07:30 04/26/23 03:57 04/26/23 01:16 10.3 Laboratory Results CBC 04/26/23 Range/Units 03:27 WBC 8.53 (4.8-10.8) K/ul RBC 3.97 L (4.70-6.10) M/uL Hgb 11.9 L (14.0-18.0) g/dl Hct 35.3 L (42.0-52.0) % Plt Count 173 (130-400) K/uL Neut # (Auto) 5.37 (1.40-6.50) K/uL Lymph # (Auto) 1.76 (1.20-3.40) K/uL Payette # (Auto) 0.91 H (0.11-0.59) K/uL Eos # (Auto) 0.27 (0.00-0.50) K/uL Baso # (Auto) 0.07 (0.00-0.20) K/uL Comprehensive Metabolic Panel 04/26/23 Range/Units 03:27 Sodium 136 (136-145) mmol/L Potassium 4.1 (3.5-5.1) mmol/L Chloride 102 (98-107) mmol/L Carbon Dioxide 27 (21-32) mmol/L BUN 12 (6-23) mg/dl Creatinine 0.99 (0.6-1.4) mg/dl Glucose 146 H (70-99(Fasting)) mg/dl Calcium 8.4 L (8.6-10.3) mg/dl Intake and Output 04/25/23 04/26/23 04/26/23 22:59 06:59 14:59 Intake Total 462 / 1466 752 / 1466 50 / 50 Output Total 400 / 400 Balance 462 / 1066 352 / 1066 50 / 50 Intake: IV 102 / 506 152 / 506 50 / 50 Gentamicin Sulfate 80 mg In 102 / 306 102 / 306 Dextrose 5% 100 ml @ 100 mls/hr IV Q8H [facility] Rx#:[id number] cefTRIAXone SODIUM 2,000 mg In 50 / 100 50 / 50 Dextrose 5 % Mini-B 50 ml @ 100 mls/hr IV Q12H [facility] Rx#: [id number] Oral 360 / 960 600 / 960 Output: Urine 400 / 400 Other: # Unmeasured Voids 3 Weight 115.5 kg Weight Measurement Method Standing Scale Medications Administered Current Inpatient Medications Dextrose (Dextrose 50% 50 Ml Syringe) 25 - 50 ml IV UD PRN; Protocol PRN Reason: Hypoglycemia Protocol Stop: 05/22/23 02:16 Glucagon (Glucagon For Inj 1 Mg Vial) 1 mg SQ UD PRN; Protocol PRN Reason: Hypoglycemia Protocol Stop: 05/22/23 02:16 Glucose (Glucose 10 Tab/Tube) 4 - 8 tab PO UD PRN; Protocol PRN Reason: Hypoglycemia Treatment Stop: 05/22/23 02:16 Glucose (Glucose 40% Gel 15 Gm Tube) 15 - 30 gm PO UD PRN; Protocol PRN Reason: Hypoglycemia Protocol Stop: 05/22/23 02:16 Ceftriaxone Sodium 2,000 mg/ (Dextrose) 50 mls @ 100 mls/hr IV Q12H MARK; Protocol Stop: 05/02/23 11:59 Last Infusion: 04/26/23 13:06 Dose: Infused Thiamine HCl 100 mg/ Syringe 10 mls @ 2 mls/min IV QAM MARK Stop: 05/22/23 08:59 Last Admin: 04/26/23 08:15 Dose: 2 mls/min Folic Acid 1 mg/ Syringe 10 mls @ 5 mls/min IV QAM MARK Stop: 05/22/23 08:59 Last Admin: 04/26/23 08:15 Dose: 5 mls/min Lorazepam 1 mg/ Syringe 1 mls @ 2 mls/min IV UD PRN; Protocol PRN Reason: EtOH Withdrawal AWSS Score 6,7 Stop: 05/22/23 06:22 Lorazepam 2 mg/ Syringe 2 mls @ 2 mls/min IV UD PRN; Protocol PRN Reason: EtOH Withdrawal AWSS Score 8,9 Stop: 05/22/23 06:22 Lorazepam 3 mg/ Syringe 3 mls @ 2 mls/min IV ONCE PRN; Protocol PRN Reason: EtOH Withdrawal AWSS Score 10+ Gentamicin Sulfate 275 mg/ (Dextrose) 106.875 mls @ 100 mls/hr IV Q24H [facility] Stop: 06/07/23 18:59 Insulin Aspart (Insulin Aspart Per Unit Charge) 0 units SC ACHS [facility] Stop: 05/22/23 16:29 Last Admin: 04/26/23 12:08 Dose: 6 units Miscellaneous (Carbohydrates For Hypoglycemia ) 15 - 30 gm PO UD PRN PRN Reason: Hypoglycemia Protocol Stop: 05/22/23 02:16 Miscellaneous Information (Gentamicin Consult Active) 1 each N/A UD PRN PRN Reason: Consult Stop: 05/23/23 11:22 Montelukast Sodium (Montelukast Sodium 10 Mg Tablet) 10 mg PO QAM [facility] Stop: 05/22/23 08:59 Last Admin: 04/26/23 08:15 Dose: 10 mg Multivitamins/Minerals (Cerovite Adv Formula Tab) 1 tab PO QAM [facility] Stop: 05/22/23 08:59 Last Admin: 04/26/23 08:15 Dose: 1 tab Nitroglycerin (Nitroglycerin Sl 0.4 Mg/Tab Tab) 0.4 mg SL Q5M PRN PRN Reason: Chest Pain Stop: 05/22/23 02:16
--- NOTE | 2023-04-26 13:20 | Pharmacy Report ---
Pharmacy PK ABX Note - Date of Service April 26, 2023 - Assessment and Plan Assessment 04/26: * Trough level this morning elevated >1. Patient is a candidate for longer interval dosing. Discussed with provider/ID, provider would prefer a once daily regimen. Alternative dosing for strep endocarditis is 3 mg/kg q 24 hours. Will plan to transition to this dosing this evening. Ordered a random gentamicin level this evening to ensure when it is safe to redose (level <1) * Dosing based upon adjusted body weight since actual body weight is >/=1.2 x IBW (92 kg adjusted bw) * Would recommend maintaining trough level < 1 mcg/ml * Typically peak monitoring not routinely recommended for synergy, however would defer to outpatient provider following patient if necessary 04/25: * Gentamicin trough remains persistently elevated at 1.21. Dose reduction indicated. Will maintain interval but reduce dose by 20%. However, to ensure that therapeutic effect is still persistent, will also obtain a peak level tomorrow. 04/24: * Gentamicin trough slightly elevated at 1.29, compared to goal of less than 1 for synergy, but was a 7 hour level instead of an 8 hour level. No change to gentamicin dose for now. Will repeat trough tomorrow. 04/23: * Vancomycin and acyclovir discontinued by ID 04/22. Repeat blood cultures pending. Echocardiogram "There is focal thickening at the base of the posterior mitral valve leaflet. There is a 4mm mobile lesion attached to the base suggestive of vegetation". Transesophageal echocardiogram pending. Gentamicin started for gram positive synergy with ceftriaxone. 04/22: * 57 year old M receiving vanomcyin/ceftriaxone/acyclovir for treatment of Strep. agalactiae bacteremia/possible meningitis. Pertinent microbiologic data includes: 4/4 blood cultures with gram positive cocci in chains, Strep. agalactiae per culture. LP was performed this morning (post antibiotics) with negative biofire. ID is consulted and has seen the patient awaiting recommendations for possible de-escalation. Patient continues to be febrile with leukocytosis. Plan Gentamicin- gram positive synergy * Changing to 3 mg/kg/dose iv q 24 hours starting this evening Ceftriaxone- continue 2gm Q12H - per notes ID may change to Q24 hours on discharge Pharmacy will continue to follow and will adjust dose/frequency as necessary. Thank you. Pharmacy has transitioned to AUC monitoring for vancomycin. AUC/RASHEED is the preferred PK/PD target and is associated with decreased risk of nephrotoxicity compared to traditional trough targets.
--- NOTE | 2023-04-26 14:27 | XRay Report ---
XR chest 1V portable CLINICAL HISTORY: PICC tip location TECHNIQUE: Single frontal radiograph of the chest was obtained. Comparison: Comparison is made to chest radiograph 04/23/2023 FINDINGS: Right PICC is seen with the tip in the lower SVC. The cardiomediastinal silhouette is normal. The kendell gs are clear. No evidence of pleural effusion or pneumothorax. IMPRESSION: Interval placement of a PICC with its tip in satisfactory position. No pneumothorax. ACT 112: Negative or not required by law. Electronically signed by: Magen Fernandez M.D. 04/26/2023 2:26 PM
--- NOTE | 2023-04-26 18:14 | Hospitalist Progress Note ---
Date of Service April 26, 2023 Assessment & Plan (1) Acute confusion: Plan: Management of acute situation this afternoon The father of the patient is actively dying under hospice care at home with all other family members beside the father. The father wanted to see Walter Rodriguez this afternoon and the patient himself wanted to go in spite of certain restriction due to antibiotic administration and follow-up care This case was discussed with the pharmacist, manager flight operations, nursing press supervisor and ultimately he was discharged home this evening He will have low antibiotic level in the blood specially gentamicin for a few hours before he can get the next dose tomorrow morning He is aware about the situation and wanted to take the risk to see his dying father for the last time He was discharged home in stable medical condition and he will be back to [facility] for antibiotic administration tomorrow around 12 to 2 for the next 2 days After that he will have antibiotic administered through home health nurse to finish the course 57-year-old male with past med significant for type 2 diabetes, history of history of diabetic foot ulcer hyperlipidemia, obstructive sleep apnea on CPAP, chronic rhinitis ,history of herniated nucleus pulposus C6-C7 right side, his tory of herpes zoster recently quit chewing tobacco per was brought in because of fever and confusion. Associated with headache, aches and pains all over the body, so waiting but denies any nausea vomiting, photophobia or any neck stiffness Suspected to be acute meningitis and is status post LP which remains unremarkable He was started with intravenous acyclovir, vancomycin and ceftriaxone Appreciate ID input and recommendation-we will stop intravenous vancomycin and acyclovir and get an echocardiogram We will continue intravenous ceftriaxone for now and await blood cultures and serology back He has been feeling better but is still having fever and chills No more acute confusion Clinically much better today without any more fever and no chills and the confusion is cleared No more fever and or chills No more confusion which has been cleared for the last few days or so Gram-positive bacteremia 2 out of 2 grew group B beta streptococci and 1 out of 2 grew Staph aureus Repeat 2 sets of blood culture are negative GORDON was negative for any endocarditis We will communicate with ID for further input regarding antibiotic Contacted with ID specialist with results of blood cultures and GORDON Advised to have treated as infective endocarditis with ceftriaxone 2 g IV daily for 6 weeks from first negative blood culture and IV gentamicin about 3 mg/kg body weight daily for 2 weeks starting from first negative blood culture that is 04/23/2023 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 There is for a 4 mm mobile lesion at rest to the base suggestive of vegetation. There is mild mitral regurgitation The case was discussed with ID specialist Gentamicin was added on top of ceftriaxone from today Repeat blood cultures taken GORDON has been ordered to rule out any further vegetations and complication of endocarditis Repeat blood cultures have been negative so far Clinically much better and will continue current antibiotics Appreciate cardiology consult and finishing GORDON Advised to have treated as infective endocarditis with ceftriaxone 2 g IV daily for 6 weeks from first negative blood culture and IV gentamicin about 3 mg/kg body weight daily for 2 weeks starting from first negative blood culture that is 04/23/2023 Noted to have desaturation earlier this morning Received intravenous fluid since admission with a positive balance of 8000 mL Chest x-ray did show pulmonary edema IV fluid was stopped and he was given 60 of Lasix intravenously We will monitor Again clinically much better and has been saturating normally on room air Chest remains clear on examination Saturating normally on room air- likely discharge tomorrow (2) Fever: Plan: As above- Denies any problem with urine or bowel habit. No cough and no phlegm and shortness of breath CT of the head, chest x-ray and UA are unremarkable IV fluids NS at the rate of 200 mL per hour IV Tylenol as needed Close monitor-as above Diabetes Hold metformin Insulin sliding scale We will monitor blood sugars Hyperlipidemia Started on statin couple of days ago as per we will hold for now. -Sleep apnea CPAP nightly We will follow ABG-is ok Has been saturating normally on room air Hypomagnesia replaced follow labs. Alcoholism Today morning 04/22/23 patient was feeling better and told he drinks 10-15 beers daily. Ordered banana bag, iv thiamine, folic acid and mvi gabapentin alcohol withdrawal protocol with iv ativan prn close monitor. No signs and or symptoms of withdrawal DVT prophylaxis SCDs for now Disposition Telemetry floor Full code Admission and Anticipated Discharge Date Admission Date: April 21, 2023 Subjective 05/02/2023 The patient was seen and examined in telemetry unit He has been feeling better and the confusion is almost gone Still has fever and chills-minimal headache but no neck is stiffness and/or visual symptoms/photophobia no nausea no vomiting 04/23/2023 The patient was seen and examined in telemetry unit He has been feeling much better today but is still having fever and sweating No more confusion Denies any chest pain and/or palpitation 04/24/2023 The patient was seen and examined in telemetry unit He has been feeling much better today Did not have any more fever and or chills and he has been saturating normally on room air Clinically much better 04/25/2023 The patient was seen and examined in telemetry unit He has been feeling much better today and denies any more fever and or chills Is status post GORDON and that did not show any evidence of endocarditis 04/26/2023 The patient was seen and examined in telemetry unit He has been feeling much better and denies any significant symptoms He needs to go home this afternoon as this father is dying under hospice care at home He wanted to be discharged at any cost Review of Systems Review of Systems: All systems reviewed and are unremarkable except as noted below Physical Exam Physical Exam: Lying in bed comfortably Constitutional: well developed, well nourished and + obese; not ill appearing Eyes: PERRL, conjunctivae normal, anicteric sclerae ENMT: external ear and nose normal, oropharynx normal Neck: trachea midline, no thyromegaly Respiratory: no respiratory distress (Minimal distress at rest) Auscultation: lungs clear to auscultation bilaterally, + diminished lung sounds and + crackles (Crackles bibasally) Cardiovascular: Rate/Rhythm: regular rate and regular rhythm; not tachycardic Heart Sounds: normal S1 and normal S2; no murmur Extremities: + edema (Trace edema bilaterally) Gastrointestinal (Abdomen): Inspection/Auscultation: + abdomen distended (Soft) and normal bowel sounds Percussion/Palpation: abdomen soft; abdomen nontender Neurologic: normal touch/pain/proprioception and moves all extremities; no focal motor deficits and not confused Psychiatric: A+Ox3, euthymic affect Lymphatic: no cervical or axillary lymphadenopathy Results & Data Results & Data Vital Signs (Past 12 Hours) Vital Signs Temp Pulse Pulse Resp BP BP Pulse Ox 04/26/23 15:12 36.7 C 60 18 115/64 144/79 H 94 04/26/23 11:18 36.7 C 60 18 115/64 94 04/26/23 07:45 63 04/26/23 07:30 36.5 C 67 18 136/82 95 O2 Del Method 04/26/23 15:12 04/26/23 11:18 Room Air 04/26/23 07:45 04/26/23 07:30 Room Air Laboratory Results Short CBC 04/26/23 Range/Units 03:27 WBC 8.53 (4.8-10.8) K/ul Hgb 11.9 L (14.0-18.0) g/dl Hct 35.3 L (42.0-52.0) % Plt Count 173 (130-400) K/uL BMP 04/26/23 03:27 Sodium 136 Potassium 4.1 Chloride 102 Carbon Dioxide 27 BUN 12 Creatinine 0.99 Glucose 146 H Calcium 8.4 L (2) Fever Fever type: due to other condition Qualified Code(s): R50.81 - Fever presenting with conditions classified elsewhere
--- NOTE | 2023-04-26 18:16 | Discharge Summary ---
Date of Service April 26, 2023 Admission HPI Per Admitting Provider 57-year-old male with past med significant for type 2 diabetes, history of history of diabetic foot ulcer, hyperlipidemia, obstructive sleep apnea on CPAP chronic rhinitis ,history of herniated nucleus pulposus C6-C7 right side history of herpes zoster recently quit chewing tobacco as per was brought in because of fever and confusion. Patient was having high fever at his workplace coming home he was sleeping mostly, seems imbalance while walking and confused so brought him here. For the ER physician patient able to tell his name and "seemed oriented but later seems to be confused. Could only tell his name but could not any answer any other questions appropriately. But again later for the ER physician he answered simple questions. Denies any headache. Able to flex his neck. Could not get any history from the patient. As per his he was doing fine until this happened. No complaints of chest pain or shortness of breath or back pain or headache. No nausea vomiting. No diarrhea. He did not eat today. Past medical history. As mentioned above Past surgical history. Colonoscopy. Vasectomy Social history. . Used to chew tobacco. Alcohol use 8 to 10/day as per epic but states does not drink regularly. No drug use as per Family history. Mother had breast cancer. Sister has skin cancer. Admission Exam Per Admitting Provider Physical Exam: General- alert and awake and oriented to name only. Somewhat lethargic. Head- atraumatic Eyes- PERRL. ENT- oropharynx clear Neck- supple, no JVD. Lungs- clear to auscultation No wheezing or crackles. Heart- regular rate and rhythm; no murmur, no gallop. Abdomen- normal bowel sounds, soft, nontender, no distension. Extremities- no pretibial edema, no erythema seen. Neuro- alert, oriented x 1;somewhat lethargic. PERRL, no facial palsy; no dysarthria;moves extremities. Skin- warm & dry Principal Diagnosis GBS Bacteremia,Endocarditis Discharge Exam Lying in bed comfortably Constitutional well developed, well nourished and + obese; not ill appearing Eyes PERRL, conjunctivae normal, anicteric sclerae ENMT external ear and nose normal, oropharynx normal Neck trachea midline, no thyromegaly Respiratory no respiratory distress (Minimal distress at rest) Auscultation: lungs clear to auscultation bilaterally, + diminished lung sounds and + crackles (Crackles bibasally) Cardiovascular Rate/Rhythm: regular rate and regular rhythm; not tachycardic Heart Sounds: normal S1 and normal S2; no murmur Extremities: + edema (Trace edema bilaterally) Gastrointestinal (Abdomen) Inspection/Auscultation: + abdomen distended (Soft) and normal bowel sounds Percussion/Palpation: abdomen soft; abdomen nontender Neurologic normal touch/pain/proprioception and moves all extremities; no focal motor deficits and not confused Psychiatric A+Ox3, euthymic affect Lymphatic no cervical or axillary lymphadenopathy Discharge Data Allergies Allergy/AdvReac Type Severity Reaction Status Date / Time No Known Allergies Allergy Unverified 04/21/23 21:41 Consultations 04/21/23 22:45 ED Decision to Admit Stat 04/22/23 08:00 Consult Infectious Diseases Routine 04/23/23 11:26 Consult Anesthesiology Routine 04/25/23 07:23 Consult Cardiology Routine Ordered Studies 04/21/23 23:35 CT head/brain wo con Stat 04/22/23 09:00 IR lumbar puncture diagnostic Routine Hospital Course (1) Acute confusion: Management of acute situation this afternoon The father of the patient is actively dying under hospice care at home with all other family members beside the father. The father wanted to see Walter Rodriguez this afternoon and the patient himself wanted to go in spite of certain restriction due to antibiotic administration and follow-up care This case was discussed with the pharmacist, recruitment advertising manager, nursing electrical plumbing supervisor and ultimately he was discharged home this evening He will have low antibiotic level in the blood specially gentamicin for a few hours before he can get the next dose tomorrow morning He is aware about the situation and wanted to take the risk to see his dying father for the last time He was discharged home in stable medical condition and he will be back to [facility] for antibiotic administration tomorrow around 12 to 2 for the next 2 days After that he will have antibiotic administered through home health nurse to finish the course 57-year-old male with past med significant for type 2 diabetes, history of history of diabetic foot ulcer hyperlipidemia, obstructive sleep apnea on CPAP, chronic rhinitis ,history of herniated nucleus pulposus C6-C7 right side, history of herpes zoster recently quit chewing tobacco per was brought in because of fever and confusion. Associated with headache, aches and pains all over the body, so waiting but denies any nausea vomiting, photophobia or any neck stiffness Suspected to be acute meningitis and is status post LP which remains unremarkable He was started with intravenous acyclovir, vancomycin and ceftriaxone Appreciate ID input and recommendation-we will stop intravenous vancomycin and acyclovir and get an echocardiogram We will continue intravenous ceftriaxone for now and await blood cultures and serology back He has been feeling better but is still having fever and chills No more acute confusion Clinically much better today without any more fever and no chills and the confusion is cleared No more fever and or chills No more confusion which has been cleared for the last few days or so Gram-positive bacteremia 2 out of 2 grew group B beta streptococci and 1 out of 2 grew Staph aureus Repeat 2 sets of blood culture are negative GORDON was negative for any endocarditis We will communicate with ID for further input regarding antibiotic Contacted with ID specialist with results of blood cultures and GORDON Advised to have treated as infective endocarditis with ceftriaxone 2 g IV daily for 6 weeks from first negative blood culture and IV gentamicin about 3 mg/kg body weight daily for 2 weeks starting from first negative blood culture that is 04/23/2023 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 There is for a 4 mm mobile lesion at rest to the base suggestive of vegetation. There is mild mitral regurgitation The case was discussed with ID specialist Gentamicin was added on top of ceftriaxone from today Repeat blood cultures taken GORDON has been ordered to rule out any further vegetations and complication of endocarditis Repeat blood cultures have been negative so far Clinically much better and will continue current antibiotics Appreciate cardiology consult and finishing GORDON Advised to have treated as infective endocarditis with ceftriaxone 2 g IV daily for 6 weeks from first negative blood culture and IV gentamicin about 3 mg/kg body weight daily for 2 weeks starting from first negative blood culture that is 04/23/2023 Noted to have desaturation earlier this morning Received intravenous fluid since admission with a positive balance of 8000 mL Chest x-ray did show pulmonary edema IV fluid was stopped and he was given 60 of Lasix intravenously We will monitor Again clinically much better and has been saturating normally on room air Chest remains clear on examination Saturating normally on room air- likely discharge tomorrow (2) Fever: As above- Denies any problem with urine or bowel habit. No cough and no phlegm and shortness of breath CT of the head, chest x-ray and UA are unremarkable IV fluids NS at the rate of 200 mL per hour IV Tylenol as needed Close monitor-as above Diabetes Hold metformin Insulin sliding scale We will monitor blood sugars Hyperlipidemia Started on statin couple of days ago as per we will hold for now. -Sleep apnea CPAP nightly We will follow ABG-is ok Has been saturating normally on room air Hypomagnesia replaced follow labs. Alcoholism Today morning 04/22/23 patient was feeling better and told he drinks 10-15 beers daily. Ordered banana bag, iv thiamine, folic acid and mvi gabapentin alcohol withdrawal protocol with iv ativan prn close monitor. No signs and or symptoms of withdrawal DVT prophylaxis SCDs for now Disposition Telemetry floor Full code Total Time Total Time Spent Total Time Spent (In Minutes): 45 minutes Discharge Plan Discharge Items Patient Disposition: Home - Home Health Services Reason For Visit: FEVER, CONFUSION Discharge Diagnosis: GBS Bacteremia,Endocarditis Condition on Discharge: Fair Activity: Resume your previous activity Non-emergency contact: Primary Care Provider Call non-emergency contact if: you have any medication questions and your symptoms worsen Follow-up/Referrals: Erickson Yoon MD [Primary Care Provider] - (Date & Time 05/03/2023 9:00 AM Provider [facility] ) Addtl Attending Provider Instructions: Please come to [facility] for IV antibiotics for tomorrow and Day after-will let you know the timing Will need IV Ceftriaxone 2 gm /day for 6 weeks from 03/23 and IV Gentamycin 275mg/day for 2 weeks from 03/23 Pending Studies at Discharge: No Stand-Alone Forms: My [employer], Smoking Cessation Medications and DC Order Prescriptions: Continued metformin 1,000 mg tablet 1,000 mg PO BID montelukast 10 mg tablet 10 mg PO QAM rosuvastatin 20 mg tablet 20 mg PO DAILY Rx Instructions: Patient staes is not giung to take anymore fexofenadine 60 mg Tablet 60 mg PO QAM PRN (Reason: seasonal allergies) Discharge Orders: Discharge Order (Routine); Ordered 04/26/23 Ordered By: No Alberto/Other Patient Handouts: Managing Type 2 Diabetes Admission Data Admit Date/Time: 04/21/23 23:47 Attending Provider: No Meadows Admit Provider: Tomer Musa Primary Care Provider: Erickson Yoon Other Providers: Tomer Musa; Andrew Damian; Alsie Correa; Anival Briscoe I.; David Jaime II; Tran Spencer; Hawk Godinez; Melvin Mckeon; Deepthi Chase; Rosemary Sheth; Christy Hicks; Dahlia Trimble; Liliana Ibanez; Dillon Bowie; William Mckay; Nate Kapadia; Dl Sands; Karen Sands; Jakub New; Elina Riley; Abad Strauss; Fantasma Frazier; Lowell García; Chris Nguyen; Janna Romero; Hawk Carney; Bibi Kincaid; Hedy Carney; Arian Hubbard; Kathy Dubose; Lamonte Piper; Thao Wolf; Miriam Gordon; Lencho Ha; Kacey Guillaume A; Radha Leblanc; Pia Walton; Katy العراقي; Elton العراقي V; Teo Arenas; Christy Cintron; Khoi Gross; Lakia Lincoln; Elton Morfin; Pedro Pablo Romero; Magen Johnson; Whitney Wen; Petra Bourne; Elton Barboza; Brennen Jean Baptiste; Nita Garnica; Prashant Hernandez; Sarah Camarena; Whitney Vega; Chapito Bishop; Walter Nguyen; Tammy Terry; Katie Ford; Ezra Simmons; Rober Shea; Dillon Beyer Jr; Tabitha Francois; Mari Nieves; Claire Dumont; Lencho Avendaño; Magi Noguera; Dl Simons; Isaak Paris I.; Marbella Wheeler; Mari Eli; Isaac Fernandes; Constantino Jain; Edu Zendejas; Cristian Morales V.; Dany Watkins; Francois Valenzuela; Gregoria Mccormick; Callie Rojas; Eugenie Echeverria; Kristina Linares; [facility] Other Interventions: Discharge Summary Assessment (RN) Last Done: 04/26/23 15:12
[2023-04-26] MEDS ORDERED: GENTAMICIN SULFATE 100 MG in DEXTROSE 5% 100 ML IV SCH (19:00)
[2023-04-26] MEDS ORDERED: DEXTROSE 5% IV SCH (19:00)
[2023-04-26] MEDS ORDERED: GENTAMICIN SULFATE IV SCH (19:00)
[2023-04-27 22:07] LABS: Ehrlichia chaff DNA Bld Negative (Negative)
== END 2023-04-26 15:20 | disposition home health service (06) | DRG 288 ==
LOC: ED 20:45 → EDINP 23:47 → 2S 04-22 13:12

== ENCOUNTER 2025-03-02 10:49 | Inpatient (IN) ==
--- NOTE | 2025-03-02 11:12 | Emergency Department Note ---
Impression & Plan Cellulitis of left leg, Leukocytosis, History of endocarditis, Left leg swelling ED Provider Note NAME: BLANCA VAZQUEZ AGE: 59 SEX: M : 1965 ARRIVES VIA: Walk-In INFORMANT: Patient, ED PROVIDER(S): Victor Manuel Ferrera MD CHIEF COMPLAINT: Leg swelling, infection MEDICAL DECISION MAKING: Patient presents with the above. IV was established and blood work was obtained. Review of these prior history shows the patient does have prior history of infective endocarditis of blood cultures retained on procalcitonin patient was treated with IV empiric IV cefepime. Discussion with ED pharmacist stated that this would be appropriate coverage given prior history of group B strep. Blood work shows a white count of 20 with a hemoglobin 0.2 with a normal platelet count. The patient's kidney function is unremarkable. Mild hyperkalemia at 5.6. Magnesium 1.1. Procalcitonin is not elevated. Patient did have a DVT ultrasound on Wednesday which reportedly was negative. I was able to review this report which showed no evidence of DVT. I did speak the on-call hospital service MCKENNA Hagan and the patient was admitted by Dr. Meadows. Magnesium ordered by inpatient service. Discussion w/ other healthcare providers: None Prior /Outside records reviewed: None Differential diagnosis: Cellulitis, abscess, MRSA infection, DVT, necrotizing fasciitis, dermatitis, drug eruption, allergic reaction, as well as other pathologies were considered.] Diagnostics, as interpreted by me: ECG: Normal sinus rhythm, rate of 84, normal intervals, normal axis no ST elevations. Cardiac monitoring: An order was placed for continuous cardiac monitoring. The monitor shows a rate of 85 with sinus rhythm. Patient was placed on pulse oximetry Medical decision rules: None Imaging studies: None HPI: Patient presents due to concern for left lower extremity swelling and redness. The patient states that he noticed this on Wednesday and was empirically treated beginning with Keflex. He reports that he had a DVT ultrasound completed as an outpatient at [facility] on Wednesday which was negative. He feels as though the swelling and the redness have worsened. Patient reportedly did have an inpatient stay several years ago where they "did not know what was going on." He subsequently required admission. Review of the records showed the patient was treated for infective endocarditis at that time. Patient denies any chest pains or shortness of breath. No fevers or chills. Patient does chew tobacco. PAST MEDICAL HISTORY: See Below PAST SURGICAL HISTORY: See Below SOCIAL HISTORY: See Below HOME MEDICATIONS: See Below ALLERGIES: See Below VITALS: See Below PHYSICAL EXAMINATION: GENERAL: NAD, non-toxic. EYE EXAM: Normal conjunctiva. PERRL, no anisocoria and EOM's grossly intact w/o pain. OROPHARYNX: Moist mucus membranes, grossly normal dentition. NECK: Trachea midline, no stridor. LUNGS: Clear to auscultation. Normal chest wall mechanics. HEART: NSR, no MRG. ABDOMEN: Abdomen soft, non-tender, no masses, no rebound or guarding. BACK: No CVA TTP. SKIN: No rashes and no bruising. UPPER EXTREMITIES: Upper extremities are grossly normal. LOWER EXTREMITIES: Grossly normal, left greater than right lower extremity edema without calf pain, blanching erythema noted, no crepitus compartments are soft neurovascular intact distally with good pedal pulse in the left foot. NEURO EXAM: Awake and alert, follows commands, no obvious facial asymmetry, normal speech, moves all 4 extremities. Past Med/Surg History Problem List (Updated 03/02/25 @ 17:37 by Victor Manuel Ferrera MD) Left leg swelling (Acute) History of endocarditis (Acute) Leukocytosis (Acute) Cellulitis of left leg (Acute) Cellulitis Encounter for pre-operative examination EtOH dependence DORETHA (obstructive sleep apnea) CPAP Non-insulin treated type 2 diabetes mellitus Bacteremia due to group B Streptococcus Aseptic meningitis Acute confusion Fever (Acute) Hypomagnesemia (Acute) HLD (hyperlipidemia) Knee effusion, right Surgical History No pertinent past surgical history Social History Smoking Status: Never smoker Hx Alcohol Use: No Hx Substance Use: No Preferred Language: Belgian Communication Ability: Effective Hand Baseball Sewer Required: No Beliefs That Will Affect Care: Spiritual Current Living Situation: Spouse Feels Safe at Home: Yes Assistive Devices: CPAP Allergies Allergies Allergy/AdvReac Type Severity Reaction Status Date / Time No Known Allergies Allergy Verified 03/02/25 13:05 Home Meds Home Medications Medication Instructions Recorded Confirmed metformin 1,000 mg tablet 1,000 mg PO BID 10/01/20 03/02/25 montelukast 10 mg tablet 10 mg PO QAM PRN Allergy Symptoms 04/21/23 03/02/25 cephalexin 500 mg capsule 500 mg PO QID 03/02/25 03/02/25 fexofenadine 180 mg tablet 180 mg PO DAILY PRN Allergy 03/02/25 03/02/25 Symptoms fluticasone propionate 50 2 spray intranasal DAILY PRN 03/02/25 03/02/25 mcg/actuation nasal Allergy Symptoms spray,suspension olmesartan 20 mg tablet 20 mg PO QAM 03/02/25 03/02/25 sildenafil (pulm.hypertension) 20 50 - 100 mg PO DAILY PRN Erectile 03/02/25 03/02/25 mg tablet Dysfunction Results & Data (ED) Vital Signs Vital Signs - 24 hr 03/02/25 11:02 03/02/25 11:52 03/02/25 12:03 Temperature 36.7 C Temperature Source Temporal Artery Scan Pulse Rate 96 H 82 Pulse Rate from SpO2 Sensor Respiratory Rate 18 Respiratory Effort / Characteristics Non-Labored Spontaneous Respiratory Depth Normal Pulse Oximetry 94 92 Oxygen Delivery Method Room Air Room Air Sepsis Recent Fever Within 48 Hours No Sepsis New/Unexplained Change in Mental Status No Sepsis Action Taken by Nursing No Action Required 03/02/25 12:09 03/02/25 12:36 03/02/25 12:42 Temperature Temperature Source Pulse Rate 81 85 84 Pulse Rate from SpO2 Sensor 81 86 83 Respiratory Rate 23 27 H 31 H Respiratory Effort / Characteristics Respiratory Depth Pulse Oximetry 92 93 91 Oxygen Delivery Method Sepsis Recent Fever Within 48 Hours Sepsis New/Unexplained Change in Mental Status Sepsis Action Taken by Nursing 03/02/25 12:51 Temperature Temperature Source Pulse Rate 88 Pulse Rate from SpO2 Sensor 86 Respiratory Rate 25 H Respiratory Effort / Characteristics Respiratory Depth Pulse Oximetry 92 Oxygen Delivery Method Sepsis Recent Fever Within 48 Hours Sepsis New/Unexplained Change in Mental Status Sepsis Action Taken by [facility] Medications Current Medication List: was personally reviewed by me Laboratory Data Attestation: I reviewed the patient's lab results. 03/02/25 11:50 03/02/25 15:15 Lab Results 03/02/25 Range/Units 11:50 WBC 20.54 H (4.8-10.8) K/ul RBC 3.78 L (4.70-6.10) M/uL Hgb 11.2 L (14.0-18.0) g/dl Hct 33.0 L (42.0-52.0) % MCV 87.3 (80.0-100.0) fL MCH 29.6 (25.0-34.0) pg MCHC 33.9 (32.0-36.0) g/dL RDW Std Deviation 43.0 (36.4-46.3) fL RDW Coeff of Pranay 13.5 (11.5-14.5) % Plt Count 238 (130-400) K/uL MPV 8.7 L (9.4-12.4) fL Immature Gran % (Auto) 1.0 % Neut % (Auto) 84.8 % Lymph % (Auto) 5.0 % [place] % (Auto) 8.2 % Eos % (Auto) 0.5 % Baso % (Auto) 0.5 % Neut # (Auto) 17.42 H (1.40-6.50) K/uL Lymph # (Auto) 1.02 L (1.20-3.40) K/uL [place] # (Auto) 1.68 H (0.11-0.59) K/uL Eos # (Auto) 0.11 (0.00-0.50) K/uL Baso # (Auto) 0.11 (0.00-0.20) K/uL Immature Gran # (Auto) 0.20 (0.01-0.20) K/uL Sodium 134 L (136-145) mmol/L Potassium 5.6 H (3.5-5.1) mmol/L Chloride 102 (98-107) mmol/L Carbon Dioxide 24 (21-32) mmol/L Anion Gap 8 (3-11) BUN 19 (6-23) mg/dl Creatinine 1.40 (0.6-1.4) mg/dl Est Cr Clr Drug Dosing 70.8 ml/min eGFR 57.90 BUN/Creatinine Ratio 13.6 (10-20) Glucose 93 (70-99(Fasting)) mg/dl Calcium 9.6 (8.6-10.3) mg/dl Magnesium 1.1 L (1.7-2.4) mg/dl Total Bilirubin 0.6 (0.2-1.0) mg/dl AST 26 (13-39) U/L ALT 24 (7-52) U/L Alkaline Phosphatase 65 (34-104) U/L Total Protein 7.8 (6.0-8.3) gm/dl Albumin 4.1 (3.4-5.0) gm/dl Globulin 3.7 (2.5-4.0) gm/dl Albumin/Globulin Ratio 1.1 (0.9-2) Procalcitonin 0.15 (0-0.5) ng/ml Administered Medications Magnesium Sulfate/Dextrose (Magnesium Sulfate / D5w) 1 gm in 100 mls @ 50 mls/hr IV Q2H MARK Stop: 03/02/25 23:44 Last Admin: 03/02/25 15:30 Dose: 50 mls/hr Documented By: KATIE Vancomycin HCl 2,250 mg/ (Sodium Chloride) 545 mls @ 200 mls/hr IV ONE ONE Stop: 03/02/25 18:43 Last Admin: 03/02/25 16:12 Dose: 200 mls/hr Documented By: KATIE Insulin Aspart (Insulin Aspart Per Unit Charge) 0 units SC ACHS MARK Stop: 04/01/25 16:29 Last Admin: 03/02/25 15:55 Dose: Not Given Documented By: KATIE Discontinued Medications Cefepime HCl (Maxipime 2000mg) 2,000 mg in 20 mls @ 5 mls/min IV NOW STA; Protocol Stop: 03/02/25 11:28 Last Admin: 03/02/25 11:54 Dose: 5 mls/min Documented By: HARDY Discharge Plan Visit Data Chief Complaint: Leg Injury/Pain Stated Complaint: CELLULITIS, L LEG ED Provider: Victor Manuel Ferrera Discharge Problem: Cellulitis of left leg, Leukocytosis, History of endocarditis, Left leg swelling Patient Disposition: Admitted As Inpatient Condition: Good Discharge Instructions Interventions: ED Discharge Assessment Last Done: 03/02/25 15:35 Discharge Problem: Leukocytosis Qualifiers: Leukocytosis type: unspecified Qualified Code(s): D72.829 - Elevated white blood cell count, unspecified
[2025-03-02] MEDS: CEFEPIME 2000MG 2,000 MG/20 ML SYR IV STA (11:54)
[2025-03-02 12:16] LABS: Hematocrit (blood only) 33.0 % (42.0-52.0); Hemoglobin 11.2 g/dl (14.0-18.0); Immature Granulocytes # (auto) 0.20 K/uL (0.01-0.20); Immature Granulocytes % (auto) 1.0 %; Mean Corpuscular Hemoglobin 29.6 pg (25.0-34.0); Mean Corpuscular Volume 87.3 fL (80.0-100.0); Platelet Count 238 K/uL (130-400); RDW Standard Deviation 43.0 fL (36.4-46.3); Red Blood Count 3.78 M/uL (4.70-6.10); White Blood Count 20.54 K/ul (4.8-10.8)
[2025-03-02 12:33] LABS: Alanine Aminotransferase 24.0 U/L (7-52); Albumin Globulin Ratio 1.1 (0.9-2); Alkaline Phosphatase 65.0 U/L (34-104); Anion Gap 8.0 (3-11); Bilirubin,Total 0.6 mg/dl (0.2-1.0); Blood Urea Nitrogen 19.0 mg/dl (6-23); Calcium 9.6 mg/dl (8.6-10.3); Carbon Dioxide 24.0 mmol/L (21-32); Chloride 102.0 mmol/L (98-107); Creatinine Clr Calc Pharmacy 70.8 ml/min; Globulin 3.7 gm/dl (2.5-4.0); Glucose 93.0 mg/dl (70-99(Fasting)); Magnesium 1.1 mg/dl (1.7-2.4); Potassium 5.6 mmol/L (3.5-5.1); Sodium 134.0 mmol/L (136-145); Total Protein 7.8 gm/dl (6.0-8.3)
--- NOTE | 2025-03-02 12:55 | History & Physical Report ---
Date of Service March 02, 2025 Assessment & Plan (1) Cellulitis: Plan: Patient is a 59 year old M with a past medical history of HTN, DM Type II, microalbuminemia, HLD, DORETHA on CPAP, Alcohol and Tobacco use presenting with left leg cellulitis. Symptoms began ~10-14 days ago with swelling and redness; no associated injury, bug bite, laceration. Was using compression stocking without relief. Went to PCP this Wednesday and prescribed Keflex x 7 day course. Doppler ultrasound of left leg negative for DVT, completed outpatient 3 days ago. Cellulitis without clinical improvement on antibiotics. Patient with a history of Group B beta strep bacteremia in Apr 2023; admitted to [facility] for treatment. Echo from admission showed-LV is normal in size, mild concentric LVH, LV wall motion is normal, EF 55 to 60%, focal thickening at the base of the noncoronary gasp leaflet of the aortic valve, mobile vegetation not visualized, focal thickening at the base of the posterior mitral valve leaflet; 4 mm mobile lesion at rest to the base suggestive of vegetation. There is mild mitral regurgitation. Patient was treated for infective endocarditis with ceftriaxone 2 g IV daily x 6 weeks and IV gentamicin about x 2 weeks via PICC line. #Cellulitis #H/O Group B Strep Bacteremia 07/16 RLE cellulitis 04/2023 * Admit to Med Surg for additional management with IV antibiotics * LLE cellulitis w/ swelling, mild erythema, no drainage, no wound, fevers x 1 day; failed outpatient antibiotics w/ Keflex started on 02/26 * Venous Doppler LLE outpatient neg DVT-> Will obtain arterial doppler of LLE today-ordered * WBC 20K-> Cefepime started in ED; Blood cultures pending * MRSA screen ordered * Continue Cefepime while inpatient and start empiric Vanco- consult ordered * Suspect deep leg infection with clinical concern for compartment syndrome-> MRI left leg w/o contrast ordered- results pending #Hypomagnesemia * Mag 1.1 in ED-> replacement 1 gm x 5 bags ordered * EKG w/ NSR, vent rate 84 bpm, and QTc 404. * Will check Mag with AM labs #Hypertension * BP Goal < 140/90 * BP 140-155/80's while here * Continue home olmesartan and trend BP's * Borderline renal functioning w/ history microalbuminuria, Creatinine 1.4 today-> Strict BP control needed #Type 2 Diabetes Mellitus, non-insulin dependent * A1c outpatient 6.4%; will update with AM labs * Hold home metformin 1000 mg twice daily * SSI while inpatient-> adjust as needed * Accuchecks ACHS DVT Ppx: Heparin Code status: Full code PCP: Dr. Victor Manuel Sharp Dispo: Admit Patient seen in collaboration with Dr. Meadows. Please see addendum.I spent a total of 60 minutes coordinating, documenting and providing care for this patient excluding time spent in the performance of separately billed services or time spent by another provider/QHP. (2) DORETHA (obstructive sleep apnea): (3) Non-insulin treated type 2 diabetes mellitus: (4) Hypomagnesemia: (5) HLD (hyperlipidemia): History of Present Illness Primary Care Provider: Victor Manuel Sharp MD Patient is a 59 year old M with a past medical history of HTN, DM Type II, microalbuminuria, HLD, DORETHA on CPAP, Alcohol and Tobacco use presenting with left leg cellulitis. Symptoms began ~10-14 days ago with swelling and redness; no associated injury, bug bite, laceration. Was using compression stocking with out relief. Went to PCP this Wednesday and prescribed Keflex x 7 day course. Doppler ultrasound of left leg negative for DVT, completed outpatient 3 days ago. Cellulitis without clinical improvement on antibiotics. Denies chills, weight loss, weakness, headache, cognitive changes, vision/hearing changes, chest pain, SOB, difficulty breathing, urinary concerns, N/V/D, joint swelling/pain, ambulation difficulty, skin lesions, bleeding, bruising. Patient with a history of Group B beta strep bacteremia in Apr 2023; admitted to [facility] for treatment. Echo from admission showed-LV is normal in size, mild concentric LVH, LV wall motion is normal, EF 55 to 60%, focal thickening at the base of the noncoronary gasp leaflet of the aortic valve, mobile vegetation not visualized, focal thickening at the base of the posterior mitral valve leaflet; 4 mm mobile lesion at rest to the base suggestive of vegetation. There is mild mitral regurgitation. Patient was treated for infective endocarditis with ceftriaxone 2 g IV daily x 6 weeks and IV gentamicin about x 2 weeks via PICC line. In the emergency department, patient was hemodynamically stable, afebrile, and without signs of sepsis. WBC elevated at 20.54. Blood cultures x 2 drawn. Cefepime started in the ED. No imaging was done in the ED and given the WBC count with 4 days of outpatient antibiotics, MRI w/o ordered. Results pending. Potassium elevated, asymptomatic. EKG w/ NSR, vent rate 84 bpm, and QTc 404. Repeat K+ ordered. Found to have hypomagnesemia with Mag 1.1. Replacement ordered 1gm x 5 bags. As per external chart review, patient was seen by PCP on 02/26/25 for a left leg swelling that was 7-10 days old at time of visit. Venous Doppler negative for DVT 3 days ago. Was prescribed Cephalexin x 7 days. History obtained primarily from the patient and via hospitalization record. The patient's family was at the bedside and assisted with history of present illness and med rec. External chart review obtained from [facility]. Allergies Allergy/AdvReac Type Severity Reaction Status Date / Time No Known Allergies Allergy Verified 03/02/25 13:05 Home Medications Medication Instructions Recorded Confirmed Type metformin 1,000 mg tablet 1,000 mg PO BID 10/01/20 03/02/25 History montelukast 10 mg tablet 10 mg PO QAM PRN Allergy Symptoms 04/21/23 03/02/25 History cephalexin 500 mg capsule 500 mg PO QID 03/02/25 03/02/25 History fexofenadine 180 mg tablet 180 mg PO DAILY PRN Allergy 03/02/25 03/02/25 History Symptoms fluticasone propionate 50 2 spray intranasal DAILY PRN 03/02/25 03/02/25 History mcg/actuation nasal Allergy Symptoms spray,suspension olmesartan 20 mg tablet 20 mg PO QAM 03/02/25 03/02/25 History sildenafil (pulm.hypertension) 20 50 - 100 mg PO DAILY PRN Erectile 03/02/25 03/02/25 History mg tablet Dysfunction Past Med/Surg History Problem List (Updated 03/02/25 @ 14:13 by Victor Manuel Ferrera MD) Leukocytosis (Acute) Cellulitis of left leg (Acute) Cellulitis Encounter for pre-operative examination EtOH dependence DORETHA (obstructive sleep apnea) CPAP Non-insulin treated type 2 diabetes mellitus Bacteremia due to group B Streptococcus Aseptic meningitis Acute confusion Fever (Acute) Hypomagnesemia (Acute) HLD (hyperlipidemia) Knee effusion, right Medical History EtOH dependence DORETHA (obstructive sleep apnea) CPAP Non-insulin treated type 2 diabetes mellitus Aseptic meningitis Bacteremia due to group B Streptococcus HLD (hyperlipidemia) Surgical History No pertinent past surgical history Social History Smoking Status: Never smoker Hx Alcohol Use: No Hx Substance Use: No Preferred Language: Welsh Communication Ability: Effective Preparation Plant Repairer Required: No Beliefs That Will Affect Care: Spiritual Current Living Situation: Spouse Feels Safe at Home: Yes Assistive Devices: CPAP Review of Systems Review of Systems: All systems reviewed & are unremarkable except as noted in HPI & below Physical Exam Physical Exam: VITALS: Reviewed. WEIGHT/BMI reviewed. GEN: Healthy appearing, well-developed, NAD. PSYCH: Good Judgment. AOx3. Normal memory, mood, and affect. HEENT -Head: NC/AT; -Eyes: PERRL, EOMI. No discharge or redn ess; -Ears: External ears are normal. -Nose: Normal nares. -Mouth and throat: MMM. Normal gums, muc doretha, palate,. Good dentition. NECK: Supple, with no masses. CV: RRR, no m/r/g. +LLE edema, pitting LUNGS: CTAB, no w/r/c. ABD: Soft, NT/ND, NBS, no masses or organomegaly. : N/A SKIN: Warm, well perfused. LLE with mild erythema, swelling, no open areas, no drainage MSK: No deformities, Normal gait. EXT: No clubbing, cyanosis, or edema. NEURO: Ambulating with no limitations. Normal muscle strength and tone. No focal deficits. Results & Data Results & Data Vital Signs (Past 12 Hours) Vital Signs Temp Pulse Resp Pulse Ox O2 Del Method 03/02/25 12:03 82 03/02/25 11:52 92 Room Air 03/02/25 11:02 36.7 C 96 H 18 94 Room Air Laboratory Results Short CBC 03/02/25 Range/Units 11:50 WBC 20.54 H (4.8-10.8) K/ul Hgb 11.2 L (14.0-18.0) g/dl Hct 33.0 L (42.0-52.0) % Plt Count 238 (130-400) K/uL BMP 03/02/25 11:50 Sodium 134 L Potassium 5.6 H Chloride 102 Carbon Dioxide 24 BUN 19 Creatinine 1.40 Glucose 93 Calcium 9.6 Liver Function 03/02/25 Range/Units 11:50 Total Bilirubin 0.6 (0.2-1.0) mg/dl AST 26 (13-39) U/L ALT 24 (7-52) U/L Alkaline Phosphatase 65 (34-104) U/L Albumin 4.1 (3.4-5.0) gm/dl Supervising Physician Co-Signing Physician Notes Attending addendum: The patient was seen and examined in the emergency room in presence of the He has been complaining of swelling and redness involving the left lower extremity for about 10 days. He was seen by his PCP 3 days ago and was given Keflex and also had ultrasound that did not show any DVTs No improvement for the last 3 days and also he developed fever this morning and came to the emergency room Left leg is red and swollen minimally tender and no definite breach of skin and apparently his white blood cell count was highly elevated at 20,000 On examination Lying in bed without any acute distress Afebrile now and is hemodynamically stable Chest was clear to auscultate bilaterally HeartS1-S2, regular Abdomenbenign Extremitiesswelling of the left lower extremity from just above the knee to the foot with minimal redness and tenderness. Peripheral pulses were decreased ,movement of the joints was not significantly painful His admission labs reviewedsignificant increase in white count of more than 20,000 and potassium 5.6 magnesium 1 point1.1. Has left leg cellulitis and needs to rule out early compartment syndrome Will get an MRI of the left lower leg and also arterial Doppler to assess circulation Failed outpatient treatment and will give cefepime and vancomycin empirically given the history of endocarditis in the past with leg cellulitis Will check MRSA screen if it is negative we will discontinue vancomycin Recheck potassium and if it is elevated will give medications to improve potassium now no evidence of any EKG abnormalities His other medical conditions remained stable as mentioned above and managed accordingly Agree with assessment and plan as outlined above by Eliz ANDRES and take the full responsibility of care in the hospital Dr Edgar Meadows
[2025-03-02] MEDS ORDERED: VANCOMYCIN CONSULT ACTIVE PRN (13:45)
--- NOTE | 2025-03-02 15:24 | Magnetic Resonance Report ---
MRI OF THE LEFT LOWER LEG WITHOUT CONTRAST CLINICAL HISTORY: Compartment syndrome. COMPARISON STUDY: Left tibia and fibula radiographs December 28, 2020. Left lower extremity venous Doppl er ultrasound March 28, 2021. TECHNIQUE: Utilizing a 3 Zenaida magnet and dedicated coil, multiplanar, multiecho imaging of the left lower leg and tibia and fibula was performed without intravenous contrast. FINDINGS: No marrow edema or marrow placement within the left tibia or fibula is identified. There is no evidence for acute osteomyelitis within the left tibia or fibula. There is moderate subcutaneous edema of the left lower leg. No fluid collection is identified on unenhanced examination. There is no fascial fluid. There is slight increased T2 signal within several muscles of the left lower leg, the medial and lateral heads of the gastrocnemius. The Achilles tendon is intact. A moderate-sized left knee joint effusion is partially imaged. There is a small popliteal cyst. The left knee is suboptimal ly assessed on this exam however there is evidence for a medial meniscal tear with extensive medial c ompartment chondrosis. There is at least moderate left knee osteoarthritis. IMPRESSION: 1. Moderate subcutaneous edema of the left lower leg suggestive of cellulitis. No fluid collection to suggest abscess on unenhanced exam. 2. No evidence for acute osteomyelitis within the left tibia or fibula. 3. Slight increased T2 signal within several muscles of the left lower leg, including the medial and lateral heads of the gastrocnemius. This is nonspecific finding of questionable significance. This ma y represent mild muscle strain or a nonspecific myositis. Although not highly suspicious, compartment syndrome cannot be excluded by imaging and clinical follow-up is recommended. ACT 112: Negative or not required by law. Electronically signed by: Julio C Ramirez M.D. 03/02/2025 3:23 PM
[2025-03-02] MEDS: MAGNESIUM SULFATE / D5W 1 GM/100 ML BAG IV SCH (15:30)
[2025-03-02] MEDS ORDERED: GLUCOSE 10 TAB/TUBE PO PRN (15:34)
[2025-03-02] MEDS ORDERED: DEXTROSE 50% 50 ML SYRINGE IV PRN (15:34)
[2025-03-02] MEDS ORDERED: ALUMINUM/MAGNESIUM SUSP 30 ML UDC PO PRN (15:34)
[2025-03-02] MEDS ORDERED: MAGNESIUM HYDROXIDE SUSP 30 ML UDC PO PRN (15:34)
[2025-03-02] MEDS ORDERED: GLUCOSE 40% GEL 15 GM TUBE PO PRN (15:34)
[2025-03-02] MEDS ORDERED: GLUCAGON FOR INJ 1 MG VIAL SQ PRN (15:34)
[2025-03-02] MEDS ORDERED: CARBOHYDRATES FOR HYPOGLYCEMIA PO PRN (15:34)
[2025-03-02] MEDS ORDERED: ACETAMINOPHEN 325 MG TAB PO PRN (15:34)
[2025-03-02] MEDS ORDERED: ONDANSETRON INJ 2 MG/ML 2 ML VIAL IV PRN (15:34)
[2025-03-02] MEDS ORDERED: POLYETHYLENE (MIRALAX) 17 GM PACK PO PRN (15:34)
[2025-03-02] MEDS: INSULIN ASPART PER UNIT CHARGE SC SCH (15:55)
[2025-03-02] MEDS: VANCOMYCIN HCL 2,250 MG in SODIUM CHLORIDE 0.9% 500 ML IV ONE (16:12)
[2025-03-02] MEDS: CEFEPIME 2000MG 2,000 MG/20 ML SYR IV SCH (20:58)
--- NOTE | 2025-03-02 21:16 | Ultrasound Report ---
Exam(s): US ARTERIAL LEFT LOWER EXTREMITY EXAM: US Duplex Left Lower Extremity Arteries CLINICAL HISTORY: Reason for exam: compartment syndrome. TECHNIQUE: Real-time duplex ultrasound scan of the left lower extremity arteries integrating B-mode two-dimensional vascular structure, Doppler spectral analysis and color flow Doppler imaging. COMPARISON: No relevant prior studies available. FINDINGS: There is minimal scattered calcified atherosclerotic plaque. Common femoral artery: 174 cm/sec, triphasic. Deep femoral artery: 97 cm/sec, triphasic. Proximal femoral artery: 135 cm/sec, triphasic. Mid femoral artery: 187 cm/sec, triphasic. Distal femoral artery: 143 cm/sec, triphasic. Popliteal artery: 159 cm/sec, triphasic. Anterior tibial artery: 166 cm/sec, triphasic proximally, monophasic distally. Posterior tibial artery: 124 cm/sec, monophasic. Peroneal artery: 131 cm/sec, monophasic. Dorsalis pedis artery: 112 cm/sec, triphasic. IMPRESSION: 1. No occlusion in the left lower extremity artery. 2. Some monophasic waveforms noted in the calf arteries. 3. Mild elevations in peak systolic velocity at the level of the common femoral artery, mid femoral artery, popliteal artery, and anterior tibial artery. By velocity parameters, these findings raise the possibility of 30-49% stenoses at these levels. Electronically signed by: Ludmila Brown M.D. 03/02/25 21:15 PM
[2025-03-02] MEDS: HEPARIN SOD 5,000 UNIT/0.5 ML VIAL SQ SCH (22:19)
--- NOTE | 2025-03-02 22:41 | Communication Note ---
Date of Service: March 02, 2025 Patient told RN that he "usually drinks 15 beers/day on weekdays and really ramps it up on the weekends. Last drink was yesterday.." AP Alcohol abuse DENZEL S at risk protocol, DT precautions
[2025-03-02] MEDS: THIAMINE HCL 100 MG in SYRINGE 9 ML IV ONE (22:58)
[2025-03-03 00:08] VITALS: RESP 18
[2025-03-03] MEDS: VANCOMYCIN HCL 1,500 MG in SODIUM CHLORIDE 0.9% 500 ML IV SCH (05:46)
--- NOTE | 2025-03-03 06:04 | Electrocardiogram Report ---
Test Reason : Blood Pressure : */* mmHG Vent. Rate : 84 BPM Atrial Rate : 84 BPM P-R Int : 166 ms QRS Dur : 86 ms QT Int : 342 ms P-R-T Axes : 30 35 36 degrees QTcB Int : 404 ms Normal sinus rhythm Normal ECG When compared with ECG of 21-Apr-2023 21:00, No significant change was found Confirmed by Kye Degroot ([id number]) on 03/03/2025 6:03:32 AM Referred By: REFERRED SELF Confirmed By: Kye Degroot
[2025-03-03 07:14] LABS: Hematocrit (blood only) 31.6 % (42.0-52.0); Hemoglobin 10.9 g/dl (14.0-18.0); Mean Corpuscular Hemoglobin 30.3 pg (25.0-34.0); Mean Corpuscular Volume 87.8 fL (80.0-100.0); Platelet Count 233 K/uL (130-400); RDW Standard Deviation 43.0 fL (36.4-46.3); Red Blood Count 3.60 M/uL (4.70-6.10); White Blood Count 14.94 K/ul (4.8-10.8)
[2025-03-03 07:22] VITALS: BP 148/77; PULSE 73; TEMP 98.4; O2SAT 90
[2025-03-03 07:35] LABS: Hemoglobin A1C 5.7 % (4.5-5.6)
[2025-03-03 07:40] LABS: Anion Gap 6.0 (3-11); Blood Urea Nitrogen 19.0 mg/dl (6-23); Calcium 9.2 mg/dl (8.6-10.3); Carbon Dioxide 26.0 mmol/L (21-32); Chloride 104.0 mmol/L (98-107); Creatinine Clr Calc Pharmacy 73.9 ml/min; Glucose 111.0 mg/dl (70-99(Fasting)); Magnesium 2.0 mg/dl (1.7-2.4); Potassium 4.8 mmol/L (3.5-5.1); Sodium 136.0 mmol/L (136-145)
[2025-03-03] MEDS: LOSARTAN POTASSIUM 50 MG TAB PO SCH (07:57)
[2025-03-03] MEDS: THIAMINE HCL 100 MG TAB PO SCH (07:57)
[2025-03-03] MEDS: FEXOFENADINE HCL 180 MG TAB PO PRN (07:57)
[2025-03-03] MEDS: MULTIVITAMIN TAB PO SCH (07:57)
[2025-03-03] MEDS: FOLIC ACID 1 MG TAB PO SCH (07:57)
--- NOTE | 2025-03-03 10:00 | Pharmacy Report ---
Pharmacy PK ABX Note - Date of Service March 03, 2025 - Assessment and Plan Assessment 59 year old M receiving vancomycin and cefepime for treatment of cellulitis that failed outpatient cephalexin therapy. Pertinent microbiologic data includes: 03/02 blood cultures pending. Day # 2 of antimicrobial therapy. Plan Vancomycin * Loading dose: 2250 mg IV x 1 (03/02/25 @1600) * Maintenance dose: 1500 mg IV every 24 hours * Regimen is predicted to achieve target AUC/RASHEED of 400-600 mg/L.hr * Random level ordered for: 03/04/25 @0444 Pharmacy will continue to follow and will adjust dose/frequency as necessary. Thank you. Pharmacy has transitioned to AUC monitoring for vancomycin. AUC/RASHEED is the preferred PK/PD target and is associated with decreased risk of nephrotoxicity compared to traditional trough targets.
--- NOTE | 2025-03-03 10:44 | Discharge Summary ---
Discharge Summary Date of Service March 03, 2025 Principal Dx & Hospital Course #1 = Principal Diagnosis (1) Cellulitis of left leg: (2) Non-insulin treated type 2 diabetes mellitus: (3) DORETHA (obstructive sleep apnea): (4) Hypomagnesemia: (5) EtOH dependence: (6) Peripheral vascular disease in diabetes mellitus: Plan Patient 59-year-old gentleman presented to the emergency room with increasing leg redness and swelling. Patient had been on placed on outpatient oral antibiotics and seem to have been failing this treatment. Patient was admitted to the hospital. He was given cefepime and vancomycin. Patient reports that within an hour of receiving IV antibiotics his redness, swelling, tenderness significantly improved. On the morning of discharge again the leg is significantly proved. Swelling is decreased. There is no warmth to touch. Redness is significantly improved. Swelling is significant proved. Patient is eager to get home to be discharged. Patient is been afebrile. WBC significantly improved. Ultrasound of the lower extremity was negative for DVT. Arterial ultrasound was negative for significant vascular disease. There may be some moderate vascular disease can be pursued outpatient. MRI of the lower extremity did show some evidence of infection but no definitive evidence of compartment syndrome. Clinical exam today there is no evidence of compartment syndrome. Discussed with the patient about ongoing IV antibiotics versus transition to oral antibiotics. Patient is willing to stay today till he receives his noon antibiotic and then would like to go home. Will place him on oral levofloxacin. To follow-up with his outpatient providers. Notes For Next Care Provider Continue to manage diabetes May need additional evaluation for peripheral vascular disease Medication Changes From Visit Keflex/Augmentin discontinued Levaquin for cellulitis of the leg Admission HPI Per Admitting Provider Patient is a 59 year old M with a past medical history of HTN, DM Type II, microalbuminuria, HLD, DORETHA on CPAP, Alcohol and Tobacco use presenting with left leg cellulitis. Symptoms began ~10-14 days ago with swelling and redness; no associated injury, bug bite, laceration. Was using compression stocking without relief. Went to PCP this Wednesday and prescribed Keflex x 7 day course. Doppler ultrasound of left leg negative for DVT, completed outpatient 3 days ago. Cellulitis without clinical improvement on antibiotics. Denies chills, weight loss, weakness, headache, cognitive changes, vision/hearing changes, chest pain, SOB, difficulty breathing, urinary concerns, N/V/D, joint swelling/pain, ambulation difficulty, skin lesions, bleeding, bruising. Patient with a history of Group B beta strep bacteremia in Apr 2023; admitted to [facility] for treatment. Echo from admission showed-LV is normal in size, mild concentric LVH, LV wall motion is normal, EF 55 to 60%, focal thickening at the base of the noncoronary gasp leaflet of the aortic valve, mobile vegetation not visualized, focal thickening at the base of the posterior mitral valve leaflet; 4 mm mobile lesion at rest to the base suggestive of vegetation. There is mild mitral regurgitation. Patient was treated for infective endocarditis with ceftriaxone 2 g IV daily x 6 weeks and IV gentamicin about x 2 weeks via PICC line. In the emergency department, patient was hemodynamically stable, afebrile, and without signs of sepsis. WBC elevated at 20.54. Blood cultures x 2 drawn. Cefepime started in the ED. No imaging was done in the ED and given the WBC count with 4 days of outpatient antibiotics, MRI w/o ordered. Results pending. Potassium elevated, asymptomatic. EKG w/ NSR, vent rate 84 bpm, and QTc 404. Repeat K+ ordered. Found to have hypomagnesemia with Mag 1.1. Replacement ordered 1gm x 5 bags. As per external chart review, patient was seen by PCP on 02/26/25 for a left leg swelling that was 7-10 days old at time of visit. Venous Doppler negative for DVT 3 days ago. Was prescribed Cephalexin x 7 days. History obtained primarily from the patient and via hospitalization record. The patient's family was at the bedside and assisted with history of present illness and med rec. External chart review obtained from [facility]. Admission Exam Per Admitting Provider See H&P Discharge Exam Constitutional: Alert, nontoxic, no acute distress, sitting in chair HEENT: Mucous membranes moist. Lungs: Clear to auscultation, decreased, no wheezes rales or rhonchi CV: S1-S2, regular Abdomen: Soft, nontender, nondistended Extremities: Left lower extremity swelling significantly improved, no warmth, minimal erythema, no tenderness, significantly improved from admission Neuro: No focal deficits Psych: Cooperative, normal mood Updated Medication List Medication Instructions Recorded Confirmed Type metformin 1,000 mg tablet 1,000 mg PO BID 10/01/20 03/02/25 History montelukast 10 mg tablet 10 mg PO QAM PRN Allergy Symptoms 04/21/23 03/02/25 History fexofenadine 180 mg tablet 180 mg PO DAILY PRN Allergy 03/02/25 03/02/25 History Symptoms fluticasone propionate 50 2 spray intranasal DAILY PRN 03/02/25 03/02/25 History mcg/actuation nasal Allergy Symptoms spray,suspension olmesartan 20 mg tablet 20 mg PO QAM 03/02/25 03/02/25 History sildenafil (pulm.hypertension) 20 50 - 100 mg PO DAILY PRN Erectile 03/02/25 03/02/25 History mg tablet Dysfunction levofloxacin 750 mg tablet 750 mg PO DAILY 7 days #7 tabs 03/03/25 Rx Hospital Stay Data Consultations 03/02/25 12:48 ED Decision to Admit Stat Diagnostic Imagining Performed 03/02/25 13:39 MRI Leg [MR lower leg LT wo con] Urgent 03/02/25 14:04 US arterial duplex LE LT Urgent Reviewed imaging, laboratory and diagnostic studies. Pertinent findings as below. Duplex arterial scan of the lower extremities showed no occlusive disease in the left lower extremity possibly some mild elevation in systolic velocity of the common femoral artery, mid femoral, popliteal, anterior tibial arteries raising possible stenosis. MRSA nasal screen negative Hemoglobin A1c 5.7% Creatinine 1.41, baseline From the rest of his electrolytes are stable WBCs 14.9, significantly improved Hemoglobin 10.9 Platelets 233 Pending Results Patient Have Any Pending Studies at Discharge: Yes Discharge Instructions Given to Patient (Per Discharging Provider) Complete course of antibiotics Total Time Total Time Spent Total Time Spent (In Minutes): 25
[2025-03-04] MEDS ORDERED: VANCOMYCIN LEVEL ONE (05:00)
== END 2025-03-03 12:02 | disposition home or self-care (01) | DRG 603 ==
LOC: ED 10:49 → SUATTDRO 13:23 → EDINP 13:23 → 3N 15:35